=== PATIENT | male | born 1950 | race African-American/Black ===

== ENCOUNTER 2017-05-04 22:40 | Inpatient (IN) | payer MEDICARE, MEDICAID ==
[~2017-05-04] VITALS: Ht 175.3 cm; Wt 80.0 kg
[~2017-05-04 22:40] MED LIST: ASPI81TA30 PO; CARV3.1289 PO; CLOP75TA35 PO; FURO40TA4 PO; GLYB2.5T4 PO; HYDR-569 PO; LISI-604 PO; NIT5P TD; NITR0.4T48 SL; POTA10TA36 PO; SIMV20TA5 PO
[2017-05-04] MEDS ORDERED: normal saline 1000ML IV soln IVB ONE (22:50)
[2017-05-04 23:31] LABS: BASOPHILS % (AUTO) 0.4 % (0-1); EOSINOPHILS # (AUTO) 0.4 X10'3 (0-0.9); EOSINOPHILS % (AUTO) 3.8 % (0-6); HEMATOCRIT 25.2 % (42.0-52.0); LYMPHOCYTES # (AUTO) 0.7 X10'3 (1.1-4.8); MEAN CORPUSCULAR HEMOGLOBIN 25.6 PG (27.0-31.0); MEAN CORPUSCULAR HGB CONC 31.9 % (33.0-36.5); MEAN CORPUSCULAR VOLUME 80.2 FL (78-98); MEAN PLATELET VOLUME 10.3 FL (7.4-10.4); MONOCYTES # (AUTO) 0.9 X10'3 (0-0.9); MONOCYTES % (AUTO) 8.1 % (2-12); NEUTROPHILS # (AUTO) 9.3 X10'3 (1.8-7.7); NEUTROPHILS % (AUTO) 81.7 % (42-75); PLATELET COUNT 192 X10'3 (140-440); RED BLOOD COUNT 3.14 X10'6 (4.70-6.10); RED CELL DISTRIBUTION WIDTH 18.7 % (11.5-14.5); WHITE BLOOD COUNT 11.4 X10'3 (4.5-11.0)
[2017-05-04 23:34] LABS: INR 1.5 INR; PARTIAL THROMBOPLASTIN TIME 26 SECONDS (22-32)
[2017-05-04 23:39] LABS: ALANINE AMINOTRANSFERASE 43 U/L (12-78); ALBUMIN/GLOBULIN RATIO 0.3 (1.1-1.5); ALKALINE PHOSPHATASE 273 IU/L (46-116); ANION GAP 11 (8-16); ASPARTATE AMINO TRANSFERASE 43 U/L (10-37); BILIRUBIN,TOTAL 1.7 MG/DL (0.1-1.0); BLOOD UREA NITROGEN 105 MG/DL (7-18); BUN/CREATININE RATIO 18.9 (5.4-32.0); CALCIUM 8.8 MG/DL (8.5-10.1); CHLORIDE 103 MMOL/L (99-107); CREATININE 5.57 MG/DL (0.60-1.10); GLUCOSE 225 MG/DL (70-104); POTASSIUM 5.5 MMOL/L (3.5-5.1); SODIUM 137 MMOL/L (135-145); TOTAL CARBON DIOXIDE 23.1 MMOL/L (24-32); TOTAL PROTEIN 8.6 G/DL (6.4-8.2); eGFR 12 ML/MIN
[2017-05-04 23:47] LABS: MAGNESIUM 2.5 MG/DL (1.5-2.4); TROPONIN I < 0.04 NG/ML (0.0-0.05)
[2017-05-05] VITALS (7 sets, daily range): BP systolic 111–158; BP diastolic 41–51
[2017-05-05 00:06] LABS: CLARITY,URINE SLIGHTLY CLOUDY (Clear); COLOR,URINE YELLOW (Yellow); GLUCOSE, URINE NEGATIVE (Neg); KETONES,URINE NEGATIVE (Neg); LEUKOCYTE ESTERASE ,URINE SMALL (Neg); NITRITES, URINE NEGATIVE (Neg); OCCULT BLOOD,URINE LARGE (Neg); PH,URINE 5.5 (4.8-8.0); PROTEIN,URINE 100 mg/dl (Neg); UROBILINOGEN,URINE 0.2 E.U/dL (0.2-1.0)
[2017-05-05 00:08] LABS: UA COLLECTION TYPE FOLEY CATH
[2017-05-05 00:14] LABS: BACTERIA,URINE FEW /HPF (Neg); MUCUS STRANDS NONE SEEN /LPF (Neg); RBC,URINE 20-50 /HPF (0-2); SQUAMOUS EPITHELIAL CELL,UR NONE SEEN /LPF (FEW); WBC,URINE 20-30 /HPF (0-4)
[2017-05-05 00:15] LABS: YEAST MANY /HPF (NEGATIVE)
[2017-05-05] MEDS ORDERED: sodium polystyrene sulfonate 15gm/60ml oral suspension PO ONE (00:45)
[2017-05-05] MEDS ORDERED: cefepime 1GM/NS ADD-VANTAGE 100 ML IV ONE (01:00)
[2017-05-05] MEDS ORDERED: vancomycin/NS 1 GM ADD-VANTAGE 250 ML IV ONE (01:00)
[2017-05-05] MEDS ORDERED: azithromycin/NS 500mg/250ml 250 ML IV ONE (01:00)
[2017-05-05 01:40] LABS: ANISOCYTOSIS 2+; NUCLEATED RED BLOOD CELLS 1 /100WBC (0-0); PLATELET ESTIMATE NORMAL; TOTAL CELLS COUNTED 100
[2017-05-05 01:41] LABS: POLYCHROMASIA 1+
[2017-05-05 01:42] LABS: HYPOCHROMASIA 1+
[2017-05-05 01:43] LABS: TARGET CELLS FEW
[2017-05-05] MEDS ORDERED: ondansetron/PF 4mg/2ml inj IV PRN (02:55)
[2017-05-05] MEDS ORDERED: acetaminophen 325mg tablet PO PRN (02:55)
[2017-05-05] MEDS ORDERED: MESSAGE TO PHARMACY PO ONE (03:00)
[2017-05-05] MEDS ORDERED: dextrose 50%-water 50ml dispensing syringe IV PRN ×2 (03:00)
[2017-05-05] MEDS ORDERED: fluconazole-Diflucan 100MG/NS 50 ML IV ONE ×2 (03:00→04:04)
[2017-05-05] MEDS ORDERED: dextrose ORAL solution 15 GM/59 ML bottle PO PRN ×2 (03:00)
[2017-05-05] MEDS ORDERED: glucagon, human recombinant 1mg kit SUBCUT PRN (03:00)
[2017-05-05] MEDS: normal saline 1000ml 1,000 ML IV SCH ×2 (03:24→16:43)
[2017-05-05] MEDS ORDERED: ISOS30TA6 PO (03:50)
[2017-05-05] MEDS ORDERED: PREG50CA PO (03:50)
[2017-05-05] MEDS ORDERED: CEFE2FRO IV (03:50)
[2017-05-05] MEDS ORDERED: GUAI100L97 PO (03:50)
[2017-05-05] MEDS ORDERED: INSU100C10 SQ (03:50)
[2017-05-05] MEDS ORDERED: POLY17PO10 PO (03:50)
[2017-05-05] MEDS ORDERED: LEVO500T2 PO (03:50)
[2017-05-05] MEDS ORDERED: FLO0.4C PO (03:50)
[2017-05-05] MEDS ORDERED: DOCU-28 PO (03:50)
[2017-05-05] MEDS ORDERED: vancomycin/NS 1 GM ADD-VANTAGE 250 ML IV PRN (06:30)
[2017-05-05] MEDS ORDERED: fluconazole-Diflucan 200mg/NS 100 ML IV SCH (08:00)
[2017-05-05] MEDS ORDERED: [UNRECOGNIZED DRUG - OTHER] IV ONE (08:00)
[2017-05-05] MEDS: carVEDilol 3.125mg tablet PO SCH ×2 (08:00→20:00)
[2017-05-05] MEDS: meropenem inj 500 MG in normal saline 100ml IV soln 100 ML IV SCH ×2 (08:12→16:43)
[2017-05-05] MEDS: clopidogrel 75mg tablet PO SCH (08:18)
[2017-05-05] MEDS: aspirin 81mg tab.chew PO SCH (08:20)
[2017-05-05] MEDS: tamsulosin 0.4mg capsule PO SCH (08:20)
[2017-05-05] MEDS: isosorbide mononitrate 30mg tab.SR.24H PO SCH (08:20)
[2017-05-05] MEDS: insulin Lispro (HumaLOG) vial - multi-dose SQ SCH ×2 (08:27→13:51)
[2017-05-05] MEDS: DOBUTamine-DoBUTrex 500mg/D5W 250 ML IV SCH (10:55)
[2017-05-05 12:10] LABS: FERRITIN 425 NG/ML (26-388)
[2017-05-05 12:46] LABS: % IRON SATURATION 15 % (11-46); IRON 33 UG/DL (53-167); TOTAL IRON BINDING CAPACITY 220 UG/DL (259-388)
[2017-05-05] MEDS: Insulin Detemir pen SQ SCH (21:52)
[2017-05-06] VITALS (10 sets, daily range): BP systolic 134–157; BP diastolic 41–72
[2017-05-06] MEDS: meropenem inj 500 MG in normal saline 100ml IV soln 100 ML IV SCH ×2 (00:17→09:06)
[2017-05-06] MEDS: VANCOMYCIN LEVEL IV SCH (03:00)
[2017-05-06] MEDS: normal saline 1000ml 1,000 ML IV SCH ×2 (05:34→18:54)
[2017-05-06 06:09] LABS: BASOPHILS # (AUTO) 0.1 X10'3 (0-0.2); BASOPHILS % (AUTO) 0.8 % (0-1); EOSINOPHILS # (AUTO) 0.4 X10'3 (0-0.9); EOSINOPHILS % (AUTO) 2.9 % (0-6); HEMATOCRIT 23.1 % (42.0-52.0); HEMOGLOBIN 7.5 g/dl (14.0-17.9); LYMPHOCYTES % (AUTO) 7.5 % (21-51); MEAN CORPUSCULAR HEMOGLOBIN 26.1 PG (27.0-31.0); MEAN CORPUSCULAR HGB CONC 32.5 % (33.0-36.5); MEAN CORPUSCULAR VOLUME 80.2 FL (78-98); MEAN PLATELET VOLUME 9.8 FL (7.4-10.4); MONOCYTES % (AUTO) 7.7 % (2-12); NEUTROPHILS # (AUTO) 10.8 X10'3 (1.8-7.7); NEUTROPHILS % (AUTO) 81.1 % (42-75); PLATELET COUNT 224 X10'3 (140-440); RED BLOOD COUNT 2.88 X10'6 (4.70-6.10); RED CELL DISTRIBUTION WIDTH 18.3 % (11.5-14.5); WHITE BLOOD COUNT 13.3 X10'3 (4.5-11.0)
[2017-05-06 06:32] LABS: ALBUMIN 1.7 G/DL (3.4-5.0); ANION GAP 11 (8-16); BLOOD UREA NITROGEN 103 MG/DL (7-18); BUN/CREATININE RATIO 16.6 (5.4-32.0); CALCIUM 8.5 MG/DL (8.5-10.1); CHLORIDE 108 MMOL/L (99-107); CREATININE 6.21 MG/DL (0.60-1.10); GLUCOSE 111 MG/DL (70-104); MAGNESIUM 2.3 MG/DL (1.5-2.4); POTASSIUM 5.1 MMOL/L (3.5-5.1); SODIUM 141 MMOL/L (135-145); TOTAL CARBON DIOXIDE 22.1 MMOL/L (24-32); VANCOMYCIN,RANDOM 34.3 UG/ML; eGFR 11 ML/MIN
[2017-05-06] MEDS: clopidogrel 75mg tablet PO SCH (08:00)
[2017-05-06] MEDS: tamsulosin 0.4mg capsule PO SCH (08:00)
[2017-05-06] MEDS: isosorbide mononitrate 30mg tab.SR.24H PO SCH (08:55)
[2017-05-06] MEDS: carVEDilol 3.125mg tablet PO SCH ×2 (08:57→20:00)
[2017-05-06] MEDS: aspirin 81mg tab.chew PO SCH (08:57)
[2017-05-06] MEDS: DOBUTamine-DoBUTrex 500mg/D5W 250 ML IV SCH (09:05)
[2017-05-06 13:16] LABS: PHOSPHORUS 8.6 MG/DL (2.3-4.5)
[2017-05-06] MEDS ORDERED: meropenem inj 500 MG in normal saline 100ml IV soln 100 ML IV SCH (20:00)
[2017-05-06] MEDS: Insulin Detemir pen SQ SCH (21:00)
[2017-05-07 03:00] VITALS: BP 132/50
[2017-05-07] MEDS: VANCOMYCIN LEVEL IV SCH (03:00)
[2017-05-07 05:30] LABS: BASOPHILS # (AUTO) 0.2 X10'3 (0-0.2); BASOPHILS % (AUTO) 1.6 % (0-1); EOSINOPHILS # (AUTO) 0.3 X10'3 (0-0.9); EOSINOPHILS % (AUTO) 2.2 % (0-6); HEMOGLOBIN 7.3 g/dl (14.0-17.9); LYMPHOCYTES # (AUTO) 0.8 X10'3 (1.1-4.8); LYMPHOCYTES % (AUTO) 7.3 % (21-51); MEAN CORPUSCULAR HEMOGLOBIN 25.6 PG (27.0-31.0); MEAN CORPUSCULAR HGB CONC 31.8 % (33.0-36.5); MEAN CORPUSCULAR VOLUME 80.6 FL (78-98); MEAN PLATELET VOLUME 9.6 FL (7.4-10.4); MONOCYTES # (AUTO) 0.8 X10'3 (0-0.9); NEUTROPHILS # (AUTO) 9.5 X10'3 (1.8-7.7); NEUTROPHILS % (AUTO) 81.9 % (42-75); PLATELET COUNT 238 X10'3 (140-440); RED BLOOD COUNT 2.85 X10'6 (4.70-6.10); WHITE BLOOD COUNT 11.6 X10'3 (4.5-11.0)
[2017-05-07 06:00] LABS: ALBUMIN 1.6 G/DL (3.4-5.0); ANION GAP 10 (8-16); BLOOD UREA NITROGEN 108 MG/DL (7-18); BUN/CREATININE RATIO 15.4 (5.4-32.0); CALCIUM 8.3 MG/DL (8.5-10.1); CHLORIDE 110 MMOL/L (99-107); CREATININE 7.03 MG/DL (0.60-1.10); GLUCOSE 92 MG/DL (70-104); POTASSIUM 5.7 MMOL/L (3.5-5.1); SODIUM 141 MMOL/L (135-145); TOTAL CARBON DIOXIDE 21.4 MMOL/L (24-32); VANCOMYCIN,RANDOM 30.1 UG/ML; eGFR 10 ML/MIN
[2017-05-07 07:00] VITALS: BP 121/42
[2017-05-07] MEDS: tamsulosin 0.4mg capsule PO SCH (08:00)
[2017-05-07] MEDS: clopidogrel 75mg tablet PO SCH (08:00)
[2017-05-07] MEDS: aspirin 81mg tab.chew PO SCH (08:00)
[2017-05-07] MEDS: isosorbide mononitrate 30mg tab.SR.24H PO SCH (08:00)
[2017-05-07] MEDS: carVEDilol 3.125mg tablet PO SCH ×2 (08:00→20:00)
[2017-05-07 11:00] VITALS: BP 118/44
[2017-05-07] MEDS ORDERED: normal saline 1000ml 100 ML IV PRN (12:34)
[2017-05-07] MEDS ORDERED: normal saline 1000ml 250 ML IV PRN (12:34)
[2017-05-07] MEDS ORDERED: epoetin 20,000 units/ml inj IV ONE (12:35)
[2017-05-07] MEDS ORDERED: LIDOcaine 2% 5ml jelly MM ONE (12:50)
[2017-05-07 15:00] VITALS: BP 115/43
[2017-05-07 19:00] VITALS: BP 122/40
[2017-05-07] MEDS: Insulin Detemir pen SQ SCH (21:00)
[2017-05-07 23:00] VITALS: BP 122/45
[2017-05-08] VITALS (14 sets, daily range): BP systolic 119–155; BP diastolic 36–51
[2017-05-08] MEDS: VANCOMYCIN LEVEL IV SCH (03:00)
[2017-05-08 06:00] LABS: BASOPHILS # (AUTO) 0.1 X10'3 (0-0.2); BASOPHILS % (AUTO) 0.7 % (0-1); EOSINOPHILS # (AUTO) 0.2 X10'3 (0-0.9); EOSINOPHILS % (AUTO) 1.8 % (0-6); HEMATOCRIT 23.4 % (42.0-52.0); HEMOGLOBIN 7.5 g/dl (14.0-17.9); LYMPHOCYTES # (AUTO) 0.9 X10'3 (1.1-4.8); MEAN CORPUSCULAR HEMOGLOBIN 25.8 PG (27.0-31.0); MEAN CORPUSCULAR HGB CONC 31.9 % (33.0-36.5); MEAN CORPUSCULAR VOLUME 80.9 FL (78-98); MEAN PLATELET VOLUME 9.6 FL (7.4-10.4); MONOCYTES # (AUTO) 0.8 X10'3 (0-0.9); MONOCYTES % (AUTO) 7.5 % (2-12); PLATELET COUNT 256 X10'3 (140-440); RED CELL DISTRIBUTION WIDTH 19.5 % (11.5-14.5)
[2017-05-08 06:19] LABS: ALBUMIN 1.6 G/DL (3.4-5.0); ANION GAP 12 (8-16); BLOOD UREA NITROGEN 116 MG/DL (7-18); BUN/CREATININE RATIO 14.2 (5.4-32.0); CALCIUM 7.9 MG/DL (8.5-10.1); CHLORIDE 110 MMOL/L (99-107); CREATININE 8.16 MG/DL (0.60-1.10); GLUCOSE 78 MG/DL (70-104); SODIUM 141 MMOL/L (135-145); TOTAL CARBON DIOXIDE 19.3 MMOL/L (24-32); VANCOMYCIN,RANDOM 29.3 UG/ML; eGFR 8 ML/MIN
[2017-05-08 06:34] LABS: POTASSIUM 6.2 MMOL/L (3.5-5.1)
[2017-05-08] MEDS: carVEDilol 3.125mg tablet PO SCH ×2 (06:45→20:00)
[2017-05-08] MEDS: aspirin 81mg tab.chew PO SCH (06:45)
[2017-05-08] MEDS: LACTOBACILLUS RHAMNOSUS GG 15 billion unit sprinkle caps PO SCH (06:45)
[2017-05-08] MEDS: isosorbide mononitrate 30mg tab.SR.24H PO SCH (06:46)
[2017-05-08] MEDS: tamsulosin 0.4mg capsule PO SCH (06:46)
[2017-05-08] MEDS: clopidogrel 75mg tablet PO SCH (06:46)
[2017-05-08] MEDS ORDERED: sodium polystyrene sulfonate 15gm/60ml oral suspension PO ONE (07:50)
[2017-05-08] MEDS ORDERED: heparin 1,000 units/ml 10ml inj HE ONE ×2 (08:00)
[2017-05-08] MEDS: meropenem inj 500 MG in normal saline 100ml IV soln 100 ML IV SCH (08:41)
[2017-05-08] MEDS ORDERED: POTA10TA15 (11:28)
[2017-05-08] MEDS ORDERED: ATOR40TA72 (11:28)
[2017-05-08] MEDS ORDERED: FERR325T28 (11:28)
[2017-05-08] MEDS ORDERED: LIDOcaine 1%/PF (10mg/ml) 5ml vial SQ ONE ×2 (11:35→12:25)
[2017-05-08] MEDS ORDERED: heparin 1,000 units/ml 10ml inj ICATH ONE ×2 (11:35→12:25)
[2017-05-08] MEDS ORDERED: LIDOcaine 1%/PF (10mg/ml) 5ml vial ONE (11:36)
[2017-05-08] MEDS ORDERED: heparin 1,000unit/ml 10ml vial 10 ML ONE (11:38)
[2017-05-08] MEDS ORDERED: fentaNYL/PF 50MCG/1 ML 2ML syringe ONE (12:17)
[2017-05-08] MEDS ORDERED: midazolam 2 mg/2 ml injection ONE (12:17)
[2017-05-08] MEDS ORDERED: midazolam 2 mg/2 ml injection IV PRN (12:25)
[2017-05-08] MEDS ORDERED: fentaNYL/PF 50MCG/1 ML 2ML syringe IV PRN (12:25)
[2017-05-08] MEDS: Insulin Detemir pen SQ SCH (21:00)
[2017-05-09 03:00] VITALS: BP 126/33
[2017-05-09] MEDS: VANCOMYCIN LEVEL IV SCH (03:00)
[2017-05-09 05:25] LABS: BASOPHILS % (AUTO) 0.2 % (0-1); EOSINOPHILS # (AUTO) 0.1 X10'3 (0-0.9); HEMATOCRIT 23.1 % (42.0-52.0); HEMOGLOBIN 7.4 g/dl (14.0-17.9); LYMPHOCYTES # (AUTO) 0.9 X10'3 (1.1-4.8); LYMPHOCYTES % (AUTO) 6.7 % (21-51); MEAN CORPUSCULAR HEMOGLOBIN 25.8 PG (27.0-31.0); MEAN CORPUSCULAR HGB CONC 32.2 % (33.0-36.5); MEAN PLATELET VOLUME 8.6 FL (7.4-10.4); MONOCYTES # (AUTO) 0.6 X10'3 (0-0.9); NEUTROPHILS # (AUTO) 11.1 X10'3 (1.8-7.7); NEUTROPHILS % (AUTO) 87.1 % (42-75); PLATELET COUNT 261 X10'3 (140-440); RED BLOOD COUNT 2.89 X10'6 (4.70-6.10); WHITE BLOOD COUNT 12.8 X10'3 (4.5-11.0)
[2017-05-09 06:00] VITALS: BP 128/37
[2017-05-09 06:05] LABS: ALBUMIN 1.7 G/DL (3.4-5.0); ANION GAP 10 (8-16); BLOOD UREA NITROGEN 70 MG/DL (7-18); BUN/CREATININE RATIO 12.1 (5.4-32.0); CALCIUM 7.7 MG/DL (8.5-10.1); CHLORIDE 105 MMOL/L (99-107); GLUCOSE 83 MG/DL (70-104); POTASSIUM 4.8 MMOL/L (3.5-5.1); SODIUM 139 MMOL/L (135-145); TOTAL CARBON DIOXIDE 24.4 MMOL/L (24-32); VANCOMYCIN,RANDOM 22.6 UG/ML; eGFR 12 ML/MIN
[2017-05-09] MEDS ORDERED: heparin 1,000unit/ml 10ml vial 10 ML IV ONE (06:34)
[2017-05-09] MEDS ORDERED: epoetin 20,000 units/ml inj IV ONE (06:35)
[2017-05-09] MEDS ORDERED: sodium ferric gluc complex inj 25 MG in normal saline 50ml IV soln 48 ML IV ONE (06:35)
[2017-05-09] MEDS ORDERED: albumin (human) 25% 100ml IV 100 ML IV PRN (06:35)
[2017-05-09] MEDS ORDERED: heparin 1,000 units/ml 10ml inj IV ONE (06:35)
[2017-05-09] MEDS ORDERED: heparin 1,000 units/ml 10ml inj HE ONE ×2 (06:40)
[2017-05-09] MEDS: LACTOBACILLUS RHAMNOSUS GG 15 billion unit sprinkle caps PO SCH (07:30)
[2017-05-09] MEDS: aspirin 81mg tab.chew PO SCH (08:00)
[2017-05-09] MEDS: carVEDilol 3.125mg tablet PO SCH ×2 (08:00→20:00)
[2017-05-09] MEDS: clopidogrel 75mg tablet PO SCH (08:00)
[2017-05-09] MEDS: meropenem inj 500 MG in normal saline 100ml IV soln 100 ML IV SCH (08:23)
[2017-05-09 11:00] VITALS: BP 135/37
[2017-05-09] MEDS: sodium ferric gluc complex inj 125 MG in normal saline 100ml IV soln 100 ML IV SCH (13:01)
[2017-05-09 15:00] VITALS: BP 150/56
[2017-05-09 18:30] VITALS: BP 158/49
[2017-05-09 22:00] VITALS: BP 155/53
[2017-05-09] MEDS: Insulin Detemir pen SQ SCH (22:43)
[2017-05-10 02:00] VITALS: BP 169/50
[2017-05-10 05:26] LABS: BASOPHILS # (AUTO) 0.1 X10'3 (0-0.2); BASOPHILS % (AUTO) 0.5 % (0-1); EOSINOPHILS % (AUTO) 0 % (0-6); HEMATOCRIT 23.9 % (42.0-52.0); HEMOGLOBIN 7.6 g/dl (14.0-17.9); LYMPHOCYTES # (AUTO) 0.9 X10'3 (1.1-4.8); LYMPHOCYTES % (AUTO) 6.9 % (21-51); MEAN CORPUSCULAR HEMOGLOBIN 25.7 PG (27.0-31.0); MEAN CORPUSCULAR HGB CONC 31.8 % (33.0-36.5); MEAN CORPUSCULAR VOLUME 80.7 FL (78-98); MEAN PLATELET VOLUME 8.6 FL (7.4-10.4); MONOCYTES # (AUTO) 0.8 X10'3 (0-0.9); MONOCYTES % (AUTO) 6.2 % (2-12); NEUTROPHILS # (AUTO) 11.3 X10'3 (1.8-7.7); NEUTROPHILS % (AUTO) 86.4 % (42-75); PLATELET COUNT 274 X10'3 (140-440); RED BLOOD COUNT 2.96 X10'6 (4.70-6.10); RED CELL DISTRIBUTION WIDTH 19.5 % (11.5-14.5); WHITE BLOOD COUNT 13.1 X10'3 (4.5-11.0)
[2017-05-10 05:55] LABS: ALBUMIN 1.7 G/DL (3.4-5.0); ANION GAP 10 (8-16); BLOOD UREA NITROGEN 41 MG/DL (7-18); BUN/CREATININE RATIO 9.8 (5.4-32.0); CALCIUM 7.7 MG/DL (8.5-10.1); CHLORIDE 102 MMOL/L (99-107); GLUCOSE 83 MG/DL (70-104); POTASSIUM 3.9 MMOL/L (3.5-5.1); SODIUM 138 MMOL/L (135-145); TOTAL CARBON DIOXIDE 26.1 MMOL/L (24-32); VANCOMYCIN,RANDOM 19.4 UG/ML; eGFR 17 ML/MIN
[2017-05-10 06:00] VITALS: BP 149/50
[2017-05-10] MEDS: VANCOMYCIN LEVEL IV SCH (06:06)
[2017-05-10] MEDS ORDERED: heparin 1,000unit/ml 10ml vial 10 ML IV ONE (07:07)
[2017-05-10] MEDS ORDERED: albumin (human) 25% 100ml IV 100 ML IV PRN (07:10)
[2017-05-10] MEDS ORDERED: heparin 1,000 units/ml 10ml inj IV ONE (07:10)
[2017-05-10] MEDS ORDERED: epoetin 20,000 units/ml inj IV ONE (07:10)
[2017-05-10] MEDS ORDERED: heparin 1,000 units/ml 10ml inj HE ONE ×2 (07:15)
[2017-05-10] MEDS: LACTOBACILLUS RHAMNOSUS GG 15 billion unit sprinkle caps PO SCH (07:30)
[2017-05-10] MEDS: carVEDilol 3.125mg tablet PO SCH ×2 (08:00→20:00)
[2017-05-10] MEDS: clopidogrel 75mg tablet PO SCH (08:00)
[2017-05-10] MEDS: aspirin 81mg tab.chew PO SCH (08:00)
[2017-05-10] MEDS: meropenem inj 500 MG in normal saline 100ml IV soln 100 ML IV SCH (08:15)
[2017-05-10 08:41] LABS: ANISOCYTOSIS 2+; HYPOCHROMASIA 2+; LARGE PLATELETS FEW; PLATELET ESTIMATE NORMAL; POIKILOCYTOSIS 1+; POLYCHROMASIA 1+
[2017-05-10] MEDS: cefTRIAXone 1g/NS 100ml IVPB 100 ML IV SCH (10:26)
[2017-05-10 11:00] VITALS: BP 151/50
[2017-05-10 11:22] LABS: OCCULT BLOOD STOOL NEGATIVE (Neg)
[2017-05-10] MEDS: sodium ferric gluc complex inj 125 MG in normal saline 100ml IV soln 100 ML IV SCH (11:33)
[2017-05-10] MEDS: levetiracetam inj 500 MG in normal saline 100ml IV soln 95 ML IV SCH ×2 (13:20→21:19)
[2017-05-10 15:00] VITALS: BP 146/60
[2017-05-10 18:00] VITALS: BP 142/54
[2017-05-10] MEDS: Insulin Detemir pen SQ SCH (21:00)
[2017-05-10 22:00] VITALS: BP 151/53
[2017-05-11 02:00] VITALS: BP 153/48
[2017-05-11 06:00] VITALS: BP 152/44
[2017-05-11] MEDS: cefTRIAXone 1g/NS 100ml IVPB 100 ML IV SCH (08:37)
[2017-05-11] MEDS: levetiracetam inj 500 MG in normal saline 100ml IV soln 95 ML IV SCH (08:37)
[2017-05-11] MEDS: sodium ferric gluc complex inj 125 MG in normal saline 100ml IV soln 100 ML IV SCH (08:38)
[2017-05-11 08:41] LABS: BASOPHILS % (AUTO) 0.3 % (0-1); EOSINOPHILS # (AUTO) 0.2 X10'3 (0-0.9); EOSINOPHILS % (AUTO) 1.7 % (0-6); HEMATOCRIT 24.2 % (42.0-52.0); HEMOGLOBIN 8.4 g/dl (14.0-17.9); LYMPHOCYTES # (AUTO) 0.9 X10'3 (1.1-4.8); MEAN CORPUSCULAR HEMOGLOBIN 27.3 PG (27.0-31.0); MEAN CORPUSCULAR HGB CONC 34.5 % (33.0-36.5); MEAN CORPUSCULAR VOLUME 79.2 FL (78-98); MEAN PLATELET VOLUME 8.1 FL (7.4-10.4); MONOCYTES # (AUTO) 0.9 X10'3 (0-0.9); MONOCYTES % (AUTO) 7.5 % (2-12); NEUTROPHILS # (AUTO) 10.5 X10'3 (1.8-7.7); NEUTROPHILS % (AUTO) 83.5 % (42-75); PLATELET COUNT 315 X10'3 (140-440); RED BLOOD COUNT 3.06 X10'6 (4.70-6.10); RED CELL DISTRIBUTION WIDTH 19.2 % (11.5-14.5); WHITE BLOOD COUNT 12.5 X10'3 (4.5-11.0)
[2017-05-11] MEDS: carVEDilol 3.125mg tablet PO SCH ×2 (08:51→20:00)
[2017-05-11] MEDS: clopidogrel 75mg tablet PO SCH (08:51)
[2017-05-11] MEDS: LACTOBACILLUS RHAMNOSUS GG 15 billion unit sprinkle caps PO SCH (08:51)
[2017-05-11] MEDS: aspirin 81mg tab.chew PO SCH (08:51)
[2017-05-11 08:54] LABS: ALBUMIN 1.8 G/DL (3.4-5.0); ANION GAP 9 (8-16); BLOOD UREA NITROGEN 24 MG/DL (7-18); BUN/CREATININE RATIO 7.3 (5.4-32.0); CALCIUM 8.1 MG/DL (8.5-10.1); CHLORIDE 102 MMOL/L (99-107); GLUCOSE 80 MG/DL (70-104); POTASSIUM 3.9 MMOL/L (3.5-5.1); SODIUM 139 MMOL/L (135-145); TOTAL CARBON DIOXIDE 28.5 MMOL/L (24-32); eGFR 23 ML/MIN
[2017-05-11 09:13] LABS: NUCLEATED RED BLOOD CELLS 1 /100WBC (0-0); TOTAL CELLS COUNTED 100
[2017-05-11 09:14] LABS: ANISOCYTOSIS 2+; HYPOCHROMASIA 1+; LARGE PLATELETS FEW; PLATELET ESTIMATE NORMAL; POLYCHROMASIA 1+; ROULEAUX 1+; TARGET CELLS 1+; TOXIC GRANULATION 1+
[2017-05-11 11:00] VITALS: BP 153/50
[2017-05-11 13:28] LABS: HBSAG SCREEN Negative (Negative)
[2017-05-11 15:00] VITALS: BP 146/76
[2017-05-11 19:00] VITALS: BP 147/52
[2017-05-11] MEDS: Insulin Detemir pen SQ SCH (21:00)
[2017-05-11 23:00] VITALS: BP 151/70
[2017-05-12 03:00] VITALS: BP 167/58
[2017-05-12 06:00] VITALS: BP 112/61
[2017-05-12] MEDS: aspirin 81mg tab.chew PO SCH ×2 (07:32→07:43)
[2017-05-12] MEDS: clopidogrel 75mg tablet PO SCH ×2 (07:32→07:44)
[2017-05-12] MEDS: cefTRIAXone 1g/NS 100ml IVPB 100 ML IV SCH (07:32)
[2017-05-12] MEDS: carVEDilol 3.125mg tablet PO SCH ×3 (07:33→19:44)
[2017-05-12] MEDS: isosorbide mononitrate 30mg tab.SR.24H PO SCH (08:00)
[2017-05-12] MEDS: sodium ferric gluc complex inj 125 MG in normal saline 100ml IV soln 100 ML IV SCH (08:35)
[2017-05-12 08:37] LABS: BASOPHILS # (AUTO) 0.1 X10'3 (0-0.2); BASOPHILS % (AUTO) 0.7 % (0-1); EOSINOPHILS # (AUTO) 0.2 X10'3 (0-0.9); EOSINOPHILS % (AUTO) 1.4 % (0-6); HEMATOCRIT 24.7 % (42.0-52.0); HEMOGLOBIN 7.9 g/dl (14.0-17.9); LYMPHOCYTES # (AUTO) 1.1 X10'3 (1.1-4.8); LYMPHOCYTES % (AUTO) 9.4 % (21-51); MEAN CORPUSCULAR HGB CONC 32.1 % (33.0-36.5); MEAN CORPUSCULAR VOLUME 81.1 FL (78-98); MONOCYTES # (AUTO) 0.9 X10'3 (0-0.9); MONOCYTES % (AUTO) 7.3 % (2-12); NEUTROPHILS # (AUTO) 9.5 X10'3 (1.8-7.7); NEUTROPHILS % (AUTO) 81.2 % (42-75); PLATELET COUNT 317 X10'3 (140-440); RED BLOOD COUNT 3.05 X10'6 (4.70-6.10); RED CELL DISTRIBUTION WIDTH 19.9 % (11.5-14.5); WHITE BLOOD COUNT 11.7 X10'3 (4.5-11.0)
[2017-05-12 08:47] LABS: ALBUMIN 1.9 G/DL (3.4-5.0); ANION GAP 9 (8-16); BLOOD UREA NITROGEN 33 MG/DL (7-18); BUN/CREATININE RATIO 6.9 (5.4-32.0); CALCIUM 8.4 MG/DL (8.5-10.1); CHLORIDE 103 MMOL/L (99-107); GLUCOSE 108 MG/DL (70-104); POTASSIUM 3.7 MMOL/L (3.5-5.1); SODIUM 140 MMOL/L (135-145); TOTAL CARBON DIOXIDE 27.9 MMOL/L (24-32); eGFR 15 ML/MIN
[2017-05-12] MEDS ORDERED: heparin 1,000unit/ml 10ml vial 10 ML IV ONE (10:44)
[2017-05-12] MEDS ORDERED: heparin 1,000 units/ml 10ml inj IV ONE (10:45)
[2017-05-12] MEDS ORDERED: albumin (human) 25% 100ml IV 100 ML IV PRN (10:45)
[2017-05-12] MEDS ORDERED: epoetin 20,000 units/ml inj IV ONE (10:45)
[2017-05-12] MEDS ORDERED: heparin 1,000 units/ml 10ml inj HE ONE ×2 (10:50→17:15)
[2017-05-12 11:00] VITALS: BP 151/58
[2017-05-12 15:00] VITALS: BP 146/89
[2017-05-12 18:00] VITALS: BP 151/66
[2017-05-12] MEDS: Insulin Detemir pen SQ SCH (21:00)
[2017-05-12 22:00] VITALS: BP 156/70
[2017-05-13 02:00] VITALS: BP 155/60
[2017-05-13 06:00] VITALS: BP 156/70
[2017-05-13] MEDS ORDERED: sincalide inj 1.6 MCG in normal saline 50ml IV soln 50 ML IV ONE ×2 (09:30→13:45)
[2017-05-13] MEDS: isosorbide mononitrate 30mg tab.SR.24H PO SCH (09:37)
[2017-05-13] MEDS: clopidogrel 75mg tablet PO SCH (09:37)
[2017-05-13] MEDS: cefTRIAXone 1g/NS 100ml IVPB 100 ML IV SCH (09:37)
[2017-05-13] MEDS: aspirin 81mg tab.chew PO SCH (09:38)
[2017-05-13] MEDS: carVEDilol 3.125mg tablet PO SCH ×2 (09:38→20:37)
[2017-05-13 11:00] VITALS: BP 143/60
[2017-05-13 11:00] LABS: BASOPHILS # (AUTO) 0.2 X10'3 (0-0.2); BASOPHILS % (AUTO) 1.5 % (0-1); EOSINOPHILS # (AUTO) 0.3 X10'3 (0-0.9); EOSINOPHILS % (AUTO) 2.1 % (0-6); HEMATOCRIT 24.6 % (42.0-52.0); HEMOGLOBIN 7.8 g/dl (14.0-17.9); LYMPHOCYTES # (AUTO) 1.3 X10'3 (1.1-4.8); LYMPHOCYTES % (AUTO) 10.4 % (21-51); MEAN CORPUSCULAR HGB CONC 31.7 % (33.0-36.5); MEAN CORPUSCULAR VOLUME 82.2 FL (78-98); MONOCYTES # (AUTO) 0.8 X10'3 (0-0.9); MONOCYTES % (AUTO) 6.7 % (2-12); NEUTROPHILS # (AUTO) 9.9 X10'3 (1.8-7.7); NEUTROPHILS % (AUTO) 79.3 % (42-75); PLATELET COUNT 310 X10'3 (140-440); RED BLOOD COUNT 2.99 X10'6 (4.70-6.10); RED CELL DISTRIBUTION WIDTH 20.2 % (11.5-14.5); WHITE BLOOD COUNT 12.4 X10'3 (4.5-11.0)
[2017-05-13 11:13] LABS: ALANINE AMINOTRANSFERASE 23 U/L (12-78); ALBUMIN 1.8 G/DL (3.4-5.0); ALBUMIN/GLOBULIN RATIO 0.3 (1.1-1.5); ALKALINE PHOSPHATASE 135 IU/L (46-116); ANION GAP 6 (8-16); ASPARTATE AMINO TRANSFERASE 27 U/L (10-37); BILIRUBIN,TOTAL 0.8 MG/DL (0.1-1.0); BLOOD UREA NITROGEN 21 MG/DL (7-18); BUN/CREATININE RATIO 5.8 (5.4-32.0); CALCIUM 7.9 MG/DL (8.5-10.1); CHLORIDE 102 MMOL/L (99-107); GLUCOSE 148 MG/DL (70-104); NUCLEATED RED BLOOD CELLS 3 /100WBC (0-0); POTASSIUM 3.6 MMOL/L (3.5-5.1); SODIUM 137 MMOL/L (135-145); TOTAL CARBON DIOXIDE 28.8 MMOL/L (24-32); TOTAL CELLS COUNTED 100; TOTAL PROTEIN 7.8 G/DL (6.4-8.2); eGFR 21 ML/MIN
[2017-05-13 11:14] LABS: ANISOCYTOSIS 2+; HYPOCHROMASIA 1+; MICROCYTOSIS 1+; PLATELET ESTIMATE NORMAL; POLYCHROMASIA 1+; TARGET CELLS 1+
[2017-05-13 15:00] VITALS: BP 143/59
[2017-05-13] MEDS: sodium ferric gluc complex inj 125 MG in normal saline 100ml IV soln 100 ML IV SCH (15:56)
[2017-05-13 19:00] VITALS: BP 140/56
[2017-05-13] MEDS: Insulin Detemir pen SQ SCH (20:37)
[2017-05-13] MEDS: heparin, porcine 5000 units/ml vial SQ SCH (20:37)
[2017-05-13 22:00] VITALS: BP 132/61
[2017-05-14 02:00] VITALS: BP 131/61
[2017-05-14 05:30] VITALS: BP 142/61
[2017-05-14 05:31] LABS: BASOPHILS % (AUTO) 0.2 % (0-1); EOSINOPHILS # (AUTO) 0.4 X10'3 (0-0.9); EOSINOPHILS % (AUTO) 3.1 % (0-6); HEMATOCRIT 25.5 % (42.0-52.0); HEMOGLOBIN 8.1 g/dl (14.0-17.9); LYMPHOCYTES # (AUTO) 1.5 X10'3 (1.1-4.8); LYMPHOCYTES % (AUTO) 12.5 % (21-51); MEAN CORPUSCULAR HEMOGLOBIN 26.4 PG (27.0-31.0); MEAN CORPUSCULAR HGB CONC 31.9 % (33.0-36.5); MEAN CORPUSCULAR VOLUME 82.6 FL (78-98); MEAN PLATELET VOLUME 8.2 FL (7.4-10.4); MONOCYTES # (AUTO) 0.9 X10'3 (0-0.9); MONOCYTES % (AUTO) 7.7 % (2-12); NEUTROPHILS # (AUTO) 9.3 X10'3 (1.8-7.7); NEUTROPHILS % (AUTO) 76.5 % (42-75); PLATELET COUNT 305 X10'3 (140-440); RED BLOOD COUNT 3.09 X10'6 (4.70-6.10); RED CELL DISTRIBUTION WIDTH 21.3 % (11.5-14.5); WHITE BLOOD COUNT 12.1 X10'3 (4.5-11.0)
[2017-05-14 05:53] LABS: ALBUMIN 1.9 G/DL (3.4-5.0); ANION GAP 8 (8-16); BLOOD UREA NITROGEN 29 MG/DL (7-18); BUN/CREATININE RATIO 6.3 (5.4-32.0); CALCIUM 8.5 MG/DL (8.5-10.1); CHLORIDE 102 MMOL/L (99-107); GLUCOSE 121 MG/DL (70-104); POTASSIUM 4.2 MMOL/L (3.5-5.1); SODIUM 138 MMOL/L (135-145); TOTAL CARBON DIOXIDE 27.8 MMOL/L (24-32); eGFR 15 ML/MIN
[2017-05-14 06:22] LABS: ANISOCYTOSIS 3+; MICROCYTOSIS 1+; PLATELET ESTIMATE NORMAL; POLYCHROMASIA 1+; TOTAL CELLS COUNTED 100
[2017-05-14 06:23] LABS: TARGET CELLS 1+
[2017-05-14] MEDS: clopidogrel 75mg tablet PO SCH (08:21)
[2017-05-14] MEDS: cefTRIAXone 1g/NS 100ml IVPB 100 ML IV SCH (08:21)
[2017-05-14] MEDS: carVEDilol 3.125mg tablet PO SCH ×2 (08:21→19:53)
[2017-05-14] MEDS: aspirin 81mg tab.chew PO SCH (08:21)
[2017-05-14] MEDS: isosorbide mononitrate 30mg tab.SR.24H PO SCH (08:21)
[2017-05-14] MEDS: heparin, porcine 5000 units/ml vial SQ SCH ×2 (08:22→19:55)
[2017-05-14] MEDS: sodium ferric gluc complex inj 125 MG in normal saline 100ml IV soln 100 ML IV SCH (09:21)
[2017-05-14 11:00] VITALS: BP 116/48
[2017-05-14 15:00] VITALS: BP 139/57
[2017-05-14 15:11] LABS: CLARITY,URINE TURBID (Clear); COLOR,URINE YELLOW (Yellow); GLUCOSE, URINE NEGATIVE (Neg); KETONES,URINE TRACE mg/dl (Neg); LEUKOCYTE ESTERASE ,URINE MODERATE (Neg); NITRITES, URINE POSITIVE (Neg); OCCULT BLOOD,URINE LARGE (Neg); PROTEIN,URINE >=300 mg/dl (Neg)
[2017-05-14 15:27] LABS: UA COLLECTION TYPE FOLEY CATH
[2017-05-14 15:45] LABS: BACTERIA,URINE FEW /HPF (Neg); RBC,URINE 50-100 /HPF (0-2); WBC,URINE TNTC /HPF (0-4)
[2017-05-14 15:46] LABS: SQUAMOUS EPITHELIAL CELL,UR NONE SEEN /LPF (FEW)
[2017-05-14 15:47] LABS: YEAST MANY /HPF (NEGATIVE)
[2017-05-14] MEDS ORDERED: fluconazole 100mg tablet PO SCH (18:35)
[2017-05-14 19:00] VITALS: BP 156/60
[2017-05-14] MEDS: Insulin Detemir pen SQ SCH (21:00)
[2017-05-14 22:00] VITALS: BP 147/65
[2017-05-15 02:30] VITALS: BP 130/61
[2017-05-15 06:22] LABS: BASOPHILS % (AUTO) 0 % (0-1); EOSINOPHILS # (AUTO) 0.4 X10'3 (0-0.9); EOSINOPHILS % (AUTO) 4.1 % (0-6); HEMOGLOBIN 7.8 g/dl (14.0-17.9); LYMPHOCYTES % (AUTO) 10.4 % (21-51); MEAN CORPUSCULAR HEMOGLOBIN 26.1 PG (27.0-31.0); MEAN CORPUSCULAR HGB CONC 31.4 % (33.0-36.5); MEAN CORPUSCULAR VOLUME 83.2 FL (78-98); MEAN PLATELET VOLUME 8.5 FL (7.4-10.4); MONOCYTES # (AUTO) 0.9 X10'3 (0-0.9); MONOCYTES % (AUTO) 9.5 % (2-12); NEUTROPHILS # (AUTO) 7.6 X10'3 (1.8-7.7); PLATELET COUNT 287 X10'3 (140-440); RED CELL DISTRIBUTION WIDTH 22.5 % (11.5-14.5)
[2017-05-15 06:39] LABS: ALBUMIN 1.9 G/DL (3.4-5.0); ANION GAP 10 (8-16); BLOOD UREA NITROGEN 41 MG/DL (7-18); BUN/CREATININE RATIO 6.9 (5.4-32.0); CALCIUM 8.3 MG/DL (8.5-10.1); CHLORIDE 101 MMOL/L (99-107); GLUCOSE 121 MG/DL (70-104); POTASSIUM 4.3 MMOL/L (3.5-5.1); SODIUM 138 MMOL/L (135-145); TOTAL CARBON DIOXIDE 27.2 MMOL/L (24-32); eGFR 12 ML/MIN
[2017-05-15 06:55] VITALS: BP 130/61
[2017-05-15 07:11] LABS: PLATELET ESTIMATE NORMAL
[2017-05-15 07:12] LABS: ANISOCYTOSIS 3+; POLYCHROMASIA 1+; TARGET CELLS 1+
[2017-05-15] MEDS: heparin, porcine 5000 units/ml vial SQ SCH (07:58)
[2017-05-15] MEDS: clopidogrel 75mg tablet PO SCH (07:58)
[2017-05-15] MEDS: aspirin 81mg tab.chew PO SCH (07:59)
[2017-05-15] MEDS: cefTRIAXone 1g/NS 100ml IVPB 100 ML IV SCH (08:00)
[2017-05-15] MEDS ORDERED: heparin 1,000 units/ml 10ml inj HE ONE ×2 (08:00)
[2017-05-15] MEDS ORDERED: heparin 1,000unit/ml 10ml vial 10 ML IV ONE (08:00)
[2017-05-15] MEDS: isosorbide mononitrate 30mg tab.SR.24H PO SCH (08:00)
[2017-05-15] MEDS: carVEDilol 3.125mg tablet PO SCH (08:00)
[2017-05-15] MEDS ORDERED: epoetin 20,000 units/ml inj IV ONE (08:00)
[2017-05-15] MEDS ORDERED: heparin 1,000 units/ml 10ml inj IV ONE (08:00)
[2017-05-15] MEDS: sodium ferric gluc complex inj 125 MG in normal saline 100ml IV soln 100 ML IV SCH (08:06)
[2017-05-15 11:00] VITALS: BP 128/57
[2017-05-15 15:00] VITALS: BP 120/69
[2017-05-15 19:17] VITALS: BP 145/55
== END 2017-05-15 19:40 | DRG 871 ==
LOC: ER 22:41 → ED HOLD 05-05 02:54 → PCU 3S 05-05 07:51
PROVIDERS: ADMIT Internal Medicine; ATTEND Internal Medicine
PROC: B543ZZA Ultrasonography of Right Jugular Veins, Guidance (ICD-10-PCS; 2017-05-08)
PROC: 0JH63XZ Insertion of Tunneled Vascular Access Device into Chest Subcutaneous Tissue and Fascia, Percutaneous Approach (ICD-10-PCS; 2017-05-08)
PROC: 02HV33Z Insertion of Infusion Device into Superior Vena Cava, Percutaneous Approach (ICD-10-PCS; 2017-05-08)
PROC: B518ZZA Fluoroscopy of Superior Vena Cava, Guidance (ICD-10-PCS; 2017-05-08)
PROC: 5A1D70Z Performance of Urinary Filtration, Intermittent, Less than 6 Hours Per Day (ICD-10-PCS; principal; 2017-05-09)
PROC: 5A1D70Z Performance of Urinary Filtration, Intermittent, Less than 6 Hours Per Day (ICD-10-PCS; 2017-05-10)
PROC: 5A1D70Z Performance of Urinary Filtration, Intermittent, Less than 6 Hours Per Day (ICD-10-PCS; 2017-05-12)
PROC: 5A1D70Z Performance of Urinary Filtration, Intermittent, Less than 6 Hours Per Day (ICD-10-PCS; 2017-05-15)
DX: A41.9 Sepsis, unspecified organism (principal); J18.9 Pneumonia, unspecified organism; E43 Unspecified severe protein-calorie malnutrition; N17.9 Acute kidney failure, unspecified; I50.23 Acute on chronic systolic (congestive) heart failure; G93.41 Metabolic encephalopathy; R18.8 Other ascites; E11.22 Type 2 diabetes mellitus with diabetic chronic kidney disease; I13.0 Hypertensive heart and chronic kidney disease with heart failure and stage 1 through stage 4 chronic kidney disease, or unspecified chronic kidney disease; N18.4 Chronic kidney disease, stage 4 (severe); B37.49 Other urogenital candidiasis; E87.5 Hyperkalemia; E11.51 Type 2 diabetes mellitus with diabetic peripheral angiopathy without gangrene; D63.8 Anemia in other chronic diseases classified elsewhere; E78.00 Pure hypercholesterolemia, unspecified; E78.5 Hyperlipidemia, unspecified; K74.60 Unspecified cirrhosis of liver; K80.20 Calculus of gallbladder without cholecystitis without obstruction; N50.89 Other specified disorders of the male genital organs; R62.7 Adult failure to thrive; Z66 Do not resuscitate; Z51.5 Encounter for palliative care; Z95.5 Presence of coronary angioplasty implant and graft; Z99.2 Dependence on renal dialysis; Z79.82 Long term (current) use of aspirin; Z79.899 Other long term (current) drug therapy; Z79.02 Long term (current) use of antithrombotics/antiplatelets; Z68.26 Body mass index [BMI] 26.0-26.9, adult
CPT/HCPCS: 36415; 36558; 70450; 70551; 71045; 71250; 74176; 76937; 77001; 78227; 80048; 80053; 80202; 81001; 81003; 82140; 82272; 82728; 82948; 83540; 83550; 83605; 83735; 83880; 84100; 84132; 84145; 84439; 84443; 84484; 85025; 85610; 85730; 86803; 86885; 86900; 86901; 87040; 87070; 87088; 87340; 87502; 87503; 92616; 93005; 93975; 95816; 96361; 96365; 96368; 97161; 97530; 99285; A4620; A6212; A6213; A6219; A6251; A6255; A6266; A6446; A6449; A9537; C1750; C1894; G0257; J0456; J0692; J0696; J0885; J1250; J1450; J1644; J1953; J2001; J2150; J2185; J2250; J2805; J2916; J3010; J3370; J7030

== ENCOUNTER 2017-05-25 10:45 | Inpatient (IN) | payer MEDICARE, MEDICAID ==
[~2017-05-25] VITALS: Ht 175.3 cm; Wt 73.6 kg
[~2017-05-25 10:45] MED LIST changes: +ATOR40TA72; +CEFE2FRO IV; +DOCU-28 PO; +FERR325T28; +FLO0.4C PO; -GLYB2.5T4 PO; +GUAI100L97 PO; -HYDR-569 PO; +INSU100C10 SQ; +ISOS30TA6 PO; +LEVO500T2 PO; -LISI-604 PO; -NIT5P TD; +POLY17PO10 PO; +POTA10TA15; -POTA10TA36 PO; +PREG50CA PO; -SIMV20TA5 PO
[2017-05-25 12:58] LABS: BASOPHILS % (AUTO) 0.6 % (0-1); EOSINOPHILS # (AUTO) 0.2 X10'3 (0-0.9); EOSINOPHILS % (AUTO) 3.1 % (0-6); HEMOGLOBIN 8.4 g/dl (14.0-17.9); LYMPHOCYTES # (AUTO) 0.9 X10'3 (1.1-4.8); LYMPHOCYTES % (AUTO) 13.9 % (21-51); MEAN CORPUSCULAR HEMOGLOBIN 26.3 PG (27.0-31.0); MEAN CORPUSCULAR HGB CONC 32.3 % (33.0-36.5); MEAN CORPUSCULAR VOLUME 81.6 FL (78-98); MEAN PLATELET VOLUME 8.1 FL (7.4-10.4); MONOCYTES # (AUTO) 0.7 X10'3 (0-0.9); MONOCYTES % (AUTO) 10.5 % (2-12); NEUTROPHILS # (AUTO) 4.6 X10'3 (1.8-7.7); NEUTROPHILS % (AUTO) 71.9 % (42-75); PLATELET COUNT 230 X10'3 (140-440); RED BLOOD COUNT 3.19 X10'6 (4.70-6.10); RED CELL DISTRIBUTION WIDTH 19.9 % (11.5-14.5); WHITE BLOOD COUNT 6.4 X10'3 (4.5-11.0)
[2017-05-25 13:12] LABS: ALBUMIN 2.1 G/DL (3.4-5.0); ANION GAP 8 (8-16); BLOOD UREA NITROGEN 48 MG/DL (7-18); BUN/CREATININE RATIO 11.4 (5.4-32.0); CALCIUM 9.1 MG/DL (8.5-10.1); CHLORIDE 96 MMOL/L (99-107); GLUCOSE 190 MG/DL (70-104); POTASSIUM 3.8 MMOL/L (3.5-5.1); SODIUM 136 MMOL/L (135-145); TOTAL CARBON DIOXIDE 31.8 MMOL/L (24-32); eGFR 17 ML/MIN
[2017-05-25 13:25] LABS: ANISOCYTOSIS 2+; HYPOCHROMASIA 1+; MICROCYTOSIS 1+; PLATELET ESTIMATE NORMAL
[2017-05-25 13:26] LABS: POIKILOCYTOSIS FEW; POLYCHROMASIA FEW; TARGET CELLS 1+
[2017-05-25 13:38] LABS: ALANINE AMINOTRANSFERASE 20 U/L (12-78); ALBUMIN/GLOBULIN RATIO 0.3 (1.1-1.5); ALKALINE PHOSPHATASE 228 IU/L (46-116); ASPARTATE AMINO TRANSFERASE 26 U/L (10-37); BILIRUBIN,TOTAL 0.9 MG/DL (0.1-1.0); TOTAL PROTEIN 8.9 G/DL (6.4-8.2)
[2017-05-25 14:40] VITALS: BP 148/77
[2017-05-25] MEDS ORDERED: morphine 4 MG/ML inj SYRINge IV ONE (14:40)
[2017-05-25] MEDS ORDERED: morphine 5 MG/ML injection IV ONE (14:50)
[2017-05-25] MEDS ORDERED: magnesium 4gm in 100ml NS 100 ML IV PRN (15:00)
[2017-05-25] MEDS ORDERED: mag hydrox/Alum hydrox/simeth 30ml oral suspension PO PRN (15:00)
[2017-05-25] MEDS ORDERED: ondansetron/PF 4mg/2ml inj IV PRN (15:00)
[2017-05-25] MEDS ORDERED: magnesium Cl slow-release 64mg tablet PO PRN (15:00)
[2017-05-25] MEDS ORDERED: potassium Cl 20 mEq SR tablet PO PRN ×2 (15:00)
[2017-05-25] MEDS ORDERED: morphine 2 MG/ML inj. syringe IV PRN (15:00)
[2017-05-25] MEDS ORDERED: magnesium 2GM in 50ml NS 50 ML IV PRN (15:00)
[2017-05-25] MEDS ORDERED: potassium Cl 40MEQ/NS 500ml 500 ML IV PRN ×2 (15:00)
[2017-05-25] MEDS ORDERED: morphine 5 MG/ML injection IV PRN (15:02)
[2017-05-25] MEDS: normal saline 1000ml 1,000 ML IV SCH (15:18)
[2017-05-25 18:00] VITALS: BP_SYST 147; BP_SYST 148; BP_DIAS 67; BP_DIAS 70
[2017-05-25] MEDS ORDERED: non-formulary drug (Pregabalin (Lyrica) 1 CAP) PO SCH (20:00)
[2017-05-25] MEDS: docusate sod 100mg capsule PO SCH (20:00)
[2017-05-25] MEDS: pregabalin 25mg capsule PO SCH (21:47)
[2017-05-25] MEDS: carvedilol 6.25mg tablet PO SCH (21:47)
[2017-05-26] VITALS: BP 147/70
[2017-05-26] MEDS: normal saline 1000ml 1,000 ML IV SCH ×3 (03:41→17:45)
[2017-05-26 06:36] LABS: BASOPHILS % (AUTO) 0.1 % (0-1); EOSINOPHILS # (AUTO) 0.1 X10'3 (0-0.9); EOSINOPHILS % (AUTO) 2.3 % (0-6); HEMATOCRIT 25.6 % (42.0-52.0); HEMOGLOBIN 8.3 g/dl (14.0-17.9); LYMPHOCYTES # (AUTO) 1.2 X10'3 (1.1-4.8); LYMPHOCYTES % (AUTO) 18.9 % (21-51); MEAN CORPUSCULAR HEMOGLOBIN 26.4 PG (27.0-31.0); MEAN CORPUSCULAR HGB CONC 32.4 % (33.0-36.5); MEAN CORPUSCULAR VOLUME 81.7 FL (78-98); MEAN PLATELET VOLUME 8.1 FL (7.4-10.4); MONOCYTES # (AUTO) 0.8 X10'3 (0-0.9); MONOCYTES % (AUTO) 13.2 % (2-12); NEUTROPHILS % (AUTO) 65.5 % (42-75); PLATELET COUNT 219 X10'3 (140-440); RED BLOOD COUNT 3.14 X10'6 (4.70-6.10); RED CELL DISTRIBUTION WIDTH 20.5 % (11.5-14.5); WHITE BLOOD COUNT 6.2 X10'3 (4.5-11.0)
[2017-05-26 07:00] VITALS: BP 136/61
[2017-05-26 07:07] LABS: ANION GAP 9 (8-16); BLOOD UREA NITROGEN 56 MG/DL (7-18); BUN/CREATININE RATIO 11.2 (5.4-32.0); CALCIUM 9.2 MG/DL (8.5-10.1); CHLORIDE 99 MMOL/L (99-107); GLUCOSE 133 MG/DL (70-104); POTASSIUM 4.2 MMOL/L (3.5-5.1); SODIUM 138 MMOL/L (135-145); TOTAL CARBON DIOXIDE 30.2 MMOL/L (24-32); eGFR 14 ML/MIN
[2017-05-26] MEDS: K and/or MAG REPLACEMENT MC SCH (07:48)
[2017-05-26] MEDS: isosorbide mononitrate 30mg tab.SR.24H PO SCH (07:54)
[2017-05-26] MEDS: clopidogrel 75mg tablet PO SCH (07:54)
[2017-05-26] MEDS: aspirin 81mg tab.chew PO SCH (07:54)
[2017-05-26] MEDS: carvedilol 6.25mg tablet PO SCH ×2 (07:54→20:42)
[2017-05-26] MEDS: tamsulosin 0.4mg capsule PO SCH (07:55)
[2017-05-26] MEDS: docusate sod 100mg capsule PO SCH ×2 (07:55→20:00)
[2017-05-26] MEDS: ferrous sulfate 325mg tablet PO SCH (07:55)
[2017-05-26] MEDS: atorvastatin 10mg tablet PO SCH (07:55)
[2017-05-26] MEDS: pregabalin 25mg capsule PO SCH ×2 (07:55→20:42)
[2017-05-26] MEDS ORDERED: ASPIRIN PO SCH (08:00)
[2017-05-26] MEDS ORDERED: enoxaparin 40mg/0.4ml syringe SUBCUT SCH (08:00)
[2017-05-26 11:00] VITALS: BP 138/61
[2017-05-26] MEDS ORDERED: vancomycin/NS 1 GM ADD-VANTAGE 250 ML X 1 DOSE IV ONE ×2 (14:05→18:00)
[2017-05-26] MEDS ORDERED: normal saline 1000ml 250 ML IV PRN (14:07)
[2017-05-26] MEDS ORDERED: heparin 1,000unit/ml 10ml vial 10 ML IV ONE (14:07)
[2017-05-26] MEDS ORDERED: albumin (human) 25% 100ml IV 100 ML IV PRN (14:10)
[2017-05-26] MEDS ORDERED: epoetin 20,000 units/ml inj IV ONE (14:10)
[2017-05-26] MEDS ORDERED: heparin 1,000 units/ml 10ml inj HE ONE ×2 (14:15)
[2017-05-26] MEDS ORDERED: vancomycin/NS 1 GM ADD-VANTAGE 250 ML IV PRN (14:30)
[2017-05-26] MEDS: cefepime 1GM/100ML NS ADD-VANTAGE BAG IV SCH ×2 (14:40→20:42)
[2017-05-26 18:00] VITALS: BP 158/75
[2017-05-26] MEDS: HYDROcodone/acetaminophen 5mg/325mg tablet PO PRN (20:41)
[2017-05-27] VITALS: BP 140/66
[2017-05-27] MEDS: HYDROcodone/acetaminophen 5mg/325mg tablet PO PRN ×2 (02:06→20:36)
[2017-05-27] MEDS: VANCOMYCIN LEVEL IV SCH (03:00)
[2017-05-27 05:34] LABS: BASOPHILS % (AUTO) 0.2 % (0-1); EOSINOPHILS # (AUTO) 0.1 X10'3 (0-0.9); EOSINOPHILS % (AUTO) 1.5 % (0-6); HEMATOCRIT 26.2 % (42.0-52.0); HEMOGLOBIN 8.4 g/dl (14.0-17.9); LYMPHOCYTES # (AUTO) 1.1 X10'3 (1.1-4.8); LYMPHOCYTES % (AUTO) 18.7 % (21-51); MEAN CORPUSCULAR HEMOGLOBIN 26.5 PG (27.0-31.0); MEAN CORPUSCULAR VOLUME 82.7 FL (78-98); MEAN PLATELET VOLUME 8.3 FL (7.4-10.4); MONOCYTES # (AUTO) 0.7 X10'3 (0-0.9); MONOCYTES % (AUTO) 11.7 % (2-12); NEUTROPHILS # (AUTO) 4.1 X10'3 (1.8-7.7); NEUTROPHILS % (AUTO) 67.9 % (42-75); PLATELET COUNT 209 X10'3 (140-440); RED BLOOD COUNT 3.17 X10'6 (4.70-6.10); RED CELL DISTRIBUTION WIDTH 20.3 % (11.5-14.5)
[2017-05-27 06:19] LABS: ALBUMIN 1.9 G/DL (3.4-5.0); ANION GAP 8 (8-16); BLOOD UREA NITROGEN 31 MG/DL (7-18); BUN/CREATININE RATIO 8.9 (5.4-32.0); CALCIUM 8.3 MG/DL (8.5-10.1); CHLORIDE 101 MMOL/L (99-107); GLUCOSE 157 MG/DL (70-104); MAGNESIUM 1.7 MG/DL (1.5-2.4); POTASSIUM 4.1 MMOL/L (3.5-5.1); SODIUM 137 MMOL/L (135-145); TOTAL CARBON DIOXIDE 28.2 MMOL/L (24-32); VANCOMYCIN,RANDOM 15.1 UG/ML; eGFR 21 ML/MIN
[2017-05-27 07:11] VITALS: BP 136/69
[2017-05-27] MEDS: ferrous sulfate 325mg tablet PO SCH (07:47)
[2017-05-27] MEDS: tamsulosin 0.4mg capsule PO SCH (07:47)
[2017-05-27] MEDS: clopidogrel 75mg tablet PO SCH (07:48)
[2017-05-27] MEDS: atorvastatin 10mg tablet PO SCH (07:48)
[2017-05-27] MEDS: pregabalin 25mg capsule PO SCH ×2 (07:48→20:22)
[2017-05-27] MEDS: enoxaparin 30mg/0.3ml syringe SUBCUT SCH (07:49)
[2017-05-27] MEDS: aspirin 81mg tab.chew PO SCH (07:49)
[2017-05-27] MEDS: docusate sod 100mg capsule PO SCH ×2 (07:58→20:00)
[2017-05-27] MEDS: isosorbide mononitrate 30mg tab.SR.24H PO SCH (08:00)
[2017-05-27] MEDS: K and/or MAG REPLACEMENT MC SCH (08:00)
[2017-05-27] MEDS: carvedilol 6.25mg tablet PO SCH ×2 (08:00→20:21)
[2017-05-27] MEDS: normal saline 1000ml 1,000 ML IV SCH (08:01)
[2017-05-27] MEDS: cefepime 1GM/100ML NS ADD-VANTAGE BAG IV SCH (08:03)
[2017-05-27 12:16] VITALS: BP 140/65
[2017-05-27] MEDS: lactobacillus rhamnosus 10,000 MMU CELLS/CAPSULE PO SCH (17:06)
[2017-05-27 19:30] VITALS: BP 158/62
[2017-05-27] MEDS: CEFEPIME 1 GM in NORMAL SALINE 100ml IV.SOLN IV SCH (20:21)
[2017-05-28] VITALS: BP 138/73
[2017-05-28] MEDS: normal saline 1000ml 1,000 ML IV SCH (02:19)
[2017-05-28] MEDS: HYDROcodone/acetaminophen 5mg/325mg tablet PO PRN ×3 (02:20→20:13)
[2017-05-28] MEDS: VANCOMYCIN LEVEL IV SCH (03:00)
[2017-05-28 06:03] LABS: BASOPHILS % (AUTO) 0 % (0-1); EOSINOPHILS # (AUTO) 0.2 X10'3 (0-0.9); EOSINOPHILS % (AUTO) 3.5 % (0-6); HEMOGLOBIN 8.7 g/dl (14.0-17.9); LYMPHOCYTES # (AUTO) 0.9 X10'3 (1.1-4.8); LYMPHOCYTES % (AUTO) 12.9 % (21-51); MEAN CORPUSCULAR HEMOGLOBIN 26.6 PG (27.0-31.0); MEAN CORPUSCULAR HGB CONC 32.2 % (33.0-36.5); MEAN CORPUSCULAR VOLUME 82.8 FL (78-98); MEAN PLATELET VOLUME 8.3 FL (7.4-10.4); MONOCYTES # (AUTO) 0.7 X10'3 (0-0.9); MONOCYTES % (AUTO) 10.5 % (2-12); NEUTROPHILS # (AUTO) 5.2 X10'3 (1.8-7.7); NEUTROPHILS % (AUTO) 73.1 % (42-75); PLATELET COUNT 240 X10'3 (140-440); RED BLOOD COUNT 3.25 X10'6 (4.70-6.10); RED CELL DISTRIBUTION WIDTH 21.4 % (11.5-14.5); WHITE BLOOD COUNT 7.1 X10'3 (4.5-11.0)
[2017-05-28 06:35] LABS: ANION GAP 9 (8-16); BLOOD UREA NITROGEN 41 MG/DL (7-18); BUN/CREATININE RATIO 9.5 (5.4-32.0); CALCIUM 8.6 MG/DL (8.5-10.1); CHLORIDE 102 MMOL/L (99-107); GLUCOSE 149 MG/DL (70-104); MAGNESIUM 1.9 MG/DL (1.5-2.4); POTASSIUM 4.4 MMOL/L (3.5-5.1); SODIUM 137 MMOL/L (135-145); TOTAL CARBON DIOXIDE 26.1 MMOL/L (24-32); VANCOMYCIN,RANDOM 12.8 UG/ML; eGFR 17 ML/MIN
[2017-05-28 07:05] VITALS: BP 138/72
[2017-05-28] MEDS: K and/or MAG REPLACEMENT MC SCH (08:00)
[2017-05-28] MEDS: carvedilol 6.25mg tablet PO SCH ×2 (08:00→19:56)
[2017-05-28] MEDS: aspirin 81mg tab.chew PO SCH (08:19)
[2017-05-28] MEDS: clopidogrel 75mg tablet PO SCH (08:19)
[2017-05-28] MEDS: tamsulosin 0.4mg capsule PO SCH (08:19)
[2017-05-28] MEDS: atorvastatin 10mg tablet PO SCH (08:19)
[2017-05-28] MEDS: docusate sod 100mg capsule PO SCH ×2 (08:19→19:55)
[2017-05-28] MEDS: CEFEPIME 1 GM in NORMAL SALINE 100ml IV.SOLN IV SCH (08:19)
[2017-05-28] MEDS: lactobacillus rhamnosus 10,000 MMU CELLS/CAPSULE PO SCH ×2 (08:19→17:30)
[2017-05-28] MEDS: isosorbide mononitrate 30mg tab.SR.24H PO SCH (08:20)
[2017-05-28] MEDS: pregabalin 25mg capsule PO SCH ×2 (08:20→19:55)
[2017-05-28] MEDS: enoxaparin 30mg/0.3ml syringe SUBCUT SCH (08:20)
[2017-05-28] MEDS: ferrous sulfate 325mg tablet PO SCH (08:20)
[2017-05-28] MEDS ORDERED: vancomycin/NS 1 GM ADD-VANTAGE 250 ML IV ONE (08:25)
[2017-05-28 10:50] VITALS: BP 131/61
[2017-05-28 20:00] VITALS: BP 142/72
[2017-05-29] VITALS (27 sets, daily range): BP systolic 112–147; BP diastolic 27–100
[2017-05-29] MEDS: VANCOMYCIN LEVEL IV SCH (02:05)
[2017-05-29 05:32] LABS: INR 1.4 INR; PARTIAL THROMBOPLASTIN TIME 28 SECONDS (22-32); PROTHROMBIN TIME 14.7 SECONDS (9.0-12.0)
[2017-05-29 05:33] LABS: BASOPHILS % (AUTO) 0.1 % (0-1); EOSINOPHILS # (AUTO) 0.3 X10'3 (0-0.9); EOSINOPHILS % (AUTO) 4.3 % (0-6); HEMATOCRIT 25.9 % (42.0-52.0); HEMOGLOBIN 8.4 g/dl (14.0-17.9); LYMPHOCYTES # (AUTO) 0.9 X10'3 (1.1-4.8); LYMPHOCYTES % (AUTO) 13.2 % (21-51); MEAN CORPUSCULAR HEMOGLOBIN 26.9 PG (27.0-31.0); MEAN CORPUSCULAR HGB CONC 32.7 % (33.0-36.5); MEAN CORPUSCULAR VOLUME 82.4 FL (78-98); MEAN PLATELET VOLUME 8.4 FL (7.4-10.4); MONOCYTES # (AUTO) 0.6 X10'3 (0-0.9); MONOCYTES % (AUTO) 8.8 % (2-12); NEUTROPHILS # (AUTO) 5.3 X10'3 (1.8-7.7); NEUTROPHILS % (AUTO) 73.6 % (42-75); PLATELET COUNT 237 X10'3 (140-440); RED BLOOD COUNT 3.14 X10'6 (4.70-6.10); RED CELL DISTRIBUTION WIDTH 21.3 % (11.5-14.5); WHITE BLOOD COUNT 7.1 X10'3 (4.5-11.0)
[2017-05-29 06:05] LABS: ANION GAP 8 (8-16); BLOOD UREA NITROGEN 47 MG/DL (7-18); BUN/CREATININE RATIO 9.4 (5.4-32.0); CALCIUM 8.7 MG/DL (8.5-10.1); CHLORIDE 103 MMOL/L (99-107); GLUCOSE 119 MG/DL (70-104); MAGNESIUM 1.9 MG/DL (1.5-2.4); SODIUM 136 MMOL/L (135-145); TOTAL CARBON DIOXIDE 24.7 MMOL/L (24-32); VANCOMYCIN,RANDOM 23.4 UG/ML; eGFR 14 ML/MIN
[2017-05-29] MEDS: K and/or MAG REPLACEMENT MC SCH (06:57)
[2017-05-29] MEDS: ferrous sulfate 325mg tablet PO SCH (07:54)
[2017-05-29] MEDS: isosorbide mononitrate 30mg tab.SR.24H PO SCH (07:54)
[2017-05-29] MEDS: docusate sod 100mg capsule PO SCH ×2 (07:54→19:27)
[2017-05-29] MEDS: atorvastatin 10mg tablet PO SCH (07:54)
[2017-05-29] MEDS: lactobacillus rhamnosus 10,000 MMU CELLS/CAPSULE PO SCH ×2 (07:54→17:29)
[2017-05-29] MEDS: pregabalin 25mg capsule PO SCH ×2 (07:54→19:27)
[2017-05-29] MEDS: tamsulosin 0.4mg capsule PO SCH (07:57)
[2017-05-29] MEDS: nicotine 7mg patch - 24hr TD SCH (08:00)
[2017-05-29] MEDS: carvedilol 6.25mg tablet PO SCH ×2 (08:00→19:27)
[2017-05-29] MEDS: clopidogrel 75mg tablet PO SCH (08:00)
[2017-05-29] MEDS ORDERED: epoetin 20,000 units/ml inj IV ONE (08:00)
[2017-05-29] MEDS ORDERED: heparin 1,000unit/ml 10ml vial 10 ML IV ONE (08:00)
[2017-05-29] MEDS ORDERED: normal saline 1000ml 250 ML IV PRN (08:00)
[2017-05-29] MEDS ORDERED: heparin 1,000 units/ml 10ml inj HE ONE ×2 (08:00)
[2017-05-29] MEDS: aspirin 81mg tab.chew PO SCH (08:30)
[2017-05-29] MEDS: cefepime 1GM/100ML NS ADD-VANTAGE BAG IV SCH (11:55)
[2017-05-29] MEDS ORDERED: fentaNYL/PF 50MCG/1 ML 2ML syringe ONE ×2 (13:39→14:14)
[2017-05-29] MEDS ORDERED: sevoflurane 250ml liquid IH ONE (13:51)
[2017-05-29] MEDS ORDERED: midazolam 2 mg/2 ml injection ONE (13:54)
[2017-05-29] MEDS ORDERED: LIDOcaine 2% (20mg/ml) 5ml vial ONE (14:21)
[2017-05-29] MEDS ORDERED: propofol inj 20 ML IV ONE (14:21)
[2017-05-29] MEDS ORDERED: rocuronium 10mg/ml inj IV ONE (14:21)
[2017-05-29] MEDS ORDERED: neostigmine methylsulfate 1 MG/ML 10ml vial ONE (14:21)
[2017-05-29] MEDS ORDERED: ondansetron/PF 4mg/2ml inj ONE (14:21)
[2017-05-29] MEDS ORDERED: glycopyrrolate 0.2mg/ml inj ONE (14:21)
[2017-05-29] MEDS: morphine 2 MG/ML inj. syringe IV ONE ×2 (15:05→15:09)
[2017-05-29] MEDS ORDERED: normal saline 1000ml 1,000 ML IV ONE (15:10)
[2017-05-29] MEDS ORDERED: ondansetron/PF 4mg/2ml inj IV PRN (15:10)
[2017-05-29] MEDS: morphine 2 MG/ML inj. syringe IV PRN ×3 (15:25→17:24)
[2017-05-30] VITALS: BP 130/58
[2017-05-30] MEDS: morphine 2 MG/ML inj. syringe IV PRN ×3 (00:04→13:16)
[2017-05-30] MEDS: VANCOMYCIN LEVEL IV SCH (01:42)
[2017-05-30 04:00] VITALS: BP 130/70
[2017-05-30 05:20] LABS: BASOPHILS % (AUTO) 0.4 % (0-1); EOSINOPHILS # (AUTO) 0.3 X10'3 (0-0.9); EOSINOPHILS % (AUTO) 3.1 % (0-6); HEMATOCRIT 24.7 % (42.0-52.0); HEMOGLOBIN 8.2 g/dl (14.0-17.9); LYMPHOCYTES # (AUTO) 1.2 X10'3 (1.1-4.8); LYMPHOCYTES % (AUTO) 13.9 % (21-51); MEAN CORPUSCULAR HEMOGLOBIN 27.1 PG (27.0-31.0); MEAN CORPUSCULAR HGB CONC 33.1 % (33.0-36.5); MEAN CORPUSCULAR VOLUME 82.1 FL (78-98); MEAN PLATELET VOLUME 8.3 FL (7.4-10.4); MONOCYTES # (AUTO) 0.7 X10'3 (0-0.9); MONOCYTES % (AUTO) 7.9 % (2-12); NEUTROPHILS # (AUTO) 6.4 X10'3 (1.8-7.7); NEUTROPHILS % (AUTO) 74.7 % (42-75); PLATELET COUNT 250 X10'3 (140-440); RED BLOOD COUNT 3.01 X10'6 (4.70-6.10); RED CELL DISTRIBUTION WIDTH 21.7 % (11.5-14.5); WHITE BLOOD COUNT 8.5 X10'3 (4.5-11.0)
[2017-05-30 05:54] LABS: ANION GAP 8 (8-16); BLOOD UREA NITROGEN 28 MG/DL (7-18); BUN/CREATININE RATIO 7.6 (5.4-32.0); CALCIUM 8.5 MG/DL (8.5-10.1); CHLORIDE 102 MMOL/L (99-107); GLUCOSE 124 MG/DL (70-104); MAGNESIUM 1.8 MG/DL (1.5-2.4); POTASSIUM 4.8 MMOL/L (3.5-5.1); SODIUM 138 MMOL/L (135-145); TOTAL CARBON DIOXIDE 28.1 MMOL/L (24-32); VANCOMYCIN,RANDOM 18.5 UG/ML; eGFR 20 ML/MIN
[2017-05-30] MEDS: K and/or MAG REPLACEMENT MC SCH (06:48)
[2017-05-30 08:12] VITALS: BP 116/66
[2017-05-30] MEDS: cefepime 1GM/100ML NS ADD-VANTAGE BAG IV SCH (08:43)
[2017-05-30] MEDS: isosorbide mononitrate 30mg tab.SR.24H PO SCH (08:48)
[2017-05-30] MEDS: atorvastatin 10mg tablet PO SCH (08:48)
[2017-05-30] MEDS: carvedilol 6.25mg tablet PO SCH ×2 (08:48→21:24)
[2017-05-30] MEDS: pregabalin 25mg capsule PO SCH ×2 (08:48→21:23)
[2017-05-30] MEDS: docusate sod 100mg capsule PO SCH ×2 (08:48→21:23)
[2017-05-30] MEDS: tamsulosin 0.4mg capsule PO SCH (08:48)
[2017-05-30] MEDS: ferrous sulfate 325mg tablet PO SCH (08:48)
[2017-05-30] MEDS: aspirin 81mg tab.chew PO SCH (08:48)
[2017-05-30] MEDS: clopidogrel 75mg tablet PO SCH (08:48)
[2017-05-30] MEDS: enoxaparin 30mg/0.3ml syringe SUBCUT SCH (08:49)
[2017-05-30] MEDS: lactobacillus rhamnosus 10,000 MMU CELLS/CAPSULE PO SCH ×2 (08:52→17:24)
[2017-05-30] MEDS: nicotine 7mg patch - 24hr TD SCH (08:52)
[2017-05-30] MEDS ORDERED: magnesium hydroxide 30ml (MOM) UD suspension PO ONE (10:00)
[2017-05-30] MEDS ORDERED: morphine 2 MG/ML inj. syringe IV ONE (15:40)
[2017-05-30] MEDS: heparin, porcine 5000 units/ml vial SQ SCH (20:00)
[2017-05-30 20:08] VITALS: BP 122/66
[2017-05-30 20:09] VITALS: BP 128/50
[2017-05-30] MEDS: sennosides/docusate sodium tablet PO SCH (21:23)
[2017-05-31] VITALS: BP 137/63
[2017-05-31] MEDS: VANCOMYCIN LEVEL IV SCH (00:40)
[2017-05-31] MEDS: morphine 2 MG/ML inj. syringe IV PRN ×2 (01:06→08:40)
[2017-05-31 05:53] LABS: MAGNESIUM 1.9 MG/DL (1.5-2.4); VANCOMYCIN,RANDOM 16.8 UG/ML
[2017-05-31 07:00] VITALS: BP_SYST 108; BP_SYST 117; BP_DIAS 54; BP_DIAS 64
[2017-05-31] MEDS: heparin, porcine 5000 units/ml vial SQ SCH ×2 (08:00→21:02)
[2017-05-31] MEDS: K and/or MAG REPLACEMENT MC SCH (08:00)
[2017-05-31] MEDS: cefepime 1GM/100ML NS ADD-VANTAGE BAG IV SCH (08:33)
[2017-05-31] MEDS: aspirin 81mg tab.chew PO SCH (08:34)
[2017-05-31] MEDS: lactobacillus rhamnosus 10,000 MMU CELLS/CAPSULE PO SCH ×2 (08:34→17:30)
[2017-05-31] MEDS: isosorbide mononitrate 30mg tab.SR.24H PO SCH (08:34)
[2017-05-31] MEDS: nicotine 7mg patch - 24hr TD SCH (08:34)
[2017-05-31] MEDS: enoxaparin 30mg/0.3ml syringe SUBCUT SCH (08:34)
[2017-05-31] MEDS: tamsulosin 0.4mg capsule PO SCH (08:34)
[2017-05-31] MEDS: ferrous sulfate 325mg tablet PO SCH (08:34)
[2017-05-31] MEDS: docusate sod 100mg capsule PO SCH ×2 (08:35→21:16)
[2017-05-31] MEDS: atorvastatin 10mg tablet PO SCH (08:35)
[2017-05-31] MEDS: carvedilol 6.25mg tablet PO SCH ×2 (08:35→21:02)
[2017-05-31] MEDS: pregabalin 25mg capsule PO SCH ×2 (08:39→21:00)
[2017-05-31] MEDS: clopidogrel 75mg tablet PO SCH (08:39)
[2017-05-31] MEDS ORDERED: heparin 1,000unit/ml 10ml vial 10 ML IV ONE (09:14)
[2017-05-31] MEDS ORDERED: normal saline 1000ml 250 ML IV PRN (09:14)
[2017-05-31] MEDS ORDERED: heparin 1,000 units/ml 10ml inj HE ONE ×2 (09:20)
[2017-05-31 10:12] LABS: HEMATOCRIT 24.5 % (42.0-52.0); MEAN CORPUSCULAR HEMOGLOBIN 26.9 PG (27.0-31.0); MEAN CORPUSCULAR HGB CONC 32.7 % (33.0-36.5); MEAN CORPUSCULAR VOLUME 82.4 FL (78-98); MEAN PLATELET VOLUME 8.2 FL (7.4-10.4); PLATELET COUNT 245 X10'3 (140-440); RED BLOOD COUNT 2.98 X10'6 (4.70-6.10); RED CELL DISTRIBUTION WIDTH 21.8 % (11.5-14.5); WHITE BLOOD COUNT 9.4 X10'3 (4.5-11.0)
[2017-05-31] MEDS ORDERED: epoetin 20,000 units/ml inj IV ONE (10:45)
[2017-05-31 11:00] VITALS: BP 117/64
[2017-05-31 18:00] VITALS: BP 123/60
[2017-05-31] MEDS: sennosides/docusate sodium tablet PO SCH (21:01)
[2017-05-31] MEDS: HYDROcodone/acetaminophen 5mg/325mg tablet PO PRN (21:01)
[2017-06-01] VITALS: BP 132/58
[2017-06-01] MEDS: VANCOMYCIN LEVEL IV SCH (03:00)
[2017-06-01] MEDS: HYDROcodone/acetaminophen 5mg/325mg tablet PO PRN ×2 (03:06→14:17)
[2017-06-01 06:32] LABS: MAGNESIUM 1.8 MG/DL (1.5-2.4); VANCOMYCIN,RANDOM 12.3 UG/ML
[2017-06-01 07:20] VITALS: BP 116/56
[2017-06-01] MEDS: K and/or MAG REPLACEMENT MC SCH (08:00)
[2017-06-01] MEDS ORDERED: vancomycin/NS 1 GM ADD-VANTAGE 250 ML IV ONE (09:00)
[2017-06-01] MEDS: docusate sod 100mg capsule PO SCH ×2 (10:44→20:00)
[2017-06-01] MEDS: pregabalin 25mg capsule PO SCH ×2 (10:45→20:00)
[2017-06-01] MEDS: clopidogrel 75mg tablet PO SCH (10:45)
[2017-06-01] MEDS: isosorbide mononitrate 30mg tab.SR.24H PO SCH (10:45)
[2017-06-01] MEDS: aspirin 81mg tab.chew PO SCH (10:45)
[2017-06-01] MEDS: tamsulosin 0.4mg capsule PO SCH (10:46)
[2017-06-01] MEDS: carvedilol 6.25mg tablet PO SCH ×2 (10:46→20:00)
[2017-06-01] MEDS: ferrous sulfate 325mg tablet PO SCH (10:46)
[2017-06-01] MEDS: nicotine 7mg patch - 24hr TD SCH (10:48)
[2017-06-01] MEDS: heparin, porcine 5000 units/ml vial SQ SCH ×2 (10:49→20:00)
[2017-06-01] MEDS: cefepime 1GM/100ML NS ADD-VANTAGE BAG IV SCH (10:50)
[2017-06-01] MEDS: atorvastatin 10mg tablet PO SCH (10:51)
[2017-06-01] MEDS: lactobacillus rhamnosus 10,000 MMU CELLS/CAPSULE PO SCH ×2 (10:52→17:44)
[2017-06-01 11:00] VITALS: BP 116/50
[2017-06-01] MEDS ORDERED: morphine 5 MG/ML injection IV PRN (14:52)
[2017-06-01 20:00] VITALS: BP 122/48
[2017-06-01] MEDS: sennosides/docusate sodium tablet PO SCH (20:57)
[2017-06-01 23:40] VITALS: BP 123/46
[2017-06-02] MEDS: VANCOMYCIN LEVEL IV SCH (03:00)
[2017-06-02 03:54] LABS: VANCOMYCIN,RANDOM 22.3 UG/ML
[2017-06-02 06:00] VITALS: BP 127/47
[2017-06-02 07:32] LABS: ALBUMIN 1.9 G/DL (3.4-5.0); ANION GAP 9 (8-16); BLOOD UREA NITROGEN 34 MG/DL (7-18); BUN/CREATININE RATIO 6.8 (5.4-32.0); CALCIUM 8.6 MG/DL (8.5-10.1); CHLORIDE 99 MMOL/L (99-107); CREATININE 4.98 MG/DL (0.60-1.10); GLUCOSE 104 MG/DL (70-104); SODIUM 136 MMOL/L (135-145); TOTAL CARBON DIOXIDE 27.8 MMOL/L (24-32); eGFR 14 ML/MIN
[2017-06-02] MEDS ORDERED: heparin 1,000 units/ml 10ml inj HE ONE ×2 (08:00)
[2017-06-02] MEDS ORDERED: heparin 1,000unit/ml 10ml vial 10 ML IV ONE (08:00)
[2017-06-02] MEDS ORDERED: normal saline 1000ml 250 ML IV PRN (08:00)
[2017-06-02] MEDS: K and/or MAG REPLACEMENT MC SCH (08:00)
[2017-06-02] MEDS ORDERED: epoetin 20,000 units/ml inj IV ONE (08:00)
[2017-06-02] MEDS: ferrous sulfate 325mg tablet PO SCH (09:04)
[2017-06-02] MEDS: isosorbide mononitrate 30mg tab.SR.24H PO SCH (09:04)
[2017-06-02] MEDS: clopidogrel 75mg tablet PO SCH (09:04)
[2017-06-02] MEDS: heparin, porcine 5000 units/ml vial SQ SCH ×2 (09:04→19:06)
[2017-06-02] MEDS: aspirin 81mg tab.chew PO SCH (09:05)
[2017-06-02] MEDS: tamsulosin 0.4mg capsule PO SCH (09:05)
[2017-06-02] MEDS: carvedilol 6.25mg tablet PO SCH ×2 (09:05→19:07)
[2017-06-02] MEDS: atorvastatin 10mg tablet PO SCH (09:05)
[2017-06-02] MEDS: docusate sod 100mg capsule PO SCH ×2 (09:05→19:05)
[2017-06-02] MEDS: pregabalin 25mg capsule PO SCH ×2 (09:05→19:05)
[2017-06-02] MEDS: cefepime 1GM/100ML NS ADD-VANTAGE BAG IV SCH (09:06)
[2017-06-02] MEDS: nicotine 7mg patch - 24hr TD SCH (09:08)
[2017-06-02] MEDS: lactobacillus rhamnosus 10,000 MMU CELLS/CAPSULE PO SCH ×2 (09:12→16:16)
[2017-06-02] MEDS: HYDROcodone/acetaminophen 5mg/325mg tablet PO PRN ×2 (09:13→16:16)
[2017-06-02 10:46] LABS: BASOPHILS % (AUTO) 0.3 % (0-1); EOSINOPHILS # (AUTO) 0.4 X10'3 (0-0.9); EOSINOPHILS % (AUTO) 4.3 % (0-6); HEMATOCRIT 24.9 % (42.0-52.0); HEMOGLOBIN 8.1 g/dl (14.0-17.9); LYMPHOCYTES # (AUTO) 1.2 X10'3 (1.1-4.8); LYMPHOCYTES % (AUTO) 13.5 % (21-51); MEAN CORPUSCULAR HEMOGLOBIN 26.9 PG (27.0-31.0); MEAN CORPUSCULAR HGB CONC 32.5 % (33.0-36.5); MEAN CORPUSCULAR VOLUME 82.8 FL (78-98); MEAN PLATELET VOLUME 8.4 FL (7.4-10.4); MONOCYTES # (AUTO) 0.7 X10'3 (0-0.9); MONOCYTES % (AUTO) 7.4 % (2-12); NEUTROPHILS # (AUTO) 6.6 X10'3 (1.8-7.7); NEUTROPHILS % (AUTO) 74.5 % (42-75); PLATELET COUNT 285 X10'3 (140-440); RED BLOOD COUNT 3.01 X10'6 (4.70-6.10); WHITE BLOOD COUNT 8.9 X10'3 (4.5-11.0)
[2017-06-02 11:28] VITALS: BP 130/70
[2017-06-02 20:00] VITALS: BP 153/54
[2017-06-02] MEDS: sennosides/docusate sodium tablet PO SCH (21:00)
[2017-06-03] VITALS: BP 144/50
[2017-06-03] MEDS: VANCOMYCIN LEVEL IV SCH (03:00)
[2017-06-03 03:38] LABS: ALANINE AMINOTRANSFERASE 24 U/L (12-78); ALBUMIN 1.9 G/DL (3.4-5.0); ALBUMIN/GLOBULIN RATIO 0.3 (1.1-1.5); ALKALINE PHOSPHATASE 184 IU/L (46-116); ANION GAP 7 (8-16); ASPARTATE AMINO TRANSFERASE 43 U/L (10-37); BILIRUBIN,TOTAL 0.7 MG/DL (0.1-1.0); BLOOD UREA NITROGEN 19 MG/DL (7-18); BUN/CREATININE RATIO 5.6 (5.4-32.0); CALCIUM 8.3 MG/DL (8.5-10.1); CHLORIDE 100 MMOL/L (99-107); GLUCOSE 112 MG/DL (70-104); POTASSIUM 4.4 MMOL/L (3.5-5.1); SODIUM 136 MMOL/L (135-145); TOTAL CARBON DIOXIDE 28.7 MMOL/L (24-32); TOTAL PROTEIN 8.1 G/DL (6.4-8.2); VANCOMYCIN,RANDOM 16.2 UG/ML; eGFR 22 ML/MIN
[2017-06-03 05:26] LABS: BASOPHILS % (AUTO) 0.1 % (0-1); EOSINOPHILS # (AUTO) 0.4 X10'3 (0-0.9); EOSINOPHILS % (AUTO) 4.2 % (0-6); HEMATOCRIT 26.7 % (42.0-52.0); HEMOGLOBIN 8.8 g/dl (14.0-17.9); LYMPHOCYTES # (AUTO) 1.1 X10'3 (1.1-4.8); LYMPHOCYTES % (AUTO) 11.6 % (21-51); MEAN CORPUSCULAR HEMOGLOBIN 26.9 PG (27.0-31.0); MEAN CORPUSCULAR VOLUME 81.6 FL (78-98); MEAN PLATELET VOLUME 8.4 FL (7.4-10.4); MONOCYTES # (AUTO) 0.8 X10'3 (0-0.9); MONOCYTES % (AUTO) 8.1 % (2-12); NEUTROPHILS # (AUTO) 7.2 X10'3 (1.8-7.7); PLATELET COUNT 300 X10'3 (140-440); RED BLOOD COUNT 3.27 X10'6 (4.70-6.10); RED CELL DISTRIBUTION WIDTH 22.1 % (11.5-14.5); WHITE BLOOD COUNT 9.5 X10'3 (4.5-11.0)
[2017-06-03] MEDS: K and/or MAG REPLACEMENT MC SCH (08:00)
[2017-06-03 08:03] VITALS: BP 164/64
[2017-06-03] MEDS: cefepime 1GM/100ML NS ADD-VANTAGE BAG IV SCH (09:25)
[2017-06-03] MEDS: lactobacillus rhamnosus 10,000 MMU CELLS/CAPSULE PO SCH ×2 (09:26→16:43)
[2017-06-03] MEDS: nicotine 7mg patch - 24hr TD SCH (09:26)
[2017-06-03] MEDS: heparin, porcine 5000 units/ml vial SQ SCH ×2 (09:26→21:04)
[2017-06-03] MEDS: docusate sod 100mg capsule PO SCH ×2 (09:26→21:03)
[2017-06-03] MEDS: aspirin 81mg tab.chew PO SCH (09:26)
[2017-06-03] MEDS: pregabalin 25mg capsule PO SCH ×2 (09:27→21:03)
[2017-06-03] MEDS: tamsulosin 0.4mg capsule PO SCH (09:27)
[2017-06-03] MEDS: carvedilol 6.25mg tablet PO SCH ×2 (09:27→20:00)
[2017-06-03] MEDS: atorvastatin 10mg tablet PO SCH (09:27)
[2017-06-03] MEDS: HYDROcodone/acetaminophen 5mg/325mg tablet PO PRN ×3 (09:27→21:07)
[2017-06-03] MEDS: isosorbide mononitrate 30mg tab.SR.24H PO SCH (09:27)
[2017-06-03] MEDS: clopidogrel 75mg tablet PO SCH (09:27)
[2017-06-03] MEDS: ferrous sulfate 325mg tablet PO SCH (09:27)
[2017-06-03 11:36] VITALS: BP 143/56
[2017-06-03] MEDS: NUT.TX.GLUC.INTOLER,LAC-FR,REG (BOOST GLUCOSE CONTROL) 237 ML PO SCH ×2 (13:00→18:00)
[2017-06-03 19:00] VITALS: BP 156/53
[2017-06-03] MEDS: sennosides/docusate sodium tablet PO SCH (21:03)
[2017-06-04] VITALS: BP 152/68
[2017-06-04] MEDS: VANCOMYCIN LEVEL IV SCH (03:00)
[2017-06-04 05:12] LABS: BASOPHILS % (AUTO) 0.6 % (0-1); EOSINOPHILS # (AUTO) 0.4 X10'3 (0-0.9); EOSINOPHILS % (AUTO) 4.1 % (0-6); HEMATOCRIT 26.4 % (42.0-52.0); HEMOGLOBIN 8.5 g/dl (14.0-17.9); LYMPHOCYTES # (AUTO) 1.1 X10'3 (1.1-4.8); LYMPHOCYTES % (AUTO) 12.8 % (21-51); MEAN CORPUSCULAR HEMOGLOBIN 26.8 PG (27.0-31.0); MEAN CORPUSCULAR HGB CONC 32.3 % (33.0-36.5); MEAN CORPUSCULAR VOLUME 82.7 FL (78-98); MEAN PLATELET VOLUME 8.2 FL (7.4-10.4); MONOCYTES # (AUTO) 0.7 X10'3 (0-0.9); MONOCYTES % (AUTO) 8.3 % (2-12); NEUTROPHILS # (AUTO) 6.4 X10'3 (1.8-7.7); NEUTROPHILS % (AUTO) 74.2 % (42-75); PLATELET COUNT 301 X10'3 (140-440); RED BLOOD COUNT 3.19 X10'6 (4.70-6.10); RED CELL DISTRIBUTION WIDTH 21.4 % (11.5-14.5); WHITE BLOOD COUNT 8.7 X10'3 (4.5-11.0)
[2017-06-04 05:34] LABS: ALANINE AMINOTRANSFERASE 17 U/L (12-78); ALBUMIN 1.8 G/DL (3.4-5.0); ALBUMIN/GLOBULIN RATIO 0.3 (1.1-1.5); ALKALINE PHOSPHATASE 155 IU/L (46-116); ANION GAP 10 (8-16); ASPARTATE AMINO TRANSFERASE 35 U/L (10-37); BILIRUBIN,TOTAL 0.7 MG/DL (0.1-1.0); BLOOD UREA NITROGEN 30 MG/DL (7-18); BUN/CREATININE RATIO 6.4 (5.4-32.0); CALCIUM 8.6 MG/DL (8.5-10.1); CHLORIDE 99 MMOL/L (99-107); GLUCOSE 126 MG/DL (70-104); POTASSIUM 4.2 MMOL/L (3.5-5.1); SODIUM 137 MMOL/L (135-145); TOTAL CARBON DIOXIDE 27.7 MMOL/L (24-32); TOTAL PROTEIN 7.8 G/DL (6.4-8.2); VANCOMYCIN,RANDOM 15.1 UG/ML; eGFR 15 ML/MIN
[2017-06-04 07:29] VITALS: BP 110/47
[2017-06-04] MEDS: K and/or MAG REPLACEMENT MC SCH (08:00)
[2017-06-04] MEDS: cefepime 1GM/100ML NS ADD-VANTAGE BAG IV SCH (08:31)
[2017-06-04] MEDS: docusate sod 100mg capsule PO SCH ×2 (08:33→21:14)
[2017-06-04] MEDS: tamsulosin 0.4mg capsule PO SCH (08:33)
[2017-06-04] MEDS: ferrous sulfate 325mg tablet PO SCH (08:34)
[2017-06-04] MEDS: atorvastatin 10mg tablet PO SCH (08:34)
[2017-06-04] MEDS: clopidogrel 75mg tablet PO SCH (08:34)
[2017-06-04] MEDS: isosorbide mononitrate 30mg tab.SR.24H PO SCH (08:35)
[2017-06-04] MEDS: lactobacillus rhamnosus 10,000 MMU CELLS/CAPSULE PO SCH ×2 (08:35→17:28)
[2017-06-04] MEDS: aspirin 81mg tab.chew PO SCH (08:35)
[2017-06-04] MEDS: carvedilol 6.25mg tablet PO SCH ×2 (08:35→21:14)
[2017-06-04] MEDS: pregabalin 25mg capsule PO SCH ×2 (08:36→21:14)
[2017-06-04] MEDS: heparin, porcine 5000 units/ml vial SQ SCH ×2 (08:36→21:15)
[2017-06-04] MEDS: nicotine 7mg patch - 24hr TD SCH (08:38)
[2017-06-04] MEDS: HYDROcodone/acetaminophen 5mg/325mg tablet PO PRN ×2 (08:49→17:32)
[2017-06-04] MEDS: NUT.TX.GLUC.INTOLER,LAC-FR,REG (BOOST GLUCOSE CONTROL) 237 ML PO SCH ×3 (08:51→18:06)
[2017-06-04 11:00] VITALS: BP 104/44
[2017-06-04 20:00] VITALS: BP 143/50
[2017-06-04] MEDS: sennosides/docusate sodium tablet PO SCH (21:14)
[2017-06-04] MEDS ORDERED: pantoprazole 40 MG vial IV SCH (21:35)
[2017-06-04 23:00] VITALS: BP 144/58
[2017-06-05] MEDS: VANCOMYCIN LEVEL IV SCH (03:00)
[2017-06-05 05:47] LABS: BASOPHILS # (AUTO) 0.1 X10'3 (0-0.2); BASOPHILS % (AUTO) 0.7 % (0-1); EOSINOPHILS # (AUTO) 0.5 X10'3 (0-0.9); EOSINOPHILS % (AUTO) 5.9 % (0-6); HEMATOCRIT 26.4 % (42.0-52.0); HEMOGLOBIN 8.5 g/dl (14.0-17.9); LYMPHOCYTES # (AUTO) 1.1 X10'3 (1.1-4.8); LYMPHOCYTES % (AUTO) 13.2 % (21-51); MEAN CORPUSCULAR HEMOGLOBIN 26.8 PG (27.0-31.0); MEAN CORPUSCULAR HGB CONC 32.3 % (33.0-36.5); MEAN CORPUSCULAR VOLUME 83.1 FL (78-98); MEAN PLATELET VOLUME 8.2 FL (7.4-10.4); MONOCYTES # (AUTO) 0.8 X10'3 (0-0.9); MONOCYTES % (AUTO) 9.7 % (2-12); NEUTROPHILS # (AUTO) 5.9 X10'3 (1.8-7.7); NEUTROPHILS % (AUTO) 70.5 % (42-75); PLATELET COUNT 314 X10'3 (140-440); RED BLOOD COUNT 3.17 X10'6 (4.70-6.10); RED CELL DISTRIBUTION WIDTH 21.8 % (11.5-14.5); WHITE BLOOD COUNT 8.4 X10'3 (4.5-11.0)
[2017-06-05 06:01] LABS: ALANINE AMINOTRANSFERASE 16 U/L (12-78); ALBUMIN 1.8 G/DL (3.4-5.0); ALBUMIN/GLOBULIN RATIO 0.3 (1.1-1.5); ALKALINE PHOSPHATASE 145 IU/L (46-116); ANION GAP 9 (8-16); ASPARTATE AMINO TRANSFERASE 28 U/L (10-37); BILIRUBIN,TOTAL 0.6 MG/DL (0.1-1.0); BLOOD UREA NITROGEN 42 MG/DL (7-18); BUN/CREATININE RATIO 7.3 (5.4-32.0); CALCIUM 8.4 MG/DL (8.5-10.1); CHLORIDE 98 MMOL/L (99-107); CREATININE 5.76 MG/DL (0.60-1.10); GLUCOSE 104 MG/DL (70-104); POTASSIUM 4.5 MMOL/L (3.5-5.1); SODIUM 134 MMOL/L (135-145); TOTAL CARBON DIOXIDE 26.9 MMOL/L (24-32); TOTAL PROTEIN 7.8 G/DL (6.4-8.2); VANCOMYCIN,RANDOM 13.7 UG/ML; eGFR 12 ML/MIN
[2017-06-05 07:48] VITALS: BP 140/90
[2017-06-05] MEDS: K and/or MAG REPLACEMENT MC SCH (08:00)
[2017-06-05] MEDS ORDERED: heparin 1,000unit/ml 10ml vial 10 ML IV ONE (08:00)
[2017-06-05] MEDS: carvedilol 6.25mg tablet PO SCH ×2 (08:00→21:41)
[2017-06-05] MEDS ORDERED: epoetin 20,000 units/ml inj IV ONE (08:00)
[2017-06-05] MEDS ORDERED: normal saline 1000ml 250 ML IV PRN (08:00)
[2017-06-05] MEDS ORDERED: heparin 1,000 units/ml 10ml inj HE ONE ×2 (08:00)
[2017-06-05] MEDS: NUT.TX.GLUC.INTOLER,LAC-FR,REG (BOOST GLUCOSE CONTROL) 237 ML PO SCH ×3 (08:00→18:11)
[2017-06-05] MEDS ORDERED: vancomycin/NS 1 GM ADD-VANTAGE 250 ML IV ONE (09:00)
[2017-06-05] MEDS: atorvastatin 10mg tablet PO SCH (09:24)
[2017-06-05] MEDS: docusate sod 100mg capsule PO SCH ×2 (09:24→21:42)
[2017-06-05] MEDS: isosorbide mononitrate 30mg tab.SR.24H PO SCH (09:24)
[2017-06-05] MEDS: aspirin 81mg tab.chew PO SCH (09:25)
[2017-06-05] MEDS: tamsulosin 0.4mg capsule PO SCH (09:25)
[2017-06-05] MEDS: pantoprazole 40mg Tablet.DR PO SCH (09:26)
[2017-06-05] MEDS: ferrous sulfate 325mg tablet PO SCH (09:26)
[2017-06-05] MEDS: lactobacillus rhamnosus 10,000 MMU CELLS/CAPSULE PO SCH ×2 (09:26→17:34)
[2017-06-05] MEDS: pregabalin 25mg capsule PO SCH ×2 (09:27→21:41)
[2017-06-05] MEDS: clopidogrel 75mg tablet PO SCH (09:27)
[2017-06-05] MEDS: heparin, porcine 5000 units/ml vial SQ SCH ×2 (09:28→21:42)
[2017-06-05] MEDS: nicotine 7mg patch - 24hr TD SCH (09:28)
[2017-06-05 13:14] VITALS: BP 131/59
[2017-06-05] MEDS: HYDROcodone/acetaminophen 5mg/325mg tablet PO PRN (13:34)
[2017-06-05] MEDS: cefepime 1GM/100ML NS ADD-VANTAGE BAG IV SCH (13:45)
[2017-06-05 20:00] VITALS: BP 153/63
[2017-06-05] MEDS: sennosides/docusate sodium tablet PO SCH (21:42)
[2017-06-06] VITALS: BP 158/59
[2017-06-06] MEDS: VANCOMYCIN LEVEL IV SCH (03:00)
[2017-06-06] MEDS: K and/or MAG REPLACEMENT MC SCH (08:00)
[2017-06-06] MEDS: NUT.TX.GLUC.INTOLER,LAC-FR,REG (BOOST GLUCOSE CONTROL) 237 ML PO SCH ×3 (08:43→21:28)
[2017-06-06] MEDS: cefepime 1GM/100ML NS ADD-VANTAGE BAG IV SCH (08:49)
[2017-06-06] MEDS: carvedilol 6.25mg tablet PO SCH ×2 (08:49→21:26)
[2017-06-06] MEDS: aspirin 81mg tab.chew PO SCH (08:49)
[2017-06-06] MEDS: ferrous sulfate 325mg tablet PO SCH (08:49)
[2017-06-06] MEDS: pregabalin 25mg capsule PO SCH ×2 (08:49→21:26)
[2017-06-06] MEDS: atorvastatin 10mg tablet PO SCH (08:49)
[2017-06-06] MEDS: clopidogrel 75mg tablet PO SCH (08:49)
[2017-06-06] MEDS: isosorbide mononitrate 30mg tab.SR.24H PO SCH (08:49)
[2017-06-06] MEDS: heparin, porcine 5000 units/ml vial SQ SCH ×2 (08:49→21:26)
[2017-06-06] MEDS: tamsulosin 0.4mg capsule PO SCH (08:49)
[2017-06-06] MEDS: docusate sod 100mg capsule PO SCH ×2 (08:49→21:28)
[2017-06-06] MEDS: pantoprazole 40mg Tablet.DR PO SCH (08:51)
[2017-06-06] MEDS: lactobacillus rhamnosus 10,000 MMU CELLS/CAPSULE PO SCH ×2 (08:51→17:28)
[2017-06-06] MEDS: nicotine 7mg patch - 24hr TD SCH (08:52)
[2017-06-06] MEDS: HYDROcodone/acetaminophen 5mg/325mg tablet PO PRN (08:52)
[2017-06-06 09:45] VITALS: BP 150/57
[2017-06-06 11:30] VITALS: BP 145/50
[2017-06-06 15:23] LABS: HBSAG SCREEN Negative (Negative)
[2017-06-06 20:00] VITALS: BP 155/55
[2017-06-06] MEDS: sennosides/docusate sodium tablet PO SCH (21:26)
[2017-06-07] VITALS: BP 149/59
[2017-06-07] MEDS: VANCOMYCIN LEVEL IV SCH (03:00)
[2017-06-07 07:56] VITALS: BP 152/61
[2017-06-07] MEDS: carvedilol 6.25mg tablet PO SCH ×2 (08:00→20:08)
[2017-06-07] MEDS: K and/or MAG REPLACEMENT MC SCH (08:00)
[2017-06-07] MEDS: nicotine 7mg patch - 24hr TD SCH (08:47)
[2017-06-07] MEDS: cefepime 1GM/100ML NS ADD-VANTAGE BAG IV SCH (08:47)
[2017-06-07] MEDS: aspirin 81mg tab.chew PO SCH (08:50)
[2017-06-07] MEDS: heparin, porcine 5000 units/ml vial SQ SCH ×2 (08:50→20:06)
[2017-06-07] MEDS: tamsulosin 0.4mg capsule PO SCH (08:50)
[2017-06-07] MEDS: clopidogrel 75mg tablet PO SCH (08:50)
[2017-06-07] MEDS: isosorbide mononitrate 30mg tab.SR.24H PO SCH (08:50)
[2017-06-07] MEDS: HYDROcodone/acetaminophen 5mg/325mg tablet PO PRN ×2 (08:50→16:34)
[2017-06-07] MEDS: NUT.TX.GLUC.INTOLER,LAC-FR,REG (BOOST GLUCOSE CONTROL) 237 ML PO SCH ×3 (08:51→18:00)
[2017-06-07] MEDS: pregabalin 25mg capsule PO SCH ×2 (08:51→20:07)
[2017-06-07] MEDS: ferrous sulfate 325mg tablet PO SCH (08:51)
[2017-06-07] MEDS: docusate sod 100mg capsule PO SCH ×2 (08:51→20:08)
[2017-06-07] MEDS: atorvastatin 10mg tablet PO SCH (08:51)
[2017-06-07] MEDS: pantoprazole 40mg Tablet.DR PO SCH (08:52)
[2017-06-07] MEDS: lactobacillus rhamnosus 10,000 MMU CELLS/CAPSULE PO SCH ×2 (08:52→16:29)
[2017-06-07] MEDS ORDERED: normal saline 1000ml 250 ML IV PRN (09:48)
[2017-06-07] MEDS ORDERED: heparin 1,000unit/ml 10ml vial 10 ML IV ONE (09:48)
[2017-06-07] MEDS ORDERED: epoetin 20,000 units/ml inj IV ONE (09:50)
[2017-06-07] MEDS ORDERED: heparin 1,000 units/ml 10ml inj HE ONE ×2 (09:55)
[2017-06-07 11:06] LABS: FERRITIN 560 NG/ML (26-388)
[2017-06-07 11:12] LABS: HEMATOCRIT 24.3 % (42.0-52.0); HEMOGLOBIN 7.9 g/dl (14.0-17.9); MEAN CORPUSCULAR HEMOGLOBIN 26.6 PG (27.0-31.0); MEAN CORPUSCULAR HGB CONC 32.6 % (33.0-36.5); MEAN CORPUSCULAR VOLUME 81.6 FL (78-98); MEAN PLATELET VOLUME 8.1 FL (7.4-10.4); PLATELET COUNT 303 X10'3 (140-440); RED BLOOD COUNT 2.98 X10'6 (4.70-6.10); RED CELL DISTRIBUTION WIDTH 21.1 % (11.5-14.5); WHITE BLOOD COUNT 8.8 X10'3 (4.5-11.0)
[2017-06-07 11:23] LABS: % IRON SATURATION 17 % (11-46); IRON 28 UG/DL (53-167); TOTAL IRON BINDING CAPACITY 168 UG/DL (259-388)
[2017-06-07 12:14] VITALS: BP 125/58
[2017-06-07 20:00] VITALS: BP 138/64
[2017-06-07] MEDS: sennosides/docusate sodium tablet PO SCH (20:07)
[2017-06-08] VITALS: BP 132/70
[2017-06-08] MEDS: VANCOMYCIN LEVEL IV SCH (03:00)
[2017-06-08 05:29] LABS: BASOPHILS # (AUTO) 0.1 X10'3 (0-0.2); BASOPHILS % (AUTO) 0.7 % (0-1); EOSINOPHILS # (AUTO) 0.5 X10'3 (0-0.9); EOSINOPHILS % (AUTO) 5.6 % (0-6); HEMATOCRIT 29.6 % (42.0-52.0); HEMOGLOBIN 9.7 g/dl (14.0-17.9); LYMPHOCYTES # (AUTO) 1.2 X10'3 (1.1-4.8); LYMPHOCYTES % (AUTO) 13.7 % (21-51); MEAN CORPUSCULAR HEMOGLOBIN 27.2 PG (27.0-31.0); MEAN CORPUSCULAR HGB CONC 32.8 % (33.0-36.5); MEAN CORPUSCULAR VOLUME 82.8 FL (78-98); MEAN PLATELET VOLUME 8.5 FL (7.4-10.4); MONOCYTES % (AUTO) 11.2 % (2-12); NEUTROPHILS # (AUTO) 6.2 X10'3 (1.8-7.7); NEUTROPHILS % (AUTO) 68.8 % (42-75); PLATELET COUNT 325 X10'3 (140-440); RED BLOOD COUNT 3.58 X10'6 (4.70-6.10)
[2017-06-08 05:57] LABS: ALBUMIN 1.8 G/DL (3.4-5.0); ANION GAP 7 (8-16); BLOOD UREA NITROGEN 24 MG/DL (7-18); BUN/CREATININE RATIO 6.8 (5.4-32.0); CALCIUM 8.7 MG/DL (8.5-10.1); CHLORIDE 99 MMOL/L (99-107); CREATININE 3.55 MG/DL (0.60-1.10); GLUCOSE 116 MG/DL (70-104); POTASSIUM 4.4 MMOL/L (3.5-5.1); SODIUM 136 MMOL/L (135-145); VANCOMYCIN,RANDOM 13.6 UG/ML; eGFR 21 ML/MIN
[2017-06-08] MEDS: pregabalin 25mg capsule PO SCH ×2 (08:00→21:43)
[2017-06-08] MEDS: K and/or MAG REPLACEMENT MC SCH (08:00)
[2017-06-08] MEDS: docusate sod 100mg capsule PO SCH ×2 (08:00→21:44)
[2017-06-08 08:03] VITALS: BP 158/55
[2017-06-08] MEDS: lactobacillus rhamnosus 10,000 MMU CELLS/CAPSULE PO SCH ×2 (09:43→17:03)
[2017-06-08] MEDS: NUT.TX.GLUC.INTOLER,LAC-FR,REG (BOOST GLUCOSE CONTROL) 237 ML PO SCH ×3 (09:44→18:01)
[2017-06-08] MEDS: pantoprazole 40mg Tablet.DR PO SCH (09:44)
[2017-06-08] MEDS: carvedilol 6.25mg tablet PO SCH ×2 (09:45→21:43)
[2017-06-08] MEDS: ferrous sulfate 325mg tablet PO SCH (09:45)
[2017-06-08] MEDS: isosorbide mononitrate 30mg tab.SR.24H PO SCH (09:48)
[2017-06-08] MEDS: tamsulosin 0.4mg capsule PO SCH (09:48)
[2017-06-08] MEDS: clopidogrel 75mg tablet PO SCH (09:48)
[2017-06-08] MEDS: atorvastatin 10mg tablet PO SCH (09:48)
[2017-06-08] MEDS: heparin, porcine 5000 units/ml vial SQ SCH (09:49)
[2017-06-08] MEDS ORDERED: vancomycin/NS 1 GM ADD-VANTAGE 250 ML IV ONE (09:55)
[2017-06-08] MEDS: aspirin 81mg tab.chew PO SCH (10:02)
[2017-06-08] MEDS: nicotine 7mg patch - 24hr TD SCH (10:38)
[2017-06-08] MEDS: cefepime 1GM/100ML NS ADD-VANTAGE BAG IV SCH (10:40)
[2017-06-08 11:30] VITALS: BP 129/60
[2017-06-08 12:34] VITALS: BP 129/60
[2017-06-08 20:00] VITALS: BP 151/56
[2017-06-08] MEDS: sennosides/docusate sodium tablet PO SCH (21:43)
[2017-06-08] MEDS: HYDROcodone/acetaminophen 5mg/325mg tablet PO PRN (21:43)
[2017-06-09] VITALS: BP 146/55
[2017-06-09] MEDS: heparin, porcine 5000 units/ml vial SQ SCH ×3 (00:20→23:55)
[2017-06-09] MEDS: VANCOMYCIN LEVEL IV SCH (03:00)
[2017-06-09 05:54] LABS: BASOPHILS # (AUTO) 0.1 X10'3 (0-0.2); BASOPHILS % (AUTO) 1.4 % (0-1); EOSINOPHILS # (AUTO) 0.6 X10'3 (0-0.9); EOSINOPHILS % (AUTO) 7.5 % (0-6); HEMATOCRIT 27.2 % (42.0-52.0); HEMOGLOBIN 8.7 g/dl (14.0-17.9); LYMPHOCYTES # (AUTO) 1.2 X10'3 (1.1-4.8); LYMPHOCYTES % (AUTO) 16.9 % (21-51); MEAN CORPUSCULAR HEMOGLOBIN 26.3 PG (27.0-31.0); MEAN CORPUSCULAR VOLUME 82.2 FL (78-98); MEAN PLATELET VOLUME 8.1 FL (7.4-10.4); MONOCYTES # (AUTO) 0.9 X10'3 (0-0.9); MONOCYTES % (AUTO) 12.7 % (2-12); NEUTROPHILS # (AUTO) 4.5 X10'3 (1.8-7.7); NEUTROPHILS % (AUTO) 61.5 % (42-75); PLATELET COUNT 295 X10'3 (140-440); RED BLOOD COUNT 3.31 X10'6 (4.70-6.10); RED CELL DISTRIBUTION WIDTH 20.9 % (11.5-14.5); WHITE BLOOD COUNT 7.3 X10'3 (4.5-11.0)
[2017-06-09 06:19] LABS: ALBUMIN 1.7 G/DL (3.4-5.0); ANION GAP 9 (8-16); BLOOD UREA NITROGEN 39 MG/DL (7-18); BUN/CREATININE RATIO 8.2 (5.4-32.0); CALCIUM 8.8 MG/DL (8.5-10.1); CHLORIDE 99 MMOL/L (99-107); CREATININE 4.78 MG/DL (0.60-1.10); GLUCOSE 109 MG/DL (70-104); POTASSIUM 4.6 MMOL/L (3.5-5.1); SODIUM 136 MMOL/L (135-145); VANCOMYCIN,RANDOM 22.5 UG/ML; eGFR 15 ML/MIN
[2017-06-09 07:00] VITALS: BP 160/70
[2017-06-09] MEDS: K and/or MAG REPLACEMENT MC SCH (08:00)
[2017-06-09] MEDS: NUT.TX.GLUC.INTOLER,LAC-FR,REG (BOOST GLUCOSE CONTROL) 237 ML PO SCH ×4 (08:00→18:00)
[2017-06-09] MEDS ORDERED: heparin 1,000unit/ml 10ml vial 10 ML IV ONE (10:29)
[2017-06-09] MEDS ORDERED: normal saline 1000ml 250 ML IV PRN (10:29)
[2017-06-09] MEDS ORDERED: epoetin 20,000 units/ml inj IV ONE (10:30)
[2017-06-09] MEDS ORDERED: heparin 1,000 units/ml 10ml inj IV ONE (10:30)
[2017-06-09] MEDS ORDERED: heparin 1,000 units/ml 10ml inj HE ONE ×2 (10:35)
[2017-06-09] MEDS: nicotine 7mg patch - 24hr TD SCH (10:38)
[2017-06-09] MEDS: tamsulosin 0.4mg capsule PO SCH (10:41)
[2017-06-09] MEDS: HYDROcodone/acetaminophen 5mg/325mg tablet PO PRN ×3 (10:41→23:55)
[2017-06-09] MEDS: isosorbide mononitrate 30mg tab.SR.24H PO SCH (10:42)
[2017-06-09] MEDS: atorvastatin 10mg tablet PO SCH (10:42)
[2017-06-09] MEDS: clopidogrel 75mg tablet PO SCH (10:43)
[2017-06-09] MEDS: docusate sod 100mg capsule PO SCH ×2 (10:43→23:56)
[2017-06-09] MEDS: carvedilol 6.25mg tablet PO SCH ×2 (10:43→20:00)
[2017-06-09] MEDS: aspirin 81mg tab.chew PO SCH (10:43)
[2017-06-09] MEDS: ferrous sulfate 325mg tablet PO SCH (10:44)
[2017-06-09] MEDS: pregabalin 25mg capsule PO SCH ×2 (10:45→23:55)
[2017-06-09] MEDS: pantoprazole 40mg Tablet.DR PO SCH (10:45)
[2017-06-09] MEDS: cefepime 1GM/100ML NS ADD-VANTAGE BAG IV SCH (10:45)
[2017-06-09] MEDS: lactobacillus rhamnosus 10,000 MMU CELLS/CAPSULE PO SCH ×2 (10:46→16:58)
[2017-06-09 11:36] VITALS: BP 139/56
[2017-06-09 20:00] VITALS: BP 153/54
[2017-06-09] MEDS: sennosides/docusate sodium tablet PO SCH (23:55)
[2017-06-10] VITALS: BP 119/40
[2017-06-10] MEDS: VANCOMYCIN LEVEL IV SCH (03:00)
[2017-06-10 03:39] LABS: BASOPHILS % (AUTO) 0.5 % (0-1); EOSINOPHILS # (AUTO) 0.5 X10'3 (0-0.9); EOSINOPHILS % (AUTO) 6.6 % (0-6); HEMATOCRIT 27.7 % (42.0-52.0); HEMOGLOBIN 8.8 g/dl (14.0-17.9); LYMPHOCYTES % (AUTO) 13.8 % (21-51); MEAN CORPUSCULAR HEMOGLOBIN 26.8 PG (27.0-31.0); MEAN CORPUSCULAR HGB CONC 31.9 % (33.0-36.5); MEAN CORPUSCULAR VOLUME 83.9 FL (78-98); MEAN PLATELET VOLUME 8.4 FL (7.4-10.4); MONOCYTES # (AUTO) 0.9 X10'3 (0-0.9); MONOCYTES % (AUTO) 13.2 % (2-12); NEUTROPHILS # (AUTO) 4.7 X10'3 (1.8-7.7); NEUTROPHILS % (AUTO) 65.9 % (42-75); PLATELET COUNT 305 X10'3 (140-440); RED CELL DISTRIBUTION WIDTH 20.7 % (11.5-14.5); WHITE BLOOD COUNT 7.1 X10'3 (4.5-11.0)
[2017-06-10 03:50] LABS: ALBUMIN 1.9 G/DL (3.4-5.0); ANION GAP 8 (8-16); BLOOD UREA NITROGEN 23 MG/DL (7-18); BUN/CREATININE RATIO 7.1 (5.4-32.0); CALCIUM 8.3 MG/DL (8.5-10.1); CHLORIDE 98 MMOL/L (99-107); CREATININE 3.22 MG/DL (0.60-1.10); GLUCOSE 138 MG/DL (70-104); POTASSIUM 4.2 MMOL/L (3.5-5.1); SODIUM 136 MMOL/L (135-145); TOTAL CARBON DIOXIDE 30.5 MMOL/L (24-32); VANCOMYCIN,RANDOM 17.4 UG/ML; eGFR 23 ML/MIN
[2017-06-10 07:23] VITALS: BP 103/50
[2017-06-10] MEDS: carvedilol 6.25mg tablet PO SCH ×2 (08:00→21:17)
[2017-06-10] MEDS: NUT.TX.GLUC.INTOLER,LAC-FR,REG (BOOST GLUCOSE CONTROL) 237 ML PO SCH ×3 (08:00→18:00)
[2017-06-10] MEDS: K and/or MAG REPLACEMENT MC SCH (08:00)
[2017-06-10] MEDS: cefepime 1GM/100ML NS ADD-VANTAGE BAG IV SCH (09:07)
[2017-06-10] MEDS: pregabalin 25mg capsule PO SCH ×2 (09:15→21:18)
[2017-06-10] MEDS: docusate sod 100mg capsule PO SCH ×2 (09:15→20:00)
[2017-06-10] MEDS: atorvastatin 10mg tablet PO SCH (09:15)
[2017-06-10] MEDS: clopidogrel 75mg tablet PO SCH (09:16)
[2017-06-10] MEDS: pantoprazole 40mg Tablet.DR PO SCH (09:16)
[2017-06-10] MEDS: tamsulosin 0.4mg capsule PO SCH (09:16)
[2017-06-10] MEDS: aspirin 81mg tab.chew PO SCH (09:16)
[2017-06-10] MEDS: lactobacillus rhamnosus 10,000 MMU CELLS/CAPSULE PO SCH ×2 (09:17→17:41)
[2017-06-10] MEDS: isosorbide mononitrate 30mg tab.SR.24H PO SCH (09:17)
[2017-06-10] MEDS: ferrous sulfate 325mg tablet PO SCH (09:17)
[2017-06-10] MEDS: heparin, porcine 5000 units/ml vial SQ SCH ×2 (09:18→21:18)
[2017-06-10] MEDS: nicotine 7mg patch - 24hr TD SCH (09:18)
[2017-06-10] MEDS: HYDROcodone/acetaminophen 5mg/325mg tablet PO PRN ×3 (09:19→17:42)
[2017-06-10 11:00] VITALS: BP 106/44
[2017-06-10 18:00] VITALS: BP 109/46
[2017-06-10] MEDS: sennosides/docusate sodium tablet PO SCH (21:17)
[2017-06-10 23:00] VITALS: BP 126/58
[2017-06-11] MEDS: VANCOMYCIN LEVEL IV SCH (03:00)
[2017-06-11 05:08] LABS: BASOPHILS # (AUTO) 0.2 X10'3 (0-0.2); BASOPHILS % (AUTO) 2.3 % (0-1); EOSINOPHILS # (AUTO) 0.5 X10'3 (0-0.9); EOSINOPHILS % (AUTO) 5.7 % (0-6); HEMATOCRIT 28.7 % (42.0-52.0); HEMOGLOBIN 9.1 g/dl (14.0-17.9); LYMPHOCYTES # (AUTO) 1.2 X10'3 (1.1-4.8); LYMPHOCYTES % (AUTO) 14.4 % (21-51); MEAN CORPUSCULAR HEMOGLOBIN 26.4 PG (27.0-31.0); MEAN CORPUSCULAR HGB CONC 31.9 % (33.0-36.5); MEAN CORPUSCULAR VOLUME 82.9 FL (78-98); MEAN PLATELET VOLUME 8.6 FL (7.4-10.4); MONOCYTES % (AUTO) 12.1 % (2-12); NEUTROPHILS # (AUTO) 5.2 X10'3 (1.8-7.7); NEUTROPHILS % (AUTO) 65.5 % (42-75); PLATELET COUNT 306 X10'3 (140-440); RED BLOOD COUNT 3.46 X10'6 (4.70-6.10); RED CELL DISTRIBUTION WIDTH 20.8 % (11.5-14.5)
[2017-06-11 05:35] LABS: ALBUMIN 1.9 G/DL (3.4-5.0); ANION GAP 7 (8-16); BLOOD UREA NITROGEN 37 MG/DL (7-18); BUN/CREATININE RATIO 7.9 (5.4-32.0); CALCIUM 8.9 MG/DL (8.5-10.1); CHLORIDE 97 MMOL/L (99-107); CREATININE 4.69 MG/DL (0.60-1.10); GLUCOSE 101 MG/DL (70-104); SODIUM 133 MMOL/L (135-145); TOTAL CARBON DIOXIDE 29.2 MMOL/L (24-32); VANCOMYCIN,RANDOM 16.4 UG/ML; eGFR 15 ML/MIN
[2017-06-11 05:36] LABS: POTASSIUM 5.4 MMOL/L (3.5-5.1)
[2017-06-11 07:30] VITALS: BP 130/62
[2017-06-11] MEDS: K and/or MAG REPLACEMENT MC SCH (08:00)
[2017-06-11] MEDS: NUT.TX.GLUC.INTOLER,LAC-FR,REG (BOOST GLUCOSE CONTROL) 237 ML PO SCH ×3 (09:35→18:47)
[2017-06-11] MEDS: lactobacillus rhamnosus 10,000 MMU CELLS/CAPSULE PO SCH ×2 (09:36→17:05)
[2017-06-11] MEDS: pantoprazole 40mg Tablet.DR PO SCH (09:36)
[2017-06-11] MEDS: cefepime 1GM/100ML NS ADD-VANTAGE BAG IV SCH (09:37)
[2017-06-11] MEDS: docusate sod 100mg capsule PO SCH ×2 (09:37→20:00)
[2017-06-11] MEDS: carvedilol 6.25mg tablet PO SCH ×2 (09:38→21:27)
[2017-06-11] MEDS: ferrous sulfate 325mg tablet PO SCH (09:38)
[2017-06-11] MEDS: atorvastatin 10mg tablet PO SCH (09:39)
[2017-06-11] MEDS: clopidogrel 75mg tablet PO SCH (09:39)
[2017-06-11] MEDS: tamsulosin 0.4mg capsule PO SCH (09:39)
[2017-06-11] MEDS: isosorbide mononitrate 30mg tab.SR.24H PO SCH (09:39)
[2017-06-11] MEDS: heparin, porcine 5000 units/ml vial SQ SCH (09:40)
[2017-06-11] MEDS: pregabalin 25mg capsule PO SCH ×2 (09:40→21:27)
[2017-06-11] MEDS: nicotine 7mg patch - 24hr TD SCH (09:47)
[2017-06-11] MEDS: aspirin 81mg tab.chew PO SCH (09:54)
[2017-06-11 11:53] VITALS: BP 123/53
[2017-06-11] MEDS: HYDROcodone/acetaminophen 5mg/325mg tablet PO PRN (14:52)
[2017-06-11 19:00] VITALS: BP 124/53
[2017-06-11] MEDS: sennosides/docusate sodium tablet PO SCH (21:00)
[2017-06-12] VITALS: BP 127/62
[2017-06-12] MEDS: VANCOMYCIN LEVEL IV SCH (03:00)
[2017-06-12 05:23] LABS: BASOPHILS % (AUTO) 0.4 % (0-1); EOSINOPHILS # (AUTO) 0.3 X10'3 (0-0.9); EOSINOPHILS % (AUTO) 3.9 % (0-6); HEMOGLOBIN 9.2 g/dl (14.0-17.9); LYMPHOCYTES # (AUTO) 1.2 X10'3 (1.1-4.8); LYMPHOCYTES % (AUTO) 14.5 % (21-51); MEAN CORPUSCULAR HEMOGLOBIN 27.1 PG (27.0-31.0); MEAN CORPUSCULAR HGB CONC 32.9 % (33.0-36.5); MEAN CORPUSCULAR VOLUME 82.3 FL (78-98); MEAN PLATELET VOLUME 8.6 FL (7.4-10.4); MONOCYTES % (AUTO) 11.4 % (2-12); NEUTROPHILS # (AUTO) 5.9 X10'3 (1.8-7.7); NEUTROPHILS % (AUTO) 69.8 % (42-75); PLATELET COUNT 313 X10'3 (140-440); RED CELL DISTRIBUTION WIDTH 20.6 % (11.5-14.5); WHITE BLOOD COUNT 8.5 X10'3 (4.5-11.0)
[2017-06-12 05:29] LABS: ANION GAP 8 (8-16); CHLORIDE 95 MMOL/L (99-107); GLUCOSE 107 MG/DL (70-104); POTASSIUM 5.6 MMOL/L (3.5-5.1); SODIUM 130 MMOL/L (135-145); TOTAL CARBON DIOXIDE 27.3 MMOL/L (24-32)
[2017-06-12 05:30] LABS: ALBUMIN 1.8 G/DL (3.4-5.0); BLOOD UREA NITROGEN 52 MG/DL (7-18); BUN/CREATININE RATIO 9.2 (5.4-32.0); CALCIUM 8.3 MG/DL (8.5-10.1); CREATININE 5.68 MG/DL (0.60-1.10); VANCOMYCIN,RANDOM 15.7 UG/ML; eGFR 12 ML/MIN
[2017-06-12] MEDS ORDERED: heparin 1,000 units/ml 10ml inj HE ONE ×2 (07:25)
[2017-06-12 07:31] VITALS: BP 123/55
[2017-06-12] MEDS ORDERED: LIDOcaine 1% (10mg/ml) 2ml vial SQ ONE (08:00)
[2017-06-12] MEDS ORDERED: epoetin 20,000 units/ml inj IV ONE (08:00)
[2017-06-12] MEDS: carvedilol 6.25mg tablet PO SCH ×2 (08:00→20:11)
[2017-06-12] MEDS ORDERED: heparin 1,000unit/ml 10ml vial 10 ML IV ONE (08:00)
[2017-06-12] MEDS: NUT.TX.GLUC.INTOLER,LAC-FR,REG (BOOST GLUCOSE CONTROL) 237 ML PO SCH ×3 (08:00→17:52)
[2017-06-12] MEDS: K and/or MAG REPLACEMENT MC SCH (08:00)
[2017-06-12] MEDS ORDERED: normal saline 1000ml 250 ML IV PRN (08:00)
[2017-06-12] MEDS: isosorbide mononitrate 30mg tab.SR.24H PO SCH (08:00)
[2017-06-12] MEDS: aspirin 81mg tab.chew PO SCH (08:30)
[2017-06-12] MEDS: lactobacillus rhamnosus 10,000 MMU CELLS/CAPSULE PO SCH ×2 (09:33→16:39)
[2017-06-12] MEDS: atorvastatin 10mg tablet PO SCH (09:35)
[2017-06-12] MEDS: pantoprazole 40mg Tablet.DR PO SCH (09:35)
[2017-06-12] MEDS: docusate sod 100mg capsule PO SCH ×2 (09:36→20:11)
[2017-06-12] MEDS: ferrous sulfate 325mg tablet PO SCH (09:36)
[2017-06-12] MEDS: pregabalin 25mg capsule PO SCH ×2 (09:36→20:11)
[2017-06-12] MEDS: tamsulosin 0.4mg capsule PO SCH (09:36)
[2017-06-12] MEDS: nicotine 7mg patch - 24hr TD SCH (09:38)
[2017-06-12] MEDS: HYDROcodone/acetaminophen 5mg/325mg tablet PO PRN (09:50)
[2017-06-12] MEDS: cefepime 1GM/100ML NS ADD-VANTAGE BAG IV SCH (11:45)
[2017-06-12 12:08] VITALS: BP 124/43
[2017-06-12] MEDS ORDERED: vancomycin/NS 1 GM ADD-VANTAGE 250 ML IV PRN (15:35)
[2017-06-12 20:00] VITALS: BP 134/58
[2017-06-12] MEDS: sennosides/docusate sodium tablet PO SCH (20:11)
[2017-06-13] VITALS (23 sets, daily range): BP systolic 102–141; BP diastolic 41–58
[2017-06-13] MEDS: HYDROcodone/acetaminophen 5mg/325mg tablet PO PRN (00:04)
[2017-06-13] MEDS: VANCOMYCIN LEVEL IV SCH (03:00)
[2017-06-13 05:18] LABS: BASOPHILS # (AUTO) 0.1 X10'3 (0-0.2); BASOPHILS % (AUTO) 0.9 % (0-1); EOSINOPHILS # (AUTO) 0.4 X10'3 (0-0.9); EOSINOPHILS % (AUTO) 6.4 % (0-6); HEMATOCRIT 27.7 % (42.0-52.0); HEMOGLOBIN 8.8 g/dl (14.0-17.9); LYMPHOCYTES # (AUTO) 1.2 X10'3 (1.1-4.8); LYMPHOCYTES % (AUTO) 18.1 % (21-51); MEAN CORPUSCULAR HEMOGLOBIN 26.3 PG (27.0-31.0); MEAN CORPUSCULAR HGB CONC 31.7 % (33.0-36.5); MEAN CORPUSCULAR VOLUME 82.9 FL (78-98); MEAN PLATELET VOLUME 8.5 FL (7.4-10.4); MONOCYTES # (AUTO) 0.8 X10'3 (0-0.9); MONOCYTES % (AUTO) 12.4 % (2-12); NEUTROPHILS # (AUTO) 4.2 X10'3 (1.8-7.7); NEUTROPHILS % (AUTO) 62.2 % (42-75); PLATELET COUNT 306 X10'3 (140-440); RED BLOOD COUNT 3.34 X10'6 (4.70-6.10); RED CELL DISTRIBUTION WIDTH 19.8 % (11.5-14.5); WHITE BLOOD COUNT 6.8 X10'3 (4.5-11.0)
[2017-06-13 05:31] LABS: INR 1.5 INR; PARTIAL THROMBOPLASTIN TIME 29 SECONDS (22-32); PROTHROMBIN TIME 14.9 SECONDS (9.0-12.0)
[2017-06-13 05:57] LABS: ALANINE AMINOTRANSFERASE 19 U/L (12-78); ALBUMIN 1.7 G/DL (3.4-5.0); ALBUMIN/GLOBULIN RATIO 0.3 (1.1-1.5); ALKALINE PHOSPHATASE 155 IU/L (46-116); ANION GAP 6 (8-16); ASPARTATE AMINO TRANSFERASE 29 U/L (10-37); BILIRUBIN,TOTAL 0.6 MG/DL (0.1-1.0); BLOOD UREA NITROGEN 35 MG/DL (7-18); BUN/CREATININE RATIO 8.2 (5.4-32.0); CALCIUM 8.3 MG/DL (8.5-10.1); CHLORIDE 98 MMOL/L (99-107); CREATININE 4.28 MG/DL (0.60-1.10); GLUCOSE 107 MG/DL (70-104); POTASSIUM 4.4 MMOL/L (3.5-5.1); SODIUM 134 MMOL/L (135-145); TOTAL CARBON DIOXIDE 29.7 MMOL/L (24-32); TOTAL PROTEIN 7.8 G/DL (6.4-8.2); VANCOMYCIN,RANDOM 11.7 UG/ML; eGFR 17 ML/MIN
[2017-06-13] MEDS ORDERED: vancomycin/NS 1 GM ADD-VANTAGE 250 ML IV ONE (07:40)
[2017-06-13] MEDS: NUT.TX.GLUC.INTOLER,LAC-FR,REG (BOOST GLUCOSE CONTROL) 237 ML PO SCH ×3 (08:00→19:00)
[2017-06-13] MEDS: K and/or MAG REPLACEMENT MC SCH (08:00)
[2017-06-13] MEDS: aspirin 81mg tab.chew PO SCH (08:09)
[2017-06-13] MEDS: cefepime 1GM/100ML NS ADD-VANTAGE BAG IV SCH (08:49)
[2017-06-13] MEDS: lactobacillus rhamnosus 10,000 MMU CELLS/CAPSULE PO SCH ×2 (09:04→17:24)
[2017-06-13] MEDS: pantoprazole 40mg Tablet.DR PO SCH (09:05)
[2017-06-13] MEDS: isosorbide mononitrate 30mg tab.SR.24H PO SCH (09:06)
[2017-06-13] MEDS: tamsulosin 0.4mg capsule PO SCH (09:06)
[2017-06-13] MEDS: ferrous sulfate 325mg tablet PO SCH (09:07)
[2017-06-13] MEDS: atorvastatin 10mg tablet PO SCH (09:07)
[2017-06-13] MEDS: docusate sod 100mg capsule PO SCH ×2 (09:07→22:46)
[2017-06-13] MEDS: carvedilol 6.25mg tablet PO SCH ×2 (09:07→22:47)
[2017-06-13] MEDS: pregabalin 25mg capsule PO SCH ×2 (09:08→22:46)
[2017-06-13] MEDS: nicotine 7mg patch - 24hr TD SCH (09:09)
[2017-06-13] MEDS: morphine 2 MG/ML inj. syringe IV PRN (12:21)
[2017-06-13] MEDS ORDERED: midazolam 2 mg/2 ml injection ONE (14:20)
[2017-06-13] MEDS ORDERED: fentaNYL/PF 50MCG/1 ML 2ML syringe ONE (14:20)
[2017-06-13] MEDS ORDERED: propofol inj 0 ML IV ONE (14:22)
[2017-06-13] MEDS ORDERED: LIDOcaine 2% (20mg/ml) 5ml vial ONE ×2 (14:22→14:41)
[2017-06-13] MEDS ORDERED: propofol inj 20 ML IV ONE (14:41)
[2017-06-13] MEDS ORDERED: normal saline 1000ml 1,000 ML IV ONE (14:53)
[2017-06-13] MEDS ORDERED: ondansetron/PF 4mg/2ml inj IV PRN (14:55)
[2017-06-13] MEDS ORDERED: morphine 2 MG/ML inj. syringe IV PRN (14:55)
[2017-06-13] MEDS: sennosides/docusate sodium tablet PO SCH (22:46)
[2017-06-14] VITALS: BP 132/50
[2017-06-14] MEDS: morphine 2 MG/ML inj. syringe IV PRN ×3 (00:16→21:25)
[2017-06-14] MEDS: VANCOMYCIN LEVEL IV SCH (03:00)
[2017-06-14 05:31] LABS: BASOPHILS # (AUTO) 0.1 X10'3 (0-0.2); BASOPHILS % (AUTO) 0.9 % (0-1); EOSINOPHILS # (AUTO) 0.4 X10'3 (0-0.9); EOSINOPHILS % (AUTO) 5.5 % (0-6); HEMATOCRIT 27.2 % (42.0-52.0); HEMOGLOBIN 8.8 g/dl (14.0-17.9); LYMPHOCYTES # (AUTO) 1.2 X10'3 (1.1-4.8); MEAN CORPUSCULAR HEMOGLOBIN 26.5 PG (27.0-31.0); MEAN CORPUSCULAR HGB CONC 32.3 % (33.0-36.5); MEAN PLATELET VOLUME 8.4 FL (7.4-10.4); MONOCYTES # (AUTO) 0.8 X10'3 (0-0.9); MONOCYTES % (AUTO) 11.6 % (2-12); NEUTROPHILS # (AUTO) 4.3 X10'3 (1.8-7.7); PLATELET COUNT 319 X10'3 (140-440); RED BLOOD COUNT 3.32 X10'6 (4.70-6.10); RED CELL DISTRIBUTION WIDTH 19.9 % (11.5-14.5); WHITE BLOOD COUNT 6.7 X10'3 (4.5-11.0)
[2017-06-14 05:50] LABS: ALANINE AMINOTRANSFERASE 21 U/L (12-78); ALBUMIN 1.7 G/DL (3.4-5.0); ALBUMIN/GLOBULIN RATIO 0.3 (1.1-1.5); ALKALINE PHOSPHATASE 134 IU/L (46-116); ANION GAP 9 (8-16); ASPARTATE AMINO TRANSFERASE 30 U/L (10-37); BILIRUBIN,TOTAL 0.6 MG/DL (0.1-1.0); BLOOD UREA NITROGEN 45 MG/DL (7-18); BUN/CREATININE RATIO 8.5 (5.4-32.0); CALCIUM 8.7 MG/DL (8.5-10.1); CHLORIDE 98 MMOL/L (99-107); CREATININE 5.27 MG/DL (0.60-1.10); GLUCOSE 88 MG/DL (70-104); MAGNESIUM 2.2 MG/DL (1.5-2.4); POTASSIUM 5.2 MMOL/L (3.5-5.1); SODIUM 134 MMOL/L (135-145); TOTAL CARBON DIOXIDE 27.1 MMOL/L (24-32); TOTAL PROTEIN 7.6 G/DL (6.4-8.2); VANCOMYCIN,RANDOM 22.6 UG/ML; eGFR 13 ML/MIN
[2017-06-14 07:00] VITALS: BP 136/56
[2017-06-14] MEDS ORDERED: heparin 1,000 units/ml 10ml inj HE ONE ×2 (07:25)
[2017-06-14] MEDS ORDERED: epoetin 20,000 units/ml inj IV ONE (08:00)
[2017-06-14] MEDS: cefepime 1GM/100ML NS ADD-VANTAGE BAG IV SCH (08:00)
[2017-06-14] MEDS: isosorbide mononitrate 30mg tab.SR.24H PO SCH (08:00)
[2017-06-14] MEDS ORDERED: heparin 1,000unit/ml 10ml vial 10 ML IV ONE (08:00)
[2017-06-14] MEDS ORDERED: LIDOcaine 1% (10mg/ml) 2ml vial SQ ONE (08:00)
[2017-06-14] MEDS: NUT.TX.GLUC.INTOLER,LAC-FR,REG (BOOST GLUCOSE CONTROL) 237 ML PO SCH ×3 (08:00→18:15)
[2017-06-14] MEDS ORDERED: normal saline 1000ml 250 ML IV PRN (08:00)
[2017-06-14] MEDS: K and/or MAG REPLACEMENT MC SCH (08:00)
[2017-06-14] MEDS: carvedilol 6.25mg tablet PO SCH ×2 (08:00→21:26)
[2017-06-14] MEDS: lactobacillus rhamnosus 10,000 MMU CELLS/CAPSULE PO SCH ×2 (10:09→18:14)
[2017-06-14] MEDS: ferrous sulfate 325mg tablet PO SCH (10:09)
[2017-06-14] MEDS: tamsulosin 0.4mg capsule PO SCH (10:09)
[2017-06-14] MEDS: atorvastatin 10mg tablet PO SCH (10:09)
[2017-06-14] MEDS: pantoprazole 40mg Tablet.DR PO SCH (10:09)
[2017-06-14] MEDS: docusate sod 100mg capsule PO SCH ×2 (10:09→21:26)
[2017-06-14] MEDS: aspirin 81mg tab.chew PO SCH (10:10)
[2017-06-14] MEDS: multivitamins, therapeutics tablet PO SCH (10:10)
[2017-06-14] MEDS: pregabalin 25mg capsule PO SCH ×2 (10:10→21:25)
[2017-06-14] MEDS: HYDROcodone/acetaminophen 5mg/325mg tablet PO PRN (10:10)
[2017-06-14] MEDS: nicotine 7mg patch - 24hr TD SCH (10:11)
[2017-06-14 11:00] VITALS: BP 88/34
[2017-06-14] MEDS ORDERED: cefepime 1GM/100ML NS ADD-VANTAGE BAG IV ONE (15:30)
[2017-06-14 20:00] VITALS: BP 117/81
[2017-06-14] MEDS: sennosides/docusate sodium tablet PO SCH (21:26)
[2017-06-15] VITALS: BP 135/49
[2017-06-15] MEDS: morphine 2 MG/ML inj. syringe IV PRN (01:48)
[2017-06-15] MEDS: VANCOMYCIN LEVEL IV SCH (03:00)
[2017-06-15 05:23] LABS: BASOPHILS % (AUTO) 0.2 % (0-1); EOSINOPHILS # (AUTO) 0.5 X10'3 (0-0.9); EOSINOPHILS % (AUTO) 5.2 % (0-6); HEMATOCRIT 28.4 % (42.0-52.0); HEMOGLOBIN 9.2 g/dl (14.0-17.9); LYMPHOCYTES # (AUTO) 1.1 X10'3 (1.1-4.8); LYMPHOCYTES % (AUTO) 10.8 % (21-51); MEAN CORPUSCULAR HEMOGLOBIN 26.4 PG (27.0-31.0); MEAN CORPUSCULAR HGB CONC 32.3 % (33.0-36.5); MEAN CORPUSCULAR VOLUME 81.7 FL (78-98); MEAN PLATELET VOLUME 8.3 FL (7.4-10.4); MONOCYTES # (AUTO) 1.1 X10'3 (0-0.9); MONOCYTES % (AUTO) 11.3 % (2-12); NEUTROPHILS # (AUTO) 7.2 X10'3 (1.8-7.7); NEUTROPHILS % (AUTO) 72.5 % (42-75); PLATELET COUNT 332 X10'3 (140-440); RED BLOOD COUNT 3.48 X10'6 (4.70-6.10); RED CELL DISTRIBUTION WIDTH 19.7 % (11.5-14.5); WHITE BLOOD COUNT 9.9 X10'3 (4.5-11.0)
[2017-06-15 06:02] LABS: ALANINE AMINOTRANSFERASE 23 U/L (12-78); ALBUMIN 1.8 G/DL (3.4-5.0); ALBUMIN/GLOBULIN RATIO 0.3 (1.1-1.5); ALKALINE PHOSPHATASE 144 IU/L (46-116); ANION GAP 8 (8-16); ASPARTATE AMINO TRANSFERASE 32 U/L (10-37); BILIRUBIN,TOTAL 0.6 MG/DL (0.1-1.0); BLOOD UREA NITROGEN 30 MG/DL (7-18); BUN/CREATININE RATIO 7.1 (5.4-32.0); CALCIUM 8.4 MG/DL (8.5-10.1); CHLORIDE 98 MMOL/L (99-107); CREATININE 4.22 MG/DL (0.60-1.10); GLUCOSE 129 MG/DL (70-104); MAGNESIUM 2.1 MG/DL (1.5-2.4); POTASSIUM 4.4 MMOL/L (3.5-5.1); SODIUM 135 MMOL/L (135-145); TOTAL CARBON DIOXIDE 29.3 MMOL/L (24-32); TOTAL PROTEIN 8.1 G/DL (6.4-8.2); VANCOMYCIN,RANDOM 17.7 UG/ML; eGFR 17 ML/MIN
[2017-06-15 08:00] VITALS: BP 130/62
[2017-06-15] MEDS ORDERED: LIDOcaine 1% (10mg/ml) 2ml vial SQ ONE (08:00)
[2017-06-15] MEDS: ferrous sulfate 325mg tablet PO SCH (08:00)
[2017-06-15] MEDS ORDERED: normal saline 1000ml 250 ML IV PRN (08:00)
[2017-06-15] MEDS ORDERED: heparin 1,000unit/ml 10ml vial 10 ML IV ONE (08:00)
[2017-06-15] MEDS: NUT.TX.GLUC.INTOLER,LAC-FR,REG (BOOST GLUCOSE CONTROL) 237 ML PO SCH ×3 (08:00→19:00)
[2017-06-15] MEDS: K and/or MAG REPLACEMENT MC SCH (08:00)
[2017-06-15] MEDS ORDERED: epoetin 20,000 units/ml inj IV ONE (08:00)
[2017-06-15] MEDS ORDERED: heparin 1,000 units/ml 10ml inj IV ONE (08:00)
[2017-06-15] MEDS: atorvastatin 10mg tablet PO SCH (08:09)
[2017-06-15] MEDS: cefepime 1GM/100ML NS ADD-VANTAGE BAG IV SCH (08:09)
[2017-06-15] MEDS: aspirin 81mg tab.chew PO SCH (08:10)
[2017-06-15] MEDS: multivitamins, therapeutics tablet PO SCH (08:10)
[2017-06-15] MEDS: carvedilol 6.25mg tablet PO SCH ×2 (08:10→21:26)
[2017-06-15] MEDS: pantoprazole 40mg Tablet.DR PO SCH (08:10)
[2017-06-15] MEDS: isosorbide mononitrate 30mg tab.SR.24H PO SCH (08:10)
[2017-06-15] MEDS: clopidogrel 75mg tablet PO SCH (08:10)
[2017-06-15] MEDS: pregabalin 25mg capsule PO SCH ×2 (08:10→21:26)
[2017-06-15] MEDS: docusate sod 100mg capsule PO SCH ×2 (08:10→21:25)
[2017-06-15] MEDS: tamsulosin 0.4mg capsule PO SCH (08:10)
[2017-06-15] MEDS: lactobacillus rhamnosus 10,000 MMU CELLS/CAPSULE PO SCH ×2 (08:11→17:30)
[2017-06-15] MEDS: nicotine 7mg patch - 24hr TD SCH ×2 (08:11→10:11)
[2017-06-15 11:00] VITALS: BP 128/64
[2017-06-15 20:00] VITALS: BP 126/44
[2017-06-15] MEDS: sennosides/docusate sodium tablet PO SCH (21:25)
[2017-06-15] MEDS: metroNIDAZOLE 500mg tablet PO SCH (21:26)
[2017-06-16] VITALS: BP 126/45
[2017-06-16] MEDS: VANCOMYCIN LEVEL IV SCH (03:00)
[2017-06-16 05:36] LABS: BASOPHILS # (AUTO) 0.1 X10'3 (0-0.2); BASOPHILS % (AUTO) 0.7 % (0-1); EOSINOPHILS # (AUTO) 0.4 X10'3 (0-0.9); EOSINOPHILS % (AUTO) 5.2 % (0-6); HEMATOCRIT 26.2 % (42.0-52.0); HEMOGLOBIN 8.5 g/dl (14.0-17.9); LYMPHOCYTES # (AUTO) 1.3 X10'3 (1.1-4.8); LYMPHOCYTES % (AUTO) 15.9 % (21-51); MEAN CORPUSCULAR HEMOGLOBIN 26.4 PG (27.0-31.0); MEAN CORPUSCULAR HGB CONC 32.4 % (33.0-36.5); MEAN CORPUSCULAR VOLUME 81.3 FL (78-98); MEAN PLATELET VOLUME 8.4 FL (7.4-10.4); MONOCYTES # (AUTO) 0.8 X10'3 (0-0.9); MONOCYTES % (AUTO) 9.1 % (2-12); NEUTROPHILS # (AUTO) 5.8 X10'3 (1.8-7.7); NEUTROPHILS % (AUTO) 69.1 % (42-75); PLATELET COUNT 315 X10'3 (140-440); RED BLOOD COUNT 3.23 X10'6 (4.70-6.10); RED CELL DISTRIBUTION WIDTH 19.4 % (11.5-14.5); WHITE BLOOD COUNT 8.5 X10'3 (4.5-11.0)
[2017-06-16 07:00] VITALS: BP 124/42
[2017-06-16 07:15] LABS: ALANINE AMINOTRANSFERASE 25 U/L (12-78); ALBUMIN 1.7 G/DL (3.4-5.0); ALBUMIN/GLOBULIN RATIO 0.3 (1.1-1.5); ALKALINE PHOSPHATASE 150 IU/L (46-116); ANION GAP 12 (8-16); ASPARTATE AMINO TRANSFERASE 32 U/L (10-37); BILIRUBIN,TOTAL 0.7 MG/DL (0.1-1.0); BLOOD UREA NITROGEN 44 MG/DL (7-18); BUN/CREATININE RATIO 7.3 (5.4-32.0); CALCIUM 8.5 MG/DL (8.5-10.1); CHLORIDE 99 MMOL/L (99-107); CREATININE 5.99 MG/DL (0.60-1.10); GLUCOSE 107 MG/DL (70-104); MAGNESIUM 1.9 MG/DL (1.5-2.4); POTASSIUM 4.6 MMOL/L (3.5-5.1); SODIUM 137 MMOL/L (135-145); TOTAL PROTEIN 7.6 G/DL (6.4-8.2); VANCOMYCIN,RANDOM 15.2 UG/ML; eGFR 11 ML/MIN
[2017-06-16] MEDS ORDERED: heparin 1,000 units/ml 10ml inj HE ONE ×2 (07:40)
[2017-06-16] MEDS: K and/or MAG REPLACEMENT MC SCH (08:00)
[2017-06-16] MEDS ORDERED: LIDOcaine 1% (10mg/ml) 2ml vial SQ ONE (08:00)
[2017-06-16] MEDS ORDERED: heparin 1,000unit/ml 10ml vial 10 ML IV ONE (08:00)
[2017-06-16] MEDS ORDERED: normal saline 1000ml 250 ML IV PRN (08:00)
[2017-06-16] MEDS ORDERED: epoetin 20,000 units/ml inj IV ONE (08:00)
[2017-06-16] MEDS: NUT.TX.GLUC.INTOLER,LAC-FR,REG (BOOST GLUCOSE CONTROL) 237 ML PO SCH ×3 (08:00→18:16)
[2017-06-16] MEDS: carvedilol 6.25mg tablet PO SCH ×2 (08:00→20:34)
[2017-06-16] MEDS: metroNIDAZOLE 500mg tablet PO SCH ×2 (09:25→20:34)
[2017-06-16] MEDS: lactobacillus rhamnosus 10,000 MMU CELLS/CAPSULE PO SCH ×2 (09:25→16:53)
[2017-06-16] MEDS: tamsulosin 0.4mg capsule PO SCH (09:25)
[2017-06-16] MEDS: ferrous sulfate 325mg tablet PO SCH (09:26)
[2017-06-16] MEDS: pregabalin 25mg capsule PO SCH ×2 (09:26→20:34)
[2017-06-16] MEDS: clopidogrel 75mg tablet PO SCH (09:26)
[2017-06-16] MEDS: aspirin 81mg tab.chew PO SCH (09:26)
[2017-06-16] MEDS: docusate sod 100mg capsule PO SCH ×2 (09:26→20:34)
[2017-06-16] MEDS: multivitamins, therapeutics tablet PO SCH (09:26)
[2017-06-16] MEDS: pantoprazole 40mg Tablet.DR PO SCH (09:27)
[2017-06-16] MEDS: atorvastatin 10mg tablet PO SCH (09:28)
[2017-06-16] MEDS: nicotine 7mg patch - 24hr TD SCH (09:28)
[2017-06-16] MEDS: HYDROcodone/acetaminophen 5mg/325mg tablet PO PRN ×2 (09:41→16:53)
[2017-06-16 11:00] VITALS: BP 126/54
[2017-06-16] MEDS: cefepime 1GM/100ML NS ADD-VANTAGE BAG IV SCH (12:30)
[2017-06-16] MEDS: isosorbide mononitrate 30mg tab.SR.24H PO SCH (12:36)
[2017-06-16] MEDS: magnesium hydroxide 30ml (MOM) UD suspension PO PRN (16:53)
[2017-06-16 20:00] VITALS: BP 128/54
[2017-06-16] MEDS: sennosides/docusate sodium tablet PO SCH (20:35)
[2017-06-17] VITALS: BP 112/50
[2017-06-17] MEDS: VANCOMYCIN LEVEL IV SCH (03:00)
[2017-06-17 06:00] VITALS: BP 132/59
[2017-06-17 06:02] LABS: BASOPHILS % (AUTO) 0.4 % (0-1); EOSINOPHILS # (AUTO) 0.4 X10'3 (0-0.9); HEMATOCRIT 26.3 % (42.0-52.0); HEMOGLOBIN 8.5 g/dl (14.0-17.9); LYMPHOCYTES # (AUTO) 1.3 X10'3 (1.1-4.8); LYMPHOCYTES % (AUTO) 14.4 % (21-51); MEAN CORPUSCULAR HEMOGLOBIN 26.3 PG (27.0-31.0); MEAN CORPUSCULAR HGB CONC 32.1 % (33.0-36.5); MEAN CORPUSCULAR VOLUME 81.7 FL (78-98); MEAN PLATELET VOLUME 8.3 FL (7.4-10.4); NEUTROPHILS # (AUTO) 6.2 X10'3 (1.8-7.7); NEUTROPHILS % (AUTO) 69.2 % (42-75); PLATELET COUNT 316 X10'3 (140-440); RED BLOOD COUNT 3.22 X10'6 (4.70-6.10); RED CELL DISTRIBUTION WIDTH 19.8 % (11.5-14.5); WHITE BLOOD COUNT 8.9 X10'3 (4.5-11.0)
[2017-06-17 06:35] LABS: ALANINE AMINOTRANSFERASE 27 U/L (12-78); ALBUMIN 1.8 G/DL (3.4-5.0); ALBUMIN/GLOBULIN RATIO 0.3 (1.1-1.5); ALKALINE PHOSPHATASE 152 IU/L (46-116); ANION GAP 10 (8-16); ASPARTATE AMINO TRANSFERASE 35 U/L (10-37); BILIRUBIN,TOTAL 0.6 MG/DL (0.1-1.0); BLOOD UREA NITROGEN 33 MG/DL (7-18); BUN/CREATININE RATIO 7.4 (5.4-32.0); CALCIUM 8.6 MG/DL (8.5-10.1); CHLORIDE 100 MMOL/L (99-107); CREATININE 4.46 MG/DL (0.60-1.10); GLUCOSE 119 MG/DL (70-104); MAGNESIUM 2.1 MG/DL (1.5-2.4); POTASSIUM 4.1 MMOL/L (3.5-5.1); SODIUM 138 MMOL/L (135-145); TOTAL CARBON DIOXIDE 28.2 MMOL/L (24-32); TOTAL PROTEIN 7.9 G/DL (6.4-8.2); VANCOMYCIN,RANDOM 12.8 UG/ML; eGFR 16 ML/MIN
[2017-06-17] MEDS ORDERED: vancomycin/NS 1 GM ADD-VANTAGE 250 ML IV ONE (07:50)
[2017-06-17] MEDS: K and/or MAG REPLACEMENT MC SCH (08:00)
[2017-06-17] MEDS: tamsulosin 0.4mg capsule PO SCH (08:42)
[2017-06-17] MEDS: isosorbide mononitrate 30mg tab.SR.24H PO SCH (08:42)
[2017-06-17] MEDS: multivitamins, therapeutics tablet PO SCH (08:42)
[2017-06-17] MEDS: atorvastatin 10mg tablet PO SCH (08:42)
[2017-06-17] MEDS: carvedilol 6.25mg tablet PO SCH ×2 (08:42→20:00)
[2017-06-17] MEDS: pregabalin 25mg capsule PO SCH ×2 (08:42→20:56)
[2017-06-17] MEDS: ferrous sulfate 325mg tablet PO SCH (08:42)
[2017-06-17] MEDS: HYDROcodone/acetaminophen 5mg/325mg tablet PO PRN ×3 (08:43→21:29)
[2017-06-17] MEDS: metroNIDAZOLE 500mg tablet PO SCH ×2 (08:43→20:54)
[2017-06-17] MEDS: clopidogrel 75mg tablet PO SCH (08:43)
[2017-06-17] MEDS: aspirin 81mg tab.chew PO SCH (08:43)
[2017-06-17] MEDS: docusate sod 100mg capsule PO SCH ×2 (08:43→20:54)
[2017-06-17] MEDS: nicotine 7mg patch - 24hr TD SCH (08:44)
[2017-06-17] MEDS: cefepime 1GM/100ML NS ADD-VANTAGE BAG IV SCH (08:44)
[2017-06-17] MEDS: lactobacillus rhamnosus 10,000 MMU CELLS/CAPSULE PO SCH ×2 (08:54→16:55)
[2017-06-17] MEDS: pantoprazole 40mg Tablet.DR PO SCH (08:54)
[2017-06-17] MEDS: NUT.TX.GLUC.INTOLER,LAC-FR,REG (BOOST GLUCOSE CONTROL) 237 ML PO SCH ×3 (08:57→18:43)
[2017-06-17 13:00] VITALS: BP 137/53
[2017-06-17 19:00] VITALS: BP 116/58
[2017-06-17] MEDS: magnesium hydroxide 30ml (MOM) UD suspension PO PRN (20:56)
[2017-06-17] MEDS: sennosides/docusate sodium tablet PO SCH (20:56)
[2017-06-18] VITALS: BP 132/57
[2017-06-18] MEDS: HYDROcodone/acetaminophen 5mg/325mg tablet PO PRN ×5 (02:36→22:17)
[2017-06-18] MEDS: VANCOMYCIN LEVEL IV SCH (03:00)
[2017-06-18 04:49] VITALS: BP 129/64
[2017-06-18 07:00] VITALS: BP 142/54
[2017-06-18] MEDS: pantoprazole 40mg Tablet.DR PO SCH (07:49)
[2017-06-18] MEDS: lactobacillus rhamnosus 10,000 MMU CELLS/CAPSULE PO SCH ×2 (07:49→17:31)
[2017-06-18] MEDS: pregabalin 25mg capsule PO SCH ×2 (07:49→22:03)
[2017-06-18] MEDS: atorvastatin 10mg tablet PO SCH (07:50)
[2017-06-18] MEDS: clopidogrel 75mg tablet PO SCH (07:50)
[2017-06-18] MEDS: multivitamins, therapeutics tablet PO SCH (07:50)
[2017-06-18] MEDS: nicotine 7mg patch - 24hr TD SCH (07:50)
[2017-06-18] MEDS: ferrous sulfate 325mg tablet PO SCH (07:50)
[2017-06-18] MEDS: tamsulosin 0.4mg capsule PO SCH (07:51)
[2017-06-18] MEDS: cefepime 1GM/100ML NS ADD-VANTAGE BAG IV SCH (07:51)
[2017-06-18] MEDS: metroNIDAZOLE 500mg tablet PO SCH ×2 (07:51→22:04)
[2017-06-18] MEDS: aspirin 81mg tab.chew PO SCH (07:51)
[2017-06-18] MEDS: docusate sod 100mg capsule PO SCH ×2 (07:51→22:03)
[2017-06-18] MEDS: magnesium hydroxide 30ml (MOM) UD suspension PO PRN (07:51)
[2017-06-18] MEDS: K and/or MAG REPLACEMENT MC SCH (08:00)
[2017-06-18] MEDS: NUT.TX.GLUC.INTOLER,LAC-FR,REG (BOOST GLUCOSE CONTROL) 237 ML PO SCH ×3 (08:00→18:31)
[2017-06-18] MEDS: carvedilol 6.25mg tablet PO SCH ×2 (08:00→22:03)
[2017-06-18] MEDS: isosorbide mononitrate 30mg tab.SR.24H PO SCH (12:55)
[2017-06-18 19:00] VITALS: BP 108/42
[2017-06-18 19:03] LABS: CLARITY,URINE CLOUDY (Clear); COLOR,URINE YELLOW (Yellow); GLUCOSE, URINE NEGATIVE (Neg); KETONES,URINE NEGATIVE (Neg); LEUKOCYTE ESTERASE ,URINE LARGE (Neg); NITRITES, URINE NEGATIVE (Neg); OCCULT BLOOD,URINE LARGE (Neg); PROTEIN,URINE >=300 mg/dl (Neg); UROBILINOGEN,URINE 0.2 E.U/dL (0.2-1.0)
[2017-06-18 19:05] LABS: UA COLLECTION TYPE STRAIGHT CATH
[2017-06-18 19:10] LABS: BACTERIA,URINE 4+ /HPF (Neg); RBC,URINE 50-100 /HPF (0-2); SQUAMOUS EPITHELIAL CELL,UR NONE SEEN /LPF (FEW); TRANSITIONAL EPI CELLS,URINE FEW /HPF; WBC,URINE TNTC /HPF (0-4)
[2017-06-18] MEDS: sennosides/docusate sodium tablet PO SCH (22:03)
[2017-06-19] VITALS: BP 106/45
[2017-06-19] MEDS: VANCOMYCIN LEVEL IV SCH (03:00)
[2017-06-19 04:23] LABS: BASOPHILS # (AUTO) 0.1 X10'3 (0-0.2); BASOPHILS % (AUTO) 0.7 % (0-1); EOSINOPHILS # (AUTO) 0.7 X10'3 (0-0.9); EOSINOPHILS % (AUTO) 8.3 % (0-6); HEMOGLOBIN 8.6 g/dl (14.0-17.9); LYMPHOCYTES # (AUTO) 1.2 X10'3 (1.1-4.8); LYMPHOCYTES % (AUTO) 14.8 % (21-51); MEAN CORPUSCULAR HEMOGLOBIN 25.9 PG (27.0-31.0); MEAN CORPUSCULAR HGB CONC 31.8 % (33.0-36.5); MEAN CORPUSCULAR VOLUME 81.3 FL (78-98); MEAN PLATELET VOLUME 7.8 FL (7.4-10.4); MONOCYTES # (AUTO) 0.9 X10'3 (0-0.9); MONOCYTES % (AUTO) 11.5 % (2-12); NEUTROPHILS # (AUTO) 5.1 X10'3 (1.8-7.7); NEUTROPHILS % (AUTO) 64.7 % (42-75); PLATELET COUNT 338 X10'3 (140-440); RED BLOOD COUNT 3.32 X10'6 (4.70-6.10); RED CELL DISTRIBUTION WIDTH 19.4 % (11.5-14.5); WHITE BLOOD COUNT 7.8 X10'3 (4.5-11.0)
[2017-06-19 04:40] LABS: ALBUMIN 1.7 G/DL (3.4-5.0); ANION GAP 10 (8-16); BLOOD UREA NITROGEN 55 MG/DL (7-18); BUN/CREATININE RATIO 8.8 (5.4-32.0); CALCIUM 8.6 MG/DL (8.5-10.1); CHLORIDE 98 MMOL/L (99-107); CREATININE 6.22 MG/DL (0.60-1.10); GLUCOSE 117 MG/DL (70-104); POTASSIUM 5.2 MMOL/L (3.5-5.1); SODIUM 135 MMOL/L (135-145); TOTAL CARBON DIOXIDE 27.2 MMOL/L (24-32); VANCOMYCIN,RANDOM 20.4 UG/ML; eGFR 11 ML/MIN
[2017-06-19 04:53] LABS: ANISOCYTOSIS 2+; PLATELET ESTIMATE NORMAL; POLYCHROMASIA FEW; TARGET CELLS 2+; TEAR DROP CELLS FEW
[2017-06-19] MEDS: HYDROcodone/acetaminophen 5mg/325mg tablet PO PRN ×3 (05:43→22:35)
[2017-06-19 07:00] VITALS: BP 130/65
[2017-06-19] MEDS ORDERED: heparin 1,000 units/ml 10ml inj HE ONE ×2 (07:20)
[2017-06-19] MEDS: K and/or MAG REPLACEMENT MC SCH (08:00)
[2017-06-19] MEDS ORDERED: epoetin 20,000 units/ml inj IV ONE (08:00)
[2017-06-19] MEDS ORDERED: heparin 1,000 units/ml 10ml inj IV ONE (08:00)
[2017-06-19] MEDS ORDERED: heparin 1,000unit/ml 10ml vial 10 ML IV ONE (08:00)
[2017-06-19] MEDS ORDERED: normal saline 1000ml 250 ML IV PRN (08:00)
[2017-06-19] MEDS: NUT.TX.GLUC.INTOLER,LAC-FR,REG (BOOST GLUCOSE CONTROL) 237 ML PO SCH ×3 (08:00→18:00)
[2017-06-19] MEDS ORDERED: LIDOcaine 1% (10mg/ml) 2ml vial SQ ONE (08:00)
[2017-06-19 11:00] VITALS: BP 124/51
[2017-06-19] MEDS: cefepime 1GM/100ML NS ADD-VANTAGE BAG IV SCH (11:51)
[2017-06-19] MEDS: nicotine 7mg patch - 24hr TD SCH (11:51)
[2017-06-19] MEDS: pantoprazole 40mg Tablet.DR PO SCH (11:51)
[2017-06-19] MEDS: lactobacillus rhamnosus 10,000 MMU CELLS/CAPSULE PO SCH ×2 (11:51→17:24)
[2017-06-19] MEDS: carvedilol 6.25mg tablet PO SCH ×2 (11:52→22:30)
[2017-06-19] MEDS: docusate sod 100mg capsule PO SCH ×2 (11:52→22:30)
[2017-06-19] MEDS: ferrous sulfate 325mg tablet PO SCH (11:52)
[2017-06-19] MEDS: metroNIDAZOLE 500mg tablet PO SCH ×2 (11:53→22:30)
[2017-06-19] MEDS: tamsulosin 0.4mg capsule PO SCH (11:53)
[2017-06-19] MEDS: pregabalin 25mg capsule PO SCH ×2 (11:53→22:31)
[2017-06-19] MEDS: isosorbide mononitrate 30mg tab.SR.24H PO SCH (11:53)
[2017-06-19] MEDS: clopidogrel 75mg tablet PO SCH (11:53)
[2017-06-19] MEDS: aspirin 81mg tab.chew PO SCH (11:53)
[2017-06-19] MEDS: multivitamins, therapeutics tablet PO SCH (11:53)
[2017-06-19] MEDS: atorvastatin 10mg tablet PO SCH (11:53)
[2017-06-19 19:00] VITALS: BP 127/67
[2017-06-19 22:29] VITALS: BP 140/65
[2017-06-19] MEDS: magnesium hydroxide 30ml (MOM) UD suspension PO PRN (22:30)
[2017-06-19] MEDS: sennosides/docusate sodium tablet PO SCH (22:31)
[2017-06-20] VITALS: BP 146/56
[2017-06-20] MEDS: VANCOMYCIN LEVEL IV SCH (03:00)
[2017-06-20] MEDS: HYDROcodone/acetaminophen 5mg/325mg tablet PO PRN (05:29)
[2017-06-20 05:41] LABS: ALBUMIN 1.7 G/DL (3.4-5.0); ANION GAP 7 (8-16); BLOOD UREA NITROGEN 31 MG/DL (7-18); BUN/CREATININE RATIO 7.1 (5.4-32.0); CALCIUM 8.4 MG/DL (8.5-10.1); CHLORIDE 99 MMOL/L (99-107); CREATININE 4.38 MG/DL (0.60-1.10); GLUCOSE 109 MG/DL (70-104); POTASSIUM 4.3 MMOL/L (3.5-5.1); SODIUM 136 MMOL/L (135-145); TOTAL CARBON DIOXIDE 29.7 MMOL/L (24-32); eGFR 16 ML/MIN
[2017-06-20 07:00] VITALS: BP 143/65
[2017-06-20] MEDS: NUT.TX.GLUC.INTOLER,LAC-FR,REG (BOOST GLUCOSE CONTROL) 237 ML PO SCH ×3 (08:00→18:00)
[2017-06-20] MEDS: K and/or MAG REPLACEMENT MC SCH (08:00)
[2017-06-20] MEDS: atorvastatin 10mg tablet PO SCH (09:45)
[2017-06-20] MEDS: clopidogrel 75mg tablet PO SCH (09:45)
[2017-06-20] MEDS: docusate sod 100mg capsule PO SCH ×2 (09:45→20:04)
[2017-06-20] MEDS: aspirin 81mg tab.chew PO SCH (09:45)
[2017-06-20] MEDS: carvedilol 6.25mg tablet PO SCH ×2 (09:45→20:04)
[2017-06-20] MEDS: cefepime 1GM/100ML NS ADD-VANTAGE BAG IV SCH (09:45)
[2017-06-20] MEDS: ferrous sulfate 325mg tablet PO SCH (09:45)
[2017-06-20] MEDS: multivitamins, therapeutics tablet PO SCH (09:58)
[2017-06-20] MEDS: lactobacillus rhamnosus 10,000 MMU CELLS/CAPSULE PO SCH ×2 (09:58→17:59)
[2017-06-20] MEDS: pantoprazole 40mg Tablet.DR PO SCH (09:58)
[2017-06-20] MEDS: isosorbide mononitrate 30mg tab.SR.24H PO SCH (09:58)
[2017-06-20] MEDS: pregabalin 25mg capsule PO SCH ×2 (09:58→20:05)
[2017-06-20] MEDS: tamsulosin 0.4mg capsule PO SCH (09:58)
[2017-06-20] MEDS: metroNIDAZOLE 500mg tablet PO SCH ×2 (09:58→20:04)
[2017-06-20] MEDS: nicotine 7mg patch - 24hr TD SCH (09:59)
[2017-06-20 11:00] VITALS: BP 129/51
[2017-06-20 20:05] VITALS: BP 151/81
[2017-06-20] MEDS: sennosides/docusate sodium tablet PO SCH (20:05)
[2017-06-20 23:45] VITALS: BP 133/50
[2017-06-21] MEDS: VANCOMYCIN LEVEL IV SCH (03:00)
[2017-06-21 05:52] LABS: ALBUMIN 1.8 G/DL (3.4-5.0); ANION GAP 7 (8-16); BLOOD UREA NITROGEN 44 MG/DL (7-18); BUN/CREATININE RATIO 8.1 (5.4-32.0); CALCIUM 8.6 MG/DL (8.5-10.1); CHLORIDE 98 MMOL/L (99-107); CREATININE 5.42 MG/DL (0.60-1.10); GLUCOSE 126 MG/DL (70-104); POTASSIUM 4.7 MMOL/L (3.5-5.1); SODIUM 133 MMOL/L (135-145); TOTAL CARBON DIOXIDE 27.6 MMOL/L (24-32); VANCOMYCIN,RANDOM 14.5 UG/ML; eGFR 13 ML/MIN
[2017-06-21 07:00] VITALS: BP 137/58
[2017-06-21] MEDS ORDERED: heparin 1,000 units/ml 10ml inj HE ONE ×2 (07:10)
[2017-06-21] MEDS ORDERED: epoetin 20,000 units/ml inj IV ONE (08:00)
[2017-06-21] MEDS ORDERED: LIDOcaine 1% (10mg/ml) 2ml vial SQ ONE (08:00)
[2017-06-21] MEDS: carvedilol 6.25mg tablet PO SCH ×2 (08:00→20:43)
[2017-06-21] MEDS ORDERED: normal saline 1000ml 250 ML IV PRN (08:00)
[2017-06-21] MEDS: clopidogrel 75mg tablet PO SCH (08:00)
[2017-06-21] MEDS: K and/or MAG REPLACEMENT MC SCH (08:00)
[2017-06-21] MEDS: NUT.TX.GLUC.INTOLER,LAC-FR,REG (BOOST GLUCOSE CONTROL) 237 ML PO SCH ×4 (08:00→19:00)
[2017-06-21] MEDS ORDERED: heparin 1,000unit/ml 10ml vial 10 ML IV ONE (08:00)
[2017-06-21] MEDS ORDERED: vancomycin/NS 1 GM ADD-VANTAGE 250 ML IV ONE (08:30)
[2017-06-21] MEDS: isosorbide mononitrate 30mg tab.SR.24H PO SCH (09:29)
[2017-06-21] MEDS: tamsulosin 0.4mg capsule PO SCH (09:29)
[2017-06-21] MEDS: ferrous sulfate 325mg tablet PO SCH (09:29)
[2017-06-21] MEDS: atorvastatin 10mg tablet PO SCH (09:29)
[2017-06-21] MEDS: pregabalin 25mg capsule PO SCH ×2 (09:29→20:43)
[2017-06-21] MEDS: aspirin 81mg tab.chew PO SCH (09:29)
[2017-06-21] MEDS: multivitamins, therapeutics tablet PO SCH (09:30)
[2017-06-21] MEDS: metroNIDAZOLE 500mg tablet PO SCH ×2 (09:30→20:43)
[2017-06-21] MEDS: docusate sod 100mg capsule PO SCH ×2 (09:30→20:43)
[2017-06-21] MEDS: lactobacillus rhamnosus 10,000 MMU CELLS/CAPSULE PO SCH ×2 (09:34→20:43)
[2017-06-21] MEDS: pantoprazole 40mg Tablet.DR PO SCH (09:34)
[2017-06-21] MEDS: nicotine 7mg patch - 24hr TD SCH (09:40)
[2017-06-21 09:49] LABS: BASOPHILS # (AUTO) 0.1 X10'3 (0-0.2); BASOPHILS % (AUTO) 0.7 % (0-1); EOSINOPHILS % (AUTO) 0 % (0-6); HEMATOCRIT 26.8 % (42.0-52.0); HEMOGLOBIN 8.5 g/dl (14.0-17.9); LYMPHOCYTES # (AUTO) 1.3 X10'3 (1.1-4.8); LYMPHOCYTES % (AUTO) 12.6 % (21-51); MEAN CORPUSCULAR HEMOGLOBIN 25.7 PG (27.0-31.0); MEAN CORPUSCULAR HGB CONC 31.7 % (33.0-36.5); MEAN CORPUSCULAR VOLUME 81.1 FL (78-98); MEAN PLATELET VOLUME 8.3 FL (7.4-10.4); MONOCYTES # (AUTO) 0.8 X10'3 (0-0.9); MONOCYTES % (AUTO) 8.1 % (2-12); NEUTROPHILS % (AUTO) 78.6 % (42-75); PLATELET COUNT 328 X10'3 (140-440); RED BLOOD COUNT 3.31 X10'6 (4.70-6.10); RED CELL DISTRIBUTION WIDTH 20.1 % (11.5-14.5); WHITE BLOOD COUNT 10.2 X10'3 (4.5-11.0)
[2017-06-21 11:00] VITALS: BP 102/49
[2017-06-21] MEDS: cefepime 1GM/100ML NS ADD-VANTAGE BAG IV SCH (13:35)
[2017-06-21 20:00] VITALS: BP 147/70
[2017-06-21] MEDS: sennosides/docusate sodium tablet PO SCH (20:43)
[2017-06-21 23:45] VITALS: BP 145/67
[2017-06-22] MEDS: VANCOMYCIN LEVEL IV SCH (03:00)
[2017-06-22 06:01] LABS: ALBUMIN 1.8 G/DL (3.4-5.0); ANION GAP 9 (8-16); BLOOD UREA NITROGEN 27 MG/DL (7-18); BUN/CREATININE RATIO 6.7 (5.4-32.0); CALCIUM 8.5 MG/DL (8.5-10.1); CHLORIDE 100 MMOL/L (99-107); CREATININE 4.04 MG/DL (0.60-1.10); GLUCOSE 114 MG/DL (70-104); SODIUM 137 MMOL/L (135-145); TOTAL CARBON DIOXIDE 28.1 MMOL/L (24-32); VANCOMYCIN,RANDOM 22.6 UG/ML; eGFR 18 ML/MIN
[2017-06-22 07:07] VITALS: BP 146/52
[2017-06-22] MEDS: K and/or MAG REPLACEMENT MC SCH (08:00)
[2017-06-22] MEDS: aspirin 81mg tab.chew PO SCH (09:12)
[2017-06-22] MEDS: cefepime 1GM/100ML NS ADD-VANTAGE BAG IV SCH (09:12)
[2017-06-22] MEDS: clopidogrel 75mg tablet PO SCH (09:13)
[2017-06-22] MEDS: isosorbide mononitrate 30mg tab.SR.24H PO SCH (09:13)
[2017-06-22] MEDS: tamsulosin 0.4mg capsule PO SCH (09:13)
[2017-06-22] MEDS: ferrous sulfate 325mg tablet PO SCH (09:13)
[2017-06-22] MEDS: docusate sod 100mg capsule PO SCH ×2 (09:13→21:14)
[2017-06-22] MEDS: pantoprazole 40mg Tablet.DR PO SCH (09:13)
[2017-06-22] MEDS: atorvastatin 10mg tablet PO SCH (09:13)
[2017-06-22] MEDS: pregabalin 25mg capsule PO SCH ×2 (09:13→21:14)
[2017-06-22] MEDS: metroNIDAZOLE 500mg tablet PO SCH ×2 (09:13→21:13)
[2017-06-22] MEDS: lactobacillus rhamnosus 10,000 MMU CELLS/CAPSULE PO SCH ×2 (09:14→21:14)
[2017-06-22] MEDS: carvedilol 6.25mg tablet PO SCH ×2 (09:14→21:13)
[2017-06-22] MEDS: multivitamins, therapeutics tablet PO SCH (09:14)
[2017-06-22] MEDS: nicotine 7mg patch - 24hr TD SCH (09:29)
[2017-06-22] MEDS ORDERED: vancomycin/NS 1 GM ADD-VANTAGE 250 ML IV PRN (10:00)
[2017-06-22 10:31] LABS: BASOPHILS % (AUTO) 0.2 % (0-1); EOSINOPHILS # (AUTO) 0.6 X10'3 (0-0.9); EOSINOPHILS % (AUTO) 6.5 % (0-6); HEMATOCRIT 28.3 % (42.0-52.0); HEMOGLOBIN 9.3 g/dl (14.0-17.9); LYMPHOCYTES # (AUTO) 1.1 X10'3 (1.1-4.8); LYMPHOCYTES % (AUTO) 12.2 % (21-51); MEAN CORPUSCULAR HEMOGLOBIN 25.8 PG (27.0-31.0); MEAN CORPUSCULAR HGB CONC 32.7 % (33.0-36.5); MEAN PLATELET VOLUME 7.7 FL (7.4-10.4); MONOCYTES # (AUTO) 0.9 X10'3 (0-0.9); MONOCYTES % (AUTO) 9.4 % (2-12); NEUTROPHILS # (AUTO) 6.6 X10'3 (1.8-7.7); NEUTROPHILS % (AUTO) 71.7 % (42-75); PLATELET COUNT 340 X10'3 (140-440); RED BLOOD COUNT 3.59 X10'6 (4.70-6.10); RED CELL DISTRIBUTION WIDTH 20.5 % (11.5-14.5); WHITE BLOOD COUNT 9.3 X10'3 (4.5-11.0)
[2017-06-22 11:44] VITALS: BP 125/46
[2017-06-22] MEDS: HYDROcodone/acetaminophen 5mg/325mg tablet PO PRN (12:07)
[2017-06-22] MEDS: NUT.TX.GLUC.INTOLER,LAC-FR,REG (BOOST GLUCOSE CONTROL) 237 ML PO SCH ×2 (13:00→18:00)
[2017-06-22 19:15] VITALS: BP 130/45
[2017-06-22] MEDS: sennosides/docusate sodium tablet PO SCH (21:13)
[2017-06-22 23:50] VITALS: BP 142/50
[2017-06-23] MEDS: HYDROcodone/acetaminophen 5mg/325mg tablet PO PRN (00:12)
[2017-06-23] MEDS: VANCOMYCIN LEVEL IV SCH (03:00)
[2017-06-23 07:00] VITALS: BP 140/53
[2017-06-23 07:10] LABS: ALBUMIN 1.8 G/DL (3.4-5.0); ANION GAP 9 (8-16); BLOOD UREA NITROGEN 40 MG/DL (7-18); BUN/CREATININE RATIO 7.7 (5.4-32.0); CALCIUM 8.6 MG/DL (8.5-10.1); CHLORIDE 100 MMOL/L (99-107); CREATININE 5.22 MG/DL (0.60-1.10); GLUCOSE 114 MG/DL (70-104); POTASSIUM 4.3 MMOL/L (3.5-5.1); SODIUM 137 MMOL/L (135-145); TOTAL CARBON DIOXIDE 27.9 MMOL/L (24-32); VANCOMYCIN,RANDOM 21.9 UG/ML; eGFR 13 ML/MIN
[2017-06-23] MEDS ORDERED: heparin 1,000unit/ml 10ml vial 10 ML IV ONE (08:00)
[2017-06-23] MEDS: K and/or MAG REPLACEMENT MC SCH (08:00)
[2017-06-23] MEDS ORDERED: normal saline 1000ml 250 ML IV PRN (08:00)
[2017-06-23] MEDS ORDERED: epoetin 20,000 units/ml inj IV ONE (08:00)
[2017-06-23] MEDS: NUT.TX.GLUC.INTOLER,LAC-FR,REG (BOOST GLUCOSE CONTROL) 237 ML PO SCH ×3 (08:00→20:13)
[2017-06-23] MEDS ORDERED: heparin 1,000 units/ml 10ml inj HE ONE ×2 (08:00)
[2017-06-23] MEDS: tamsulosin 0.4mg capsule PO SCH (08:29)
[2017-06-23] MEDS: atorvastatin 10mg tablet PO SCH (08:29)
[2017-06-23] MEDS: isosorbide mononitrate 30mg tab.SR.24H PO SCH (08:29)
[2017-06-23] MEDS: aspirin 81mg tab.chew PO SCH (08:29)
[2017-06-23] MEDS: metroNIDAZOLE 500mg tablet PO SCH ×2 (08:29→20:09)
[2017-06-23] MEDS: clopidogrel 75mg tablet PO SCH (08:29)
[2017-06-23] MEDS: multivitamins, therapeutics tablet PO SCH (08:29)
[2017-06-23] MEDS: pregabalin 25mg capsule PO SCH ×2 (08:29→22:52)
[2017-06-23] MEDS: carvedilol 6.25mg tablet PO SCH ×2 (08:30→22:51)
[2017-06-23] MEDS: pantoprazole 40mg Tablet.DR PO SCH (08:30)
[2017-06-23] MEDS: cefepime 1GM/100ML NS ADD-VANTAGE BAG IV SCH (08:30)
[2017-06-23] MEDS: docusate sod 100mg capsule PO SCH ×2 (08:30→20:09)
[2017-06-23] MEDS: ferrous sulfate 325mg tablet PO SCH (08:30)
[2017-06-23] MEDS: lactobacillus rhamnosus 10,000 MMU CELLS/CAPSULE PO SCH ×2 (08:30→20:09)
[2017-06-23] MEDS: nicotine 7mg patch - 24hr TD SCH (08:33)
[2017-06-23 11:00] VITALS: BP 117/44
[2017-06-23 20:00] VITALS: BP 133/54
[2017-06-23] MEDS: sennosides/docusate sodium tablet PO SCH (20:13)
[2017-06-24] MEDS: VANCOMYCIN LEVEL IV SCH (03:00)
[2017-06-24 05:47] LABS: BASOPHILS % (AUTO) 0.3 % (0-1); EOSINOPHILS # (AUTO) 0.4 X10'3 (0-0.9); EOSINOPHILS % (AUTO) 4.7 % (0-6); HEMATOCRIT 26.2 % (42.0-52.0); HEMOGLOBIN 8.4 g/dl (14.0-17.9); LYMPHOCYTES # (AUTO) 1.3 X10'3 (1.1-4.8); LYMPHOCYTES % (AUTO) 13.9 % (21-51); MEAN CORPUSCULAR HEMOGLOBIN 25.8 PG (27.0-31.0); MEAN CORPUSCULAR HGB CONC 32.1 % (33.0-36.5); MEAN CORPUSCULAR VOLUME 80.5 FL (78-98); MEAN PLATELET VOLUME 8.3 FL (7.4-10.4); MONOCYTES # (AUTO) 0.9 X10'3 (0-0.9); MONOCYTES % (AUTO) 10.1 % (2-12); NEUTROPHILS # (AUTO) 6.5 X10'3 (1.8-7.7); PLATELET COUNT 346 X10'3 (140-440); RED BLOOD COUNT 3.26 X10'6 (4.70-6.10); RED CELL DISTRIBUTION WIDTH 20.5 % (11.5-14.5); WHITE BLOOD COUNT 9.1 X10'3 (4.5-11.0)
[2017-06-24 06:31] LABS: ALBUMIN 1.8 G/DL (3.4-5.0); ANION GAP 9 (8-16); BLOOD UREA NITROGEN 23 MG/DL (7-18); BUN/CREATININE RATIO 6.9 (5.4-32.0); CALCIUM 8.6 MG/DL (8.5-10.1); CHLORIDE 98 MMOL/L (99-107); CREATININE 3.35 MG/DL (0.60-1.10); GLUCOSE 126 MG/DL (70-104); SODIUM 137 MMOL/L (135-145); TOTAL CARBON DIOXIDE 29.6 MMOL/L (24-32); VANCOMYCIN,RANDOM 16.5 UG/ML; eGFR 22 ML/MIN
[2017-06-24 07:14] VITALS: BP 150/57
[2017-06-24] MEDS: cefepime 1GM/100ML NS ADD-VANTAGE BAG IV SCH (07:59)
[2017-06-24] MEDS: clopidogrel 75mg tablet PO SCH (08:00)
[2017-06-24] MEDS: tamsulosin 0.4mg capsule PO SCH (08:00)
[2017-06-24] MEDS: ferrous sulfate 325mg tablet PO SCH (08:00)
[2017-06-24] MEDS: atorvastatin 10mg tablet PO SCH (08:00)
[2017-06-24] MEDS: docusate sod 100mg capsule PO SCH ×2 (08:00→21:50)
[2017-06-24] MEDS: carvedilol 6.25mg tablet PO SCH ×2 (08:00→21:51)
[2017-06-24] MEDS: K and/or MAG REPLACEMENT MC SCH (08:00)
[2017-06-24] MEDS: nicotine 7mg patch - 24hr TD SCH (08:00)
[2017-06-24] MEDS: multivitamins, therapeutics tablet PO SCH (08:00)
[2017-06-24] MEDS: pantoprazole 40mg Tablet.DR PO SCH (08:00)
[2017-06-24] MEDS: aspirin 81mg tab.chew PO SCH (08:00)
[2017-06-24] MEDS: pregabalin 25mg capsule PO SCH ×2 (08:00→21:51)
[2017-06-24] MEDS: isosorbide mononitrate 30mg tab.SR.24H PO SCH (08:00)
[2017-06-24] MEDS: NUT.TX.GLUC.INTOLER,LAC-FR,REG (BOOST GLUCOSE CONTROL) 237 ML PO SCH ×3 (08:00→18:00)
[2017-06-24] MEDS: lactobacillus rhamnosus 10,000 MMU CELLS/CAPSULE PO SCH ×2 (08:00→21:50)
[2017-06-24] MEDS: metroNIDAZOLE 500mg tablet PO SCH ×2 (09:20→21:51)
[2017-06-24] MEDS: HYDROcodone/acetaminophen 5mg/325mg tablet PO PRN ×3 (09:22→21:50)
[2017-06-24 11:00] VITALS: BP 135/57
[2017-06-24 19:30] VITALS: BP 148/70
[2017-06-24] MEDS: sennosides/docusate sodium tablet PO SCH (21:50)
[2017-06-24 23:30] VITALS: BP 146/63
[2017-06-25] MEDS: VANCOMYCIN LEVEL IV SCH (03:00)
[2017-06-25 07:51] VITALS: BP 130/53
[2017-06-25] MEDS: K and/or MAG REPLACEMENT MC SCH (08:00)
[2017-06-25] MEDS: NUT.TX.GLUC.INTOLER,LAC-FR,REG (BOOST GLUCOSE CONTROL) 237 ML PO SCH ×3 (08:00→21:35)
[2017-06-25 08:46] LABS: ALBUMIN 1.8 G/DL (3.4-5.0); ANION GAP 10 (8-16); BLOOD UREA NITROGEN 41 MG/DL (7-18); BUN/CREATININE RATIO 8.7 (5.4-32.0); CALCIUM 8.8 MG/DL (8.5-10.1); CHLORIDE 98 MMOL/L (99-107); CREATININE 4.71 MG/DL (0.60-1.10); GLUCOSE 121 MG/DL (70-104); POTASSIUM 4.3 MMOL/L (3.5-5.1); SODIUM 136 MMOL/L (135-145); TOTAL CARBON DIOXIDE 27.6 MMOL/L (24-32); VANCOMYCIN,RANDOM 15.4 UG/ML; eGFR 15 ML/MIN
[2017-06-25] MEDS: docusate sod 100mg capsule PO SCH ×2 (09:16→21:36)
[2017-06-25] MEDS: pregabalin 25mg capsule PO SCH ×2 (09:16→21:36)
[2017-06-25] MEDS: clopidogrel 75mg tablet PO SCH (09:16)
[2017-06-25] MEDS: lactobacillus rhamnosus 10,000 MMU CELLS/CAPSULE PO SCH ×2 (09:16→21:35)
[2017-06-25] MEDS: cefepime 1GM/100ML NS ADD-VANTAGE BAG IV SCH (09:16)
[2017-06-25] MEDS: carvedilol 6.25mg tablet PO SCH ×2 (09:17→21:35)
[2017-06-25] MEDS: atorvastatin 10mg tablet PO SCH (09:17)
[2017-06-25] MEDS: aspirin 81mg tab.chew PO SCH (09:17)
[2017-06-25] MEDS: metroNIDAZOLE 500mg tablet PO SCH ×2 (09:17→21:35)
[2017-06-25] MEDS: tamsulosin 0.4mg capsule PO SCH (09:17)
[2017-06-25] MEDS: ferrous sulfate 325mg tablet PO SCH (09:17)
[2017-06-25] MEDS: multivitamins, therapeutics tablet PO SCH (09:17)
[2017-06-25] MEDS: pantoprazole 40mg Tablet.DR PO SCH (09:17)
[2017-06-25] MEDS: isosorbide mononitrate 30mg tab.SR.24H PO SCH (09:17)
[2017-06-25] MEDS: nicotine 7mg patch - 24hr TD SCH (09:18)
[2017-06-25] MEDS: HYDROcodone/acetaminophen 5mg/325mg tablet PO PRN ×3 (09:18→21:35)
[2017-06-25 12:47] VITALS: BP 137/60
[2017-06-25 20:30] VITALS: BP 135/69
[2017-06-25] MEDS: sennosides/docusate sodium tablet PO SCH (21:36)
[2017-06-25 23:30] VITALS: BP 126/70
[2017-06-26] MEDS: HYDROcodone/acetaminophen 5mg/325mg tablet PO PRN ×3 (01:30→15:09)
[2017-06-26] MEDS: VANCOMYCIN LEVEL IV SCH (03:00)
[2017-06-26] MEDS ORDERED: heparin 1,000 units/ml 10ml inj HE ONE ×2 (08:00)
[2017-06-26] MEDS ORDERED: heparin 1,000unit/ml 10ml vial 10 ML IV ONE (08:00)
[2017-06-26] MEDS ORDERED: epoetin 20,000 units/ml inj IV ONE (08:00)
[2017-06-26] MEDS: K and/or MAG REPLACEMENT MC SCH (08:00)
[2017-06-26] MEDS ORDERED: albumin (human) 25% 100ml IV 100 ML IV PRN (08:00)
[2017-06-26] MEDS ORDERED: heparin 1,000 units/ml 10ml inj IV ONE (08:00)
[2017-06-26] MEDS: NUT.TX.GLUC.INTOLER,LAC-FR,REG (BOOST GLUCOSE CONTROL) 237 ML PO SCH ×3 (08:00→18:30)
[2017-06-26 08:06] VITALS: BP 138/63
[2017-06-26] MEDS ORDERED: vancomycin/NS 1 GM ADD-VANTAGE 250 ML IV ONE (08:20)
[2017-06-26] MEDS: cefepime 1GM/100ML NS ADD-VANTAGE BAG IV SCH (09:09)
[2017-06-26] MEDS: carvedilol 6.25mg tablet PO SCH ×2 (09:17→21:19)
[2017-06-26] MEDS: multivitamins, therapeutics tablet PO SCH (09:17)
[2017-06-26] MEDS: ferrous sulfate 325mg tablet PO SCH (09:17)
[2017-06-26] MEDS: lactobacillus rhamnosus 10,000 MMU CELLS/CAPSULE PO SCH ×2 (09:17→21:19)
[2017-06-26] MEDS: atorvastatin 10mg tablet PO SCH (09:17)
[2017-06-26] MEDS: clopidogrel 75mg tablet PO SCH (09:17)
[2017-06-26] MEDS: tamsulosin 0.4mg capsule PO SCH (09:17)
[2017-06-26] MEDS: isosorbide mononitrate 30mg tab.SR.24H PO SCH (09:17)
[2017-06-26] MEDS: metroNIDAZOLE 500mg tablet PO SCH ×2 (09:17→21:19)
[2017-06-26] MEDS: docusate sod 100mg capsule PO SCH ×2 (09:17→21:19)
[2017-06-26] MEDS: pregabalin 25mg capsule PO SCH ×2 (09:17→21:19)
[2017-06-26] MEDS: aspirin 81mg tab.chew PO SCH (09:17)
[2017-06-26] MEDS: nicotine 7mg patch - 24hr TD SCH (09:18)
[2017-06-26] MEDS: pantoprazole 40mg Tablet.DR PO SCH (09:21)
[2017-06-26 10:40] LABS: HEMATOCRIT 25.5 % (42.0-52.0); HEMOGLOBIN 8.3 g/dl (14.0-17.9); MEAN CORPUSCULAR HGB CONC 32.4 % (33.0-36.5); MEAN CORPUSCULAR VOLUME 80.3 FL (78-98); PLATELET COUNT 340 X10'3 (140-440); RED BLOOD COUNT 3.17 X10'6 (4.70-6.10); RED CELL DISTRIBUTION WIDTH 19.8 % (11.5-14.5); WHITE BLOOD COUNT 8.5 X10'3 (4.5-11.0)
[2017-06-26 15:12] VITALS: BP 133/54
[2017-06-26 20:00] VITALS: BP 130/56
[2017-06-26] MEDS: sennosides/docusate sodium tablet PO SCH (21:19)
[2017-06-27] VITALS: BP 128/50
[2017-06-27] MEDS: HYDROcodone/acetaminophen 5mg/325mg tablet PO PRN ×3 (02:02→11:42)
[2017-06-27] MEDS: VANCOMYCIN LEVEL IV SCH (03:00)
[2017-06-27] MEDS: cefepime 1GM/100ML NS ADD-VANTAGE BAG IV SCH (07:21)
[2017-06-27] MEDS: lactobacillus rhamnosus 10,000 MMU CELLS/CAPSULE PO SCH ×2 (07:24→20:25)
[2017-06-27] MEDS: pregabalin 25mg capsule PO SCH ×2 (07:24→20:26)
[2017-06-27] MEDS: isosorbide mononitrate 30mg tab.SR.24H PO SCH (07:24)
[2017-06-27] MEDS: pantoprazole 40mg Tablet.DR PO SCH (07:24)
[2017-06-27] MEDS: docusate sod 100mg capsule PO SCH ×2 (07:24→20:25)
[2017-06-27] MEDS: atorvastatin 10mg tablet PO SCH (07:24)
[2017-06-27] MEDS: ferrous sulfate 325mg tablet PO SCH (07:24)
[2017-06-27] MEDS: multivitamins, therapeutics tablet PO SCH (07:24)
[2017-06-27] MEDS: clopidogrel 75mg tablet PO SCH (07:25)
[2017-06-27] MEDS: metroNIDAZOLE 500mg tablet PO SCH ×2 (07:25→20:26)
[2017-06-27] MEDS: carvedilol 6.25mg tablet PO SCH ×2 (07:25→20:26)
[2017-06-27] MEDS: tamsulosin 0.4mg capsule PO SCH (07:25)
[2017-06-27 07:52] VITALS: BP 130/55
[2017-06-27] MEDS: nicotine 7mg patch - 24hr TD SCH (08:00)
[2017-06-27] MEDS: K and/or MAG REPLACEMENT MC SCH (08:00)
[2017-06-27] MEDS: NUT.TX.GLUC.INTOLER,LAC-FR,REG (BOOST GLUCOSE CONTROL) 237 ML PO SCH ×3 (08:33→20:09)
[2017-06-27] MEDS: aspirin 81mg tab.chew PO SCH (11:46)
[2017-06-27 11:56] VITALS: BP 135/57
[2017-06-27 13:43] LABS: CREATININE 4.49 MG/DL (0.60-1.10); VANCOMYCIN,RANDOM 20.7 UG/ML; eGFR 16 ML/MIN
[2017-06-27 19:00] VITALS: BP 148/91
[2017-06-27] MEDS: sennosides/docusate sodium tablet PO SCH (20:25)
[2017-06-28] VITALS: BP 131/73
[2017-06-28] MEDS: HYDROcodone/acetaminophen 5mg/325mg tablet PO PRN (00:31)
[2017-06-28 06:00] VITALS: BP 136/58
[2017-06-28] MEDS: VANCOMYCIN LEVEL IV SCH (06:18)
[2017-06-28] MEDS ORDERED: heparin 1,000unit/ml 10ml vial 10 ML IV ONE (07:27)
[2017-06-28] MEDS ORDERED: epoetin 20,000 units/ml inj IV ONE (07:30)
[2017-06-28] MEDS ORDERED: albumin (human) 25% 100ml IV 100 ML IV PRN (07:30)
[2017-06-28] MEDS ORDERED: heparin 1,000 units/ml 10ml inj IV ONE (07:30)
[2017-06-28] MEDS ORDERED: heparin 1,000 units/ml 10ml inj HE ONE ×2 (07:35)
[2017-06-28] MEDS: carvedilol 6.25mg tablet PO SCH ×2 (08:00→21:17)
[2017-06-28] MEDS: isosorbide mononitrate 30mg tab.SR.24H PO SCH (08:00)
[2017-06-28] MEDS: NUT.TX.GLUC.INTOLER,LAC-FR,REG (BOOST GLUCOSE CONTROL) 237 ML PO SCH ×3 (08:00→21:15)
[2017-06-28] MEDS: K and/or MAG REPLACEMENT MC SCH (08:00)
[2017-06-28] MEDS: tamsulosin 0.4mg capsule PO SCH (08:21)
[2017-06-28] MEDS: ferrous sulfate 325mg tablet PO SCH (08:21)
[2017-06-28] MEDS: lactobacillus rhamnosus 10,000 MMU CELLS/CAPSULE PO SCH ×2 (08:21→21:17)
[2017-06-28] MEDS: clopidogrel 75mg tablet PO SCH (08:21)
[2017-06-28] MEDS: pantoprazole 40mg Tablet.DR PO SCH (08:21)
[2017-06-28] MEDS: docusate sod 100mg capsule PO SCH ×2 (08:21→21:15)
[2017-06-28] MEDS: aspirin 81mg tab.chew PO SCH (08:21)
[2017-06-28] MEDS: metroNIDAZOLE 500mg tablet PO SCH ×2 (08:21→21:17)
[2017-06-28] MEDS: pregabalin 25mg capsule PO SCH ×2 (08:21→21:16)
[2017-06-28] MEDS: atorvastatin 10mg tablet PO SCH (08:21)
[2017-06-28] MEDS: multivitamins, therapeutics tablet PO SCH (08:21)
[2017-06-28] MEDS: cefepime 1GM/100ML NS ADD-VANTAGE BAG IV SCH (08:22)
[2017-06-28] MEDS: nicotine 7mg patch - 24hr TD SCH (08:24)
[2017-06-28 09:10] LABS: HEMATOCRIT 27.8 % (42.0-52.0); MEAN CORPUSCULAR HEMOGLOBIN 25.7 PG (27.0-31.0); MEAN CORPUSCULAR HGB CONC 32.3 % (33.0-36.5); MEAN CORPUSCULAR VOLUME 79.6 FL (78-98); MEAN PLATELET VOLUME 8.3 FL (7.4-10.4); PLATELET COUNT 407 X10'3 (140-440); RED CELL DISTRIBUTION WIDTH 19.9 % (11.5-14.5); WHITE BLOOD COUNT 11.4 X10'3 (4.5-11.0)
[2017-06-28 12:00] VITALS: BP 94/42
[2017-06-28 20:00] VITALS: BP 127/63
[2017-06-28] MEDS: sennosides/docusate sodium tablet PO SCH (21:17)
[2017-06-29] VITALS: BP 145/66
[2017-06-29] MEDS: HYDROcodone/acetaminophen 5mg/325mg tablet PO PRN ×3 (05:48→20:25)
[2017-06-29] MEDS: VANCOMYCIN LEVEL IV SCH (06:24)
[2017-06-29 07:00] VITALS: BP 128/60
[2017-06-29] MEDS ORDERED: vancomycin/NS 1 GM ADD-VANTAGE 250 ML IV ONE (08:00)
[2017-06-29] MEDS: K and/or MAG REPLACEMENT MC SCH (08:00)
[2017-06-29] MEDS: ferrous sulfate 325mg tablet PO SCH (08:07)
[2017-06-29] MEDS: docusate sod 100mg capsule PO SCH ×2 (08:07→20:27)
[2017-06-29] MEDS: pantoprazole 40mg Tablet.DR PO SCH (08:07)
[2017-06-29] MEDS: multivitamins, therapeutics tablet PO SCH (08:07)
[2017-06-29] MEDS: pregabalin 25mg capsule PO SCH ×2 (08:09→20:27)
[2017-06-29] MEDS: lactobacillus rhamnosus 10,000 MMU CELLS/CAPSULE PO SCH ×2 (08:09→20:23)
[2017-06-29] MEDS: tamsulosin 0.4mg capsule PO SCH (08:09)
[2017-06-29] MEDS: clopidogrel 75mg tablet PO SCH (08:09)
[2017-06-29] MEDS: aspirin 81mg tab.chew PO SCH (08:10)
[2017-06-29] MEDS: metroNIDAZOLE 500mg tablet PO SCH ×2 (08:11→20:26)
[2017-06-29] MEDS: isosorbide mononitrate 30mg tab.SR.24H PO SCH (08:11)
[2017-06-29] MEDS: atorvastatin 10mg tablet PO SCH (08:11)
[2017-06-29] MEDS: carvedilol 6.25mg tablet PO SCH ×2 (08:12→20:28)
[2017-06-29] MEDS: NUT.TX.GLUC.INTOLER,LAC-FR,REG (BOOST GLUCOSE CONTROL) 237 ML PO SCH ×3 (08:13→18:46)
[2017-06-29] MEDS: nicotine 7mg patch - 24hr TD SCH (08:13)
[2017-06-29] MEDS: cefepime 1GM/100ML NS ADD-VANTAGE BAG IV SCH (08:14)
[2017-06-29 11:00] VITALS: BP 129/58
[2017-06-29 20:00] VITALS: BP 124/56
[2017-06-29] MEDS: sennosides/docusate sodium tablet PO SCH (20:26)
[2017-06-30] VITALS: BP 133/57
[2017-06-30] MEDS: VANCOMYCIN LEVEL IV SCH (03:00)
[2017-06-30] MEDS: HYDROcodone/acetaminophen 5mg/325mg tablet PO PRN ×3 (05:03→19:23)
[2017-06-30 05:36] LABS: ALBUMIN 1.9 G/DL (3.4-5.0); ANION GAP 11 (8-16); BLOOD UREA NITROGEN 49 MG/DL (7-18); BUN/CREATININE RATIO 9.6 (5.4-32.0); CALCIUM 9.2 MG/DL (8.5-10.1); CHLORIDE 99 MMOL/L (99-107); CREATININE 5.12 MG/DL (0.60-1.10); GLUCOSE 121 MG/DL (70-104); POTASSIUM 5.2 MMOL/L (3.5-5.1); SODIUM 135 MMOL/L (135-145); TOTAL CARBON DIOXIDE 25.2 MMOL/L (24-32); VANCOMYCIN,RANDOM 28.3 UG/ML; eGFR 14 ML/MIN
[2017-06-30 08:00] VITALS: BP 142/54
[2017-06-30] MEDS: K and/or MAG REPLACEMENT MC SCH (08:00)
[2017-06-30] MEDS: cefepime 1GM/100ML NS ADD-VANTAGE BAG IV SCH (08:38)
[2017-06-30] MEDS: carvedilol 6.25mg tablet PO SCH ×2 (08:38→19:27)
[2017-06-30] MEDS: metroNIDAZOLE 500mg tablet PO SCH ×2 (08:38→19:23)
[2017-06-30] MEDS: lactobacillus rhamnosus 10,000 MMU CELLS/CAPSULE PO SCH ×2 (08:38→19:23)
[2017-06-30] MEDS: tamsulosin 0.4mg capsule PO SCH (08:38)
[2017-06-30] MEDS: atorvastatin 10mg tablet PO SCH (08:38)
[2017-06-30] MEDS: pregabalin 25mg capsule PO SCH ×2 (08:38→19:23)
[2017-06-30] MEDS: isosorbide mononitrate 30mg tab.SR.24H PO SCH (08:38)
[2017-06-30] MEDS: aspirin 81mg tab.chew PO SCH (08:38)
[2017-06-30] MEDS: multivitamins, therapeutics tablet PO SCH (08:39)
[2017-06-30] MEDS: pantoprazole 40mg Tablet.DR PO SCH (08:39)
[2017-06-30] MEDS: clopidogrel 75mg tablet PO SCH (08:39)
[2017-06-30] MEDS: docusate sod 100mg capsule PO SCH ×2 (08:39→19:22)
[2017-06-30] MEDS: ferrous sulfate 325mg tablet PO SCH (08:39)
[2017-06-30] MEDS: NUT.TX.GLUC.INTOLER,LAC-FR,REG (BOOST GLUCOSE CONTROL) 237 ML PO SCH ×3 (08:48→19:07)
[2017-06-30] MEDS ORDERED: heparin 1,000unit/ml 10ml vial 10 ML IV ONE (09:12)
[2017-06-30] MEDS ORDERED: albumin (human) 25% 100ml IV 100 ML IV PRN (09:15)
[2017-06-30] MEDS ORDERED: heparin 1,000 units/ml 10ml inj IV ONE (09:15)
[2017-06-30] MEDS ORDERED: epoetin 20,000 units/ml inj IV ONE (09:15)
[2017-06-30] MEDS ORDERED: heparin 1,000 units/ml 10ml inj HE ONE ×2 (09:20)
[2017-06-30 10:31] LABS: BASOPHILS % (AUTO) 0.4 % (0-1); EOSINOPHILS # (AUTO) 0.7 X10'3 (0-0.9); EOSINOPHILS % (AUTO) 6.5 % (0-6); HEMATOCRIT 25.2 % (42.0-52.0); LYMPHOCYTES # (AUTO) 1.4 X10'3 (1.1-4.8); LYMPHOCYTES % (AUTO) 13.6 % (21-51); MEAN CORPUSCULAR HEMOGLOBIN 25.3 PG (27.0-31.0); MEAN CORPUSCULAR HGB CONC 31.8 % (33.0-36.5); MEAN CORPUSCULAR VOLUME 79.6 FL (78-98); MEAN PLATELET VOLUME 7.9 FL (7.4-10.4); MONOCYTES # (AUTO) 1.1 X10'3 (0-0.9); MONOCYTES % (AUTO) 10.6 % (2-12); NEUTROPHILS # (AUTO) 7.2 X10'3 (1.8-7.7); NEUTROPHILS % (AUTO) 68.9 % (42-75); PLATELET COUNT 431 X10'3 (140-440); RED BLOOD COUNT 3.16 X10'6 (4.70-6.10); RED CELL DISTRIBUTION WIDTH 20.8 % (11.5-14.5); WHITE BLOOD COUNT 10.5 X10'3 (4.5-11.0)
[2017-06-30 12:00] VITALS: BP 122/46
[2017-06-30] MEDS: sennosides/docusate sodium tablet PO SCH (19:23)
[2017-06-30 20:00] VITALS: BP 133/61
[2017-07-01] VITALS: BP 136/67
[2017-07-01] MEDS: VANCOMYCIN LEVEL IV SCH (06:15)
[2017-07-01] MEDS: K and/or MAG REPLACEMENT MC SCH (08:00)
[2017-07-01] MEDS: NUT.TX.GLUC.INTOLER,LAC-FR,REG (BOOST GLUCOSE CONTROL) 237 ML PO SCH ×3 (08:00→18:00)
[2017-07-01] MEDS: HYDROcodone/acetaminophen 5mg/325mg tablet PO PRN (08:57)
[2017-07-01] MEDS: cefepime 1GM/100ML NS ADD-VANTAGE BAG IV SCH (08:58)
[2017-07-01] MEDS: aspirin 81mg tab.chew PO SCH (08:59)
[2017-07-01] MEDS: atorvastatin 10mg tablet PO SCH (08:59)
[2017-07-01] MEDS: clopidogrel 75mg tablet PO SCH (08:59)
[2017-07-01] MEDS: multivitamins, therapeutics tablet PO SCH (08:59)
[2017-07-01] MEDS: pregabalin 25mg capsule PO SCH ×2 (08:59→21:39)
[2017-07-01] MEDS: docusate sod 100mg capsule PO SCH ×2 (08:59→21:38)
[2017-07-01] MEDS: metroNIDAZOLE 500mg tablet PO SCH ×2 (08:59→21:39)
[2017-07-01] MEDS: ferrous sulfate 325mg tablet PO SCH (08:59)
[2017-07-01] MEDS: tamsulosin 0.4mg capsule PO SCH (08:59)
[2017-07-01] MEDS: carvedilol 6.25mg tablet PO SCH ×2 (08:59→21:38)
[2017-07-01] MEDS: isosorbide mononitrate 30mg tab.SR.24H PO SCH (08:59)
[2017-07-01] MEDS: lactobacillus rhamnosus 10,000 MMU CELLS/CAPSULE PO SCH ×2 (08:59→21:38)
[2017-07-01] MEDS: pantoprazole 40mg Tablet.DR PO SCH (09:02)
[2017-07-01 18:00] VITALS: BP 128/65
[2017-07-01 21:35] VITALS: BP 128/78
[2017-07-01] MEDS: sennosides/docusate sodium tablet PO SCH (21:39)
[2017-07-02] VITALS: BP 139/69
[2017-07-02] MEDS: VANCOMYCIN LEVEL IV SCH (03:00)
[2017-07-02] MEDS: HYDROcodone/acetaminophen 5mg/325mg tablet PO PRN ×4 (03:17→23:30)
[2017-07-02 06:06] LABS: VANCOMYCIN,RANDOM 20.1 UG/ML
[2017-07-02] MEDS: K and/or MAG REPLACEMENT MC SCH (08:00)
[2017-07-02] MEDS: NUT.TX.GLUC.INTOLER,LAC-FR,REG (BOOST GLUCOSE CONTROL) 237 ML PO SCH ×3 (08:00→17:52)
[2017-07-02] MEDS: isosorbide mononitrate 30mg tab.SR.24H PO SCH (09:03)
[2017-07-02] MEDS: aspirin 81mg tab.chew PO SCH (09:03)
[2017-07-02] MEDS: carvedilol 6.25mg tablet PO SCH ×2 (09:03→22:06)
[2017-07-02] MEDS: lactobacillus rhamnosus 10,000 MMU CELLS/CAPSULE PO SCH ×2 (09:03→23:28)
[2017-07-02] MEDS: tamsulosin 0.4mg capsule PO SCH (09:03)
[2017-07-02] MEDS: clopidogrel 75mg tablet PO SCH (09:03)
[2017-07-02] MEDS: cefepime 1GM/100ML NS ADD-VANTAGE BAG IV SCH (09:04)
[2017-07-02] MEDS: ferrous sulfate 325mg tablet PO SCH (09:04)
[2017-07-02] MEDS: atorvastatin 10mg tablet PO SCH (09:04)
[2017-07-02] MEDS: docusate sod 100mg capsule PO SCH ×2 (09:04→22:06)
[2017-07-02] MEDS: multivitamins, therapeutics tablet PO SCH (09:04)
[2017-07-02] MEDS: pregabalin 25mg capsule PO SCH ×2 (09:04→22:06)
[2017-07-02] MEDS: metroNIDAZOLE 500mg tablet PO SCH ×2 (09:04→22:06)
[2017-07-02] MEDS: pantoprazole 40mg Tablet.DR PO SCH (09:06)
[2017-07-02 10:16] LABS: C-REACTIVE PROTEIN 1.35 MG/DL (0.0-0.5)
[2017-07-02 18:00] VITALS: BP 123/51
[2017-07-02] MEDS: sennosides/docusate sodium tablet PO SCH (22:06)
[2017-07-03] VITALS: BP 135/64
[2017-07-03] MEDS: VANCOMYCIN LEVEL IV SCH (03:00)
[2017-07-03] MEDS: HYDROcodone/acetaminophen 5mg/325mg tablet PO PRN ×3 (05:17→20:00)
[2017-07-03] MEDS: ferrous sulfate 325mg tablet PO SCH (07:33)
[2017-07-03] MEDS: multivitamins, therapeutics tablet PO SCH (07:33)
[2017-07-03] MEDS: pregabalin 25mg capsule PO SCH ×2 (07:33→19:54)
[2017-07-03] MEDS: clopidogrel 75mg tablet PO SCH (07:33)
[2017-07-03] MEDS: cefepime 1GM/100ML NS ADD-VANTAGE BAG IV SCH (07:33)
[2017-07-03] MEDS: lactobacillus rhamnosus 10,000 MMU CELLS/CAPSULE PO SCH ×2 (07:33→19:54)
[2017-07-03] MEDS: pantoprazole 40mg Tablet.DR PO SCH (07:33)
[2017-07-03] MEDS: docusate sod 100mg capsule PO SCH ×2 (07:33→19:54)
[2017-07-03] MEDS: atorvastatin 10mg tablet PO SCH (07:33)
[2017-07-03] MEDS: metroNIDAZOLE 500mg tablet PO SCH ×2 (07:33→19:54)
[2017-07-03] MEDS: carvedilol 6.25mg tablet PO SCH ×2 (07:34→19:54)
[2017-07-03] MEDS: tamsulosin 0.4mg capsule PO SCH (07:34)
[2017-07-03] MEDS: isosorbide mononitrate 30mg tab.SR.24H PO SCH (07:34)
[2017-07-03] MEDS: NUT.TX.GLUC.INTOLER,LAC-FR,REG (BOOST GLUCOSE CONTROL) 237 ML PO SCH ×3 (07:37→17:49)
[2017-07-03] MEDS: aspirin 81mg tab.chew PO SCH (07:38)
[2017-07-03 08:00] VITALS: BP 148/71
[2017-07-03] MEDS: K and/or MAG REPLACEMENT MC SCH (08:00)
[2017-07-03] MEDS ORDERED: normal saline 1000ml 250 ML IV PRN (11:32)
[2017-07-03] MEDS ORDERED: heparin 1,000unit/ml 10ml vial 10 ML IV ONE (11:32)
[2017-07-03] MEDS ORDERED: epoetin 20,000 units/ml inj IV ONE (11:35)
[2017-07-03] MEDS ORDERED: heparin 1,000 units/ml 10ml inj HE ONE ×2 (11:40)
[2017-07-03 12:00] VITALS: BP 127/50
[2017-07-03 12:07] LABS: BASOPHILS # (AUTO) 0.1 X10'3 (0-0.2); BASOPHILS % (AUTO) 1.7 % (0-1); EOSINOPHILS # (AUTO) 0.8 X10'3 (0-0.9); EOSINOPHILS % (AUTO) 8.7 % (0-6); HEMATOCRIT 27.1 % (42.0-52.0); HEMOGLOBIN 8.6 g/dl (14.0-17.9); LYMPHOCYTES # (AUTO) 1.2 X10'3 (1.1-4.8); LYMPHOCYTES % (AUTO) 14.1 % (21-51); MEAN CORPUSCULAR HEMOGLOBIN 25.5 PG (27.0-31.0); MEAN CORPUSCULAR HGB CONC 31.7 % (33.0-36.5); MEAN CORPUSCULAR VOLUME 80.3 FL (78-98); MEAN PLATELET VOLUME 8.1 FL (7.4-10.4); MONOCYTES # (AUTO) 1.1 X10'3 (0-0.9); MONOCYTES % (AUTO) 12.1 % (2-12); NEUTROPHILS # (AUTO) 5.6 X10'3 (1.8-7.7); NEUTROPHILS % (AUTO) 63.4 % (42-75); PLATELET COUNT 428 X10'3 (140-440); RED BLOOD COUNT 3.37 X10'6 (4.70-6.10); RED CELL DISTRIBUTION WIDTH 21.3 % (11.5-14.5); WHITE BLOOD COUNT 8.9 X10'3 (4.5-11.0)
[2017-07-03 13:25] LABS: HBSAG SCREEN Negative (Negative)
[2017-07-03 19:00] VITALS: BP 147/75
[2017-07-03] MEDS: sennosides/docusate sodium tablet PO SCH (19:54)
[2017-07-04] VITALS: BP 142/84
[2017-07-04] MEDS: VANCOMYCIN LEVEL IV SCH (03:00)
[2017-07-04] MEDS: HYDROcodone/acetaminophen 5mg/325mg tablet PO PRN ×2 (03:41→08:01)
[2017-07-04 05:43] LABS: ALBUMIN 2.1 G/DL (3.4-5.0); ANION GAP 10 (8-16); BLOOD UREA NITROGEN 38 MG/DL (7-18); BUN/CREATININE RATIO 9.6 (5.4-32.0); CHLORIDE 99 MMOL/L (99-107); CREATININE 3.95 MG/DL (0.60-1.10); GLUCOSE 112 MG/DL (70-104); POTASSIUM 4.6 MMOL/L (3.5-5.1); SODIUM 136 MMOL/L (135-145); TOTAL CARBON DIOXIDE 26.9 MMOL/L (24-32); VANCOMYCIN,RANDOM 14.4 UG/ML; eGFR 18 ML/MIN
[2017-07-04 07:00] VITALS: BP 151/64
[2017-07-04] MEDS: cefepime 1GM/100ML NS ADD-VANTAGE BAG IV SCH (07:59)
[2017-07-04] MEDS: NUT.TX.GLUC.INTOLER,LAC-FR,REG (BOOST GLUCOSE CONTROL) 237 ML PO SCH ×3 (08:00→18:00)
[2017-07-04] MEDS: carvedilol 6.25mg tablet PO SCH ×2 (08:00→20:16)
[2017-07-04] MEDS ORDERED: vancomycin/NS 1 GM ADD-VANTAGE 250 ML IV PRN (08:00)
[2017-07-04] MEDS: K and/or MAG REPLACEMENT MC SCH (08:00)
[2017-07-04] MEDS: docusate sod 100mg capsule PO SCH ×2 (08:00→20:16)
[2017-07-04] MEDS: clopidogrel 75mg tablet PO SCH (08:00)
[2017-07-04] MEDS: aspirin 81mg tab.chew PO SCH (08:01)
[2017-07-04] MEDS: atorvastatin 10mg tablet PO SCH (08:01)
[2017-07-04] MEDS ORDERED: vancomycin/NS 1 GM ADD-VANTAGE 250 ML IV ONE (08:20)
[2017-07-04] MEDS: lactobacillus rhamnosus 10,000 MMU CELLS/CAPSULE PO SCH ×2 (08:27→20:16)
[2017-07-04] MEDS: ferrous sulfate 325mg tablet PO SCH (08:27)
[2017-07-04] MEDS: pantoprazole 40mg Tablet.DR PO SCH (08:27)
[2017-07-04] MEDS: isosorbide mononitrate 30mg tab.SR.24H PO SCH (08:28)
[2017-07-04] MEDS: metroNIDAZOLE 500mg tablet PO SCH ×2 (08:28→20:16)
[2017-07-04] MEDS: multivitamins, therapeutics tablet PO SCH (08:28)
[2017-07-04] MEDS: pregabalin 25mg capsule PO SCH ×2 (08:28→20:17)
[2017-07-04] MEDS: tamsulosin 0.4mg capsule PO SCH (08:28)
[2017-07-04 11:00] VITALS: BP 126/46
[2017-07-04 20:00] VITALS: BP 125/54
[2017-07-04] MEDS: sennosides/docusate sodium tablet PO SCH (20:16)
[2017-07-05] VITALS: BP 139/59
[2017-07-05] MEDS: VANCOMYCIN LEVEL IV SCH (03:00)
[2017-07-05 07:00] VITALS: BP 139/65
[2017-07-05] MEDS: HYDROcodone/acetaminophen 5mg/325mg tablet PO PRN (07:09)
[2017-07-05] MEDS: K and/or MAG REPLACEMENT MC SCH (08:00)
[2017-07-05] MEDS ORDERED: heparin 1,000unit/ml 10ml vial 10 ML IV ONE (08:47)
[2017-07-05] MEDS: lactobacillus rhamnosus 10,000 MMU CELLS/CAPSULE PO SCH ×2 (08:50→20:34)
[2017-07-05] MEDS ORDERED: albumin (human) 25% 100ml IV 100 ML IV PRN (08:50)
[2017-07-05] MEDS: carvedilol 6.25mg tablet PO SCH ×2 (08:50→20:34)
[2017-07-05] MEDS ORDERED: heparin 1,000 units/ml 10ml inj IV ONE (08:50)
[2017-07-05] MEDS: tamsulosin 0.4mg capsule PO SCH (08:50)
[2017-07-05] MEDS ORDERED: epoetin 20,000 units/ml inj IV ONE (08:50)
[2017-07-05] MEDS: isosorbide mononitrate 30mg tab.SR.24H PO SCH (08:50)
[2017-07-05] MEDS: pregabalin 25mg capsule PO SCH ×2 (08:50→20:34)
[2017-07-05] MEDS: cefepime 1GM/100ML NS ADD-VANTAGE BAG IV SCH (08:50)
[2017-07-05] MEDS: NUT.TX.GLUC.INTOLER,LAC-FR,REG (BOOST GLUCOSE CONTROL) 237 ML PO SCH ×3 (08:50→20:35)
[2017-07-05] MEDS: clopidogrel 75mg tablet PO SCH (08:50)
[2017-07-05] MEDS: metroNIDAZOLE 500mg tablet PO SCH ×2 (08:50→20:34)
[2017-07-05] MEDS: multivitamins, therapeutics tablet PO SCH (08:51)
[2017-07-05] MEDS: docusate sod 100mg capsule PO SCH ×2 (08:51→20:34)
[2017-07-05] MEDS: ferrous sulfate 325mg tablet PO SCH (08:51)
[2017-07-05] MEDS: atorvastatin 10mg tablet PO SCH (08:51)
[2017-07-05] MEDS: aspirin 81mg tab.chew PO SCH (08:51)
[2017-07-05] MEDS: pantoprazole 40mg Tablet.DR PO SCH (08:52)
[2017-07-05] MEDS ORDERED: heparin 1,000 units/ml 10ml inj HE ONE ×2 (08:55)
[2017-07-05 10:23] LABS: HEMATOCRIT 26.5 % (42.0-52.0); HEMOGLOBIN 8.4 g/dl (14.0-17.9); MEAN CORPUSCULAR HEMOGLOBIN 25.1 PG (27.0-31.0); MEAN CORPUSCULAR HGB CONC 31.9 % (33.0-36.5); MEAN CORPUSCULAR VOLUME 78.9 FL (78-98); MEAN PLATELET VOLUME 7.8 FL (7.4-10.4); PLATELET COUNT 408 X10'3 (140-440); RED BLOOD COUNT 3.35 X10'6 (4.70-6.10); RED CELL DISTRIBUTION WIDTH 20.8 % (11.5-14.5); WHITE BLOOD COUNT 9.3 X10'3 (4.5-11.0)
[2017-07-05 11:00] VITALS: BP 145/64
[2017-07-05 20:00] VITALS: BP 140/64
[2017-07-05] MEDS: sennosides/docusate sodium tablet PO SCH (20:34)
[2017-07-06] VITALS: BP 141/48
[2017-07-06] MEDS: VANCOMYCIN LEVEL IV SCH ×2 (02:33→23:12)
[2017-07-06] MEDS: HYDROcodone/acetaminophen 5mg/325mg tablet PO PRN (05:47)
[2017-07-06 08:00] VITALS: BP 123/72
[2017-07-06] MEDS: K and/or MAG REPLACEMENT MC SCH (08:00)
[2017-07-06] MEDS: NUT.TX.GLUC.INTOLER,LAC-FR,REG (BOOST GLUCOSE CONTROL) 237 ML PO SCH ×3 (08:00→18:04)
[2017-07-06] MEDS: tamsulosin 0.4mg capsule PO SCH (09:55)
[2017-07-06] MEDS: lactobacillus rhamnosus 10,000 MMU CELLS/CAPSULE PO SCH ×2 (09:55→20:17)
[2017-07-06] MEDS: metroNIDAZOLE 500mg tablet PO SCH ×2 (09:55→20:17)
[2017-07-06] MEDS: aspirin 81mg tab.chew PO SCH (09:55)
[2017-07-06] MEDS: pregabalin 25mg capsule PO SCH ×2 (09:56→20:17)
[2017-07-06] MEDS: atorvastatin 10mg tablet PO SCH (09:56)
[2017-07-06] MEDS: isosorbide mononitrate 30mg tab.SR.24H PO SCH (09:56)
[2017-07-06] MEDS: ferrous sulfate 325mg tablet PO SCH (09:56)
[2017-07-06] MEDS: docusate sod 100mg capsule PO SCH ×2 (09:56→20:17)
[2017-07-06] MEDS: pantoprazole 40mg Tablet.DR PO SCH (09:56)
[2017-07-06] MEDS: multivitamins, therapeutics tablet PO SCH (09:56)
[2017-07-06] MEDS: clopidogrel 75mg tablet PO SCH (09:56)
[2017-07-06] MEDS: carvedilol 6.25mg tablet PO SCH ×2 (09:56→20:17)
[2017-07-06 11:00] VITALS: BP 145/61
[2017-07-06] MEDS: cefepime 1GM/100ML NS ADD-VANTAGE BAG IV SCH (11:13)
[2017-07-06 18:00] VITALS: BP 136/71
[2017-07-06] MEDS: sennosides/docusate sodium tablet PO SCH (20:17)
[2017-07-07] VITALS: BP_SYST 122; BP_SYST 146; BP_DIAS 61; BP_DIAS 64
[2017-07-07] MEDS: HYDROcodone/acetaminophen 5mg/325mg tablet PO PRN ×2 (00:15→06:37)
[2017-07-07 05:36] LABS: BASOPHILS % (AUTO) 0 % (0-1); EOSINOPHILS # (AUTO) 0.7 X10'3 (0-0.9); EOSINOPHILS % (AUTO) 7.5 % (0-6); HEMATOCRIT 26.5 % (42.0-52.0); HEMOGLOBIN 8.6 g/dl (14.0-17.9); LYMPHOCYTES # (AUTO) 1.7 X10'3 (1.1-4.8); MEAN CORPUSCULAR HEMOGLOBIN 25.2 PG (27.0-31.0); MEAN CORPUSCULAR HGB CONC 32.4 % (33.0-36.5); MEAN PLATELET VOLUME 8.4 FL (7.4-10.4); MONOCYTES # (AUTO) 1.2 X10'3 (0-0.9); MONOCYTES % (AUTO) 13.2 % (2-12); NEUTROPHILS # (AUTO) 5.7 X10'3 (1.8-7.7); NEUTROPHILS % (AUTO) 61.3 % (42-75); PLATELET COUNT 423 X10'3 (140-440); RED CELL DISTRIBUTION WIDTH 19.9 % (11.5-14.5); WHITE BLOOD COUNT 9.3 X10'3 (4.5-11.0)
[2017-07-07 06:24] LABS: ALANINE AMINOTRANSFERASE 15 U/L (12-78); ALBUMIN 1.9 G/DL (3.4-5.0); ALBUMIN/GLOBULIN RATIO 0.3 (1.1-1.5); ALKALINE PHOSPHATASE 232 IU/L (46-116); ANION GAP 12 (8-16); ASPARTATE AMINO TRANSFERASE 26 U/L (10-37); BILIRUBIN,TOTAL 0.7 MG/DL (0.1-1.0); BLOOD UREA NITROGEN 52 MG/DL (7-18); C-REACTIVE PROTEIN 1.46 MG/DL (0.0-0.5); CALCIUM 9.3 MG/DL (8.5-10.1); CHLORIDE 100 MMOL/L (99-107); GLUCOSE 120 MG/DL (70-104); POTASSIUM 4.8 MMOL/L (3.5-5.1); SODIUM 138 MMOL/L (135-145); TOTAL CARBON DIOXIDE 26.1 MMOL/L (24-32); TOTAL PROTEIN 8.8 G/DL (6.4-8.2); VANCOMYCIN,RANDOM 17.2 UG/ML; eGFR 13 ML/MIN
[2017-07-07 06:48] VITALS: BP 109/56
[2017-07-07 06:52] VITALS: BP 148/61
[2017-07-07] MEDS ORDERED: epoetin 20,000 units/ml inj IV ONE (08:00)
[2017-07-07] MEDS: carvedilol 6.25mg tablet PO SCH ×2 (08:00→20:48)
[2017-07-07] MEDS ORDERED: heparin 1,000 units/ml 10ml inj HE ONE ×2 (08:00)
[2017-07-07] MEDS: aspirin 81mg tab.chew PO SCH (08:00)
[2017-07-07] MEDS ORDERED: heparin 1,000unit/ml 10ml vial 10 ML IV ONE (08:00)
[2017-07-07] MEDS: atorvastatin 10mg tablet PO SCH (08:00)
[2017-07-07] MEDS: pantoprazole 40mg Tablet.DR PO SCH (08:00)
[2017-07-07] MEDS ORDERED: normal saline 1000ml 250 ML IV PRN (08:00)
[2017-07-07] MEDS: tamsulosin 0.4mg capsule PO SCH (08:00)
[2017-07-07] MEDS: lactobacillus rhamnosus 10,000 MMU CELLS/CAPSULE PO SCH ×2 (08:00→20:48)
[2017-07-07] MEDS: K and/or MAG REPLACEMENT MC SCH (08:00)
[2017-07-07] MEDS: cefepime 1GM/100ML NS ADD-VANTAGE BAG IV SCH (08:01)
[2017-07-07] MEDS: multivitamins, therapeutics tablet PO SCH (08:01)
[2017-07-07] MEDS: pregabalin 25mg capsule PO SCH ×2 (08:01→20:49)
[2017-07-07] MEDS: NUT.TX.GLUC.INTOLER,LAC-FR,REG (BOOST GLUCOSE CONTROL) 237 ML PO SCH ×3 (08:01→18:51)
[2017-07-07] MEDS: docusate sod 100mg capsule PO SCH ×2 (08:01→20:49)
[2017-07-07] MEDS: isosorbide mononitrate 30mg tab.SR.24H PO SCH (08:01)
[2017-07-07] MEDS: metroNIDAZOLE 500mg tablet PO SCH ×2 (08:01→20:48)
[2017-07-07] MEDS: ferrous sulfate 325mg tablet PO SCH (08:01)
[2017-07-07] MEDS: clopidogrel 75mg tablet PO SCH (08:10)
[2017-07-07 11:00] VITALS: BP 99/41
[2017-07-07 20:00] VITALS: BP 139/55
[2017-07-07] MEDS: sennosides/docusate sodium tablet PO SCH (20:49)
[2017-07-08] VITALS: BP 146/61
[2017-07-08] MEDS: HYDROcodone/acetaminophen 5mg/325mg tablet PO PRN ×3 (00:21→18:59)
[2017-07-08] MEDS: VANCOMYCIN LEVEL IV SCH (03:00)
[2017-07-08] MEDS ORDERED: vancomycin/NS 1 GM ADD-VANTAGE 250 ML IV ONE (07:50)
[2017-07-08 08:00] VITALS: BP 145/63
[2017-07-08] MEDS: NUT.TX.GLUC.INTOLER,LAC-FR,REG (BOOST GLUCOSE CONTROL) 237 ML PO SCH ×3 (08:00→18:00)
[2017-07-08] MEDS: K and/or MAG REPLACEMENT MC SCH (08:00)
[2017-07-08] MEDS: cefepime 1GM/100ML NS ADD-VANTAGE BAG IV SCH (09:03)
[2017-07-08] MEDS: ferrous sulfate 325mg tablet PO SCH (09:05)
[2017-07-08] MEDS: aspirin 81mg tab.chew PO SCH (09:05)
[2017-07-08] MEDS: pregabalin 25mg capsule PO SCH ×2 (09:05→20:49)
[2017-07-08] MEDS: docusate sod 100mg capsule PO SCH ×2 (09:06→20:49)
[2017-07-08] MEDS: clopidogrel 75mg tablet PO SCH (09:06)
[2017-07-08] MEDS: multivitamins, therapeutics tablet PO SCH (09:06)
[2017-07-08] MEDS: carvedilol 6.25mg tablet PO SCH ×2 (09:06→20:49)
[2017-07-08] MEDS: atorvastatin 10mg tablet PO SCH (09:06)
[2017-07-08] MEDS: tamsulosin 0.4mg capsule PO SCH (09:06)
[2017-07-08] MEDS: lactobacillus rhamnosus 10,000 MMU CELLS/CAPSULE PO SCH ×2 (09:06→20:49)
[2017-07-08] MEDS: isosorbide mononitrate 30mg tab.SR.24H PO SCH (09:06)
[2017-07-08] MEDS: metroNIDAZOLE 500mg tablet PO SCH ×2 (09:06→20:49)
[2017-07-08] MEDS: pantoprazole 40mg Tablet.DR PO SCH (09:13)
[2017-07-08 20:00] VITALS: BP 147/63
[2017-07-08] MEDS: sennosides/docusate sodium tablet PO SCH (20:49)
[2017-07-08] MEDS: acetaminophen 325mg tablet PO PRN (22:51)
[2017-07-09] VITALS: BP 129/55
[2017-07-09] MEDS: VANCOMYCIN LEVEL IV SCH (03:00)
[2017-07-09] MEDS: HYDROcodone/acetaminophen 5mg/325mg tablet PO PRN (05:14)
[2017-07-09] MEDS: metroNIDAZOLE 500mg tablet PO SCH ×2 (07:31→20:02)
[2017-07-09] MEDS: ferrous sulfate 325mg tablet PO SCH (07:31)
[2017-07-09] MEDS: pregabalin 25mg capsule PO SCH ×2 (07:31→20:02)
[2017-07-09] MEDS: pantoprazole 40mg Tablet.DR PO SCH (07:31)
[2017-07-09] MEDS: docusate sod 100mg capsule PO SCH ×2 (07:32→20:02)
[2017-07-09] MEDS: tamsulosin 0.4mg capsule PO SCH (07:32)
[2017-07-09] MEDS: isosorbide mononitrate 30mg tab.SR.24H PO SCH (07:32)
[2017-07-09] MEDS: multivitamins, therapeutics tablet PO SCH (07:32)
[2017-07-09] MEDS: lactobacillus rhamnosus 10,000 MMU CELLS/CAPSULE PO SCH ×2 (07:32→20:02)
[2017-07-09] MEDS: atorvastatin 10mg tablet PO SCH (07:32)
[2017-07-09] MEDS: K and/or MAG REPLACEMENT MC SCH (07:36)
[2017-07-09] MEDS: NUT.TX.GLUC.INTOLER,LAC-FR,REG (BOOST GLUCOSE CONTROL) 237 ML PO SCH ×3 (08:00→18:00)
[2017-07-09] MEDS: carvedilol 6.25mg tablet PO SCH ×2 (08:00→20:02)
[2017-07-09 08:33] VITALS: BP 141/58
[2017-07-09] MEDS: clopidogrel 75mg tablet PO SCH (16:13)
[2017-07-09] MEDS: cefepime 1GM/100ML NS ADD-VANTAGE BAG IV SCH (16:13)
[2017-07-09] MEDS: aspirin 81mg tab.chew PO SCH (16:13)
[2017-07-09 20:00] VITALS: BP 135/52
[2017-07-09] MEDS: sennosides/docusate sodium tablet PO SCH (20:02)
[2017-07-09] MEDS: acetaminophen 325mg tablet PO PRN (23:43)
[2017-07-10] VITALS: BP 127/50
[2017-07-10] MEDS: HYDROcodone/acetaminophen 5mg/325mg tablet PO PRN ×2 (05:04→23:13)
[2017-07-10 07:00] VITALS: BP 140/53
[2017-07-10] MEDS: K and/or MAG REPLACEMENT MC SCH (07:33)
[2017-07-10] MEDS ORDERED: heparin 1,000 units/ml 10ml inj HE ONE ×2 (08:00)
[2017-07-10] MEDS ORDERED: epoetin 20,000 units/ml inj IV ONE (08:00)
[2017-07-10] MEDS ORDERED: normal saline 1000ml 250 ML IV PRN (08:00)
[2017-07-10] MEDS ORDERED: heparin 1,000unit/ml 10ml vial 10 ML IV ONE (08:00)
[2017-07-10] MEDS: pantoprazole 40mg Tablet.DR PO SCH (08:12)
[2017-07-10] MEDS: docusate sod 100mg capsule PO SCH ×2 (08:13→21:52)
[2017-07-10] MEDS: lactobacillus rhamnosus 10,000 MMU CELLS/CAPSULE PO SCH ×2 (08:14→21:52)
[2017-07-10] MEDS: carvedilol 6.25mg tablet PO SCH ×2 (08:14→21:53)
[2017-07-10] MEDS: tamsulosin 0.4mg capsule PO SCH (08:15)
[2017-07-10] MEDS: ferrous sulfate 325mg tablet PO SCH (08:15)
[2017-07-10] MEDS: metroNIDAZOLE 500mg tablet PO SCH ×2 (08:15→21:53)
[2017-07-10] MEDS: isosorbide mononitrate 30mg tab.SR.24H PO SCH (08:16)
[2017-07-10] MEDS: clopidogrel 75mg tablet PO SCH (08:17)
[2017-07-10] MEDS: multivitamins, therapeutics tablet PO SCH (08:17)
[2017-07-10] MEDS: atorvastatin 10mg tablet PO SCH (08:17)
[2017-07-10] MEDS: aspirin 81mg tab.chew PO SCH (08:17)
[2017-07-10] MEDS: pregabalin 25mg capsule PO SCH ×2 (08:17→21:52)
[2017-07-10] MEDS: cefepime 1GM/100ML NS ADD-VANTAGE BAG IV SCH (08:18)
[2017-07-10] MEDS: NUT.TX.GLUC.INTOLER,LAC-FR,REG (BOOST GLUCOSE CONTROL) 237 ML PO SCH ×4 (08:22→21:52)
[2017-07-10 10:40] LABS: BASOPHILS % (AUTO) 0.4 % (0-1); EOSINOPHILS # (AUTO) 0.5 X10'3 (0-0.9); EOSINOPHILS % (AUTO) 6.3 % (0-6); HEMATOCRIT 26.3 % (42.0-52.0); HEMOGLOBIN 8.4 g/dl (14.0-17.9); LYMPHOCYTES # (AUTO) 1.1 X10'3 (1.1-4.8); MEAN CORPUSCULAR HEMOGLOBIN 24.8 PG (27.0-31.0); MEAN CORPUSCULAR HGB CONC 31.9 % (33.0-36.5); MEAN PLATELET VOLUME 7.9 FL (7.4-10.4); MONOCYTES # (AUTO) 1.1 X10'3 (0-0.9); MONOCYTES % (AUTO) 13.8 % (2-12); NEUTROPHILS % (AUTO) 65.5 % (42-75); PLATELET COUNT 470 X10'3 (140-440); RED BLOOD COUNT 3.37 X10'6 (4.70-6.10); RED CELL DISTRIBUTION WIDTH 20.4 % (11.5-14.5); WHITE BLOOD COUNT 7.7 X10'3 (4.5-11.0)
[2017-07-10 11:00] VITALS: BP 112/36
[2017-07-10] MEDS ORDERED: NORMAL SALINE IV ONE (13:04)
[2017-07-10] MEDS ORDERED: CEFEPIME IV ONE (13:04)
[2017-07-10 20:00] VITALS: BP 140/49
[2017-07-10] MEDS: sennosides/docusate sodium tablet PO SCH (21:52)
[2017-07-10 23:00] VITALS: BP 124/50
[2017-07-11] VITALS (17 sets, daily range): BP systolic 60–149; BP diastolic 44–78
[2017-07-11] MEDS ORDERED: VANCOMYCIN LEVEL IV SCH (03:00)
[2017-07-11] MEDS: clopidogrel 75mg tablet PO SCH (03:09)
[2017-07-11] MEDS: aspirin 81mg tab.chew PO SCH (03:10)
[2017-07-11 05:24] LABS: BASOPHILS % (AUTO) 0.6 % (0-1); EOSINOPHILS # (AUTO) 0.6 X10'3 (0-0.9); EOSINOPHILS % (AUTO) 6.9 % (0-6); HEMATOCRIT 27.4 % (42.0-52.0); HEMOGLOBIN 8.8 g/dl (14.0-17.9); LYMPHOCYTES # (AUTO) 1.8 X10'3 (1.1-4.8); LYMPHOCYTES % (AUTO) 22.5 % (21-51); MEAN CORPUSCULAR HEMOGLOBIN 24.9 PG (27.0-31.0); MEAN CORPUSCULAR HGB CONC 32.2 % (33.0-36.5); MEAN CORPUSCULAR VOLUME 77.2 FL (78-98); MEAN PLATELET VOLUME 8.2 FL (7.4-10.4); MONOCYTES # (AUTO) 1.3 X10'3 (0-0.9); MONOCYTES % (AUTO) 16.1 % (2-12); NEUTROPHILS # (AUTO) 4.3 X10'3 (1.8-7.7); NEUTROPHILS % (AUTO) 53.9 % (42-75); PLATELET COUNT 447 X10'3 (140-440); RED BLOOD COUNT 3.55 X10'6 (4.70-6.10)
[2017-07-11 05:47] LABS: INR 1.6 INR; PARTIAL THROMBOPLASTIN TIME 27 SECONDS (22-32); PROTHROMBIN TIME 15.9 SECONDS (9.0-12.0)
[2017-07-11 05:59] LABS: ALANINE AMINOTRANSFERASE 16 U/L (12-78); ALBUMIN 1.9 G/DL (3.4-5.0); ALBUMIN/GLOBULIN RATIO 0.3 (1.1-1.5); ALKALINE PHOSPHATASE 192 IU/L (46-116); ANION GAP 10 (8-16); ASPARTATE AMINO TRANSFERASE 31 U/L (10-37); BILIRUBIN,TOTAL 0.7 MG/DL (0.1-1.0); BLOOD UREA NITROGEN 36 MG/DL (7-18); BUN/CREATININE RATIO 9.4 (5.4-32.0); CALCIUM 9.1 MG/DL (8.5-10.1); CHLORIDE 99 MMOL/L (99-107); CREATININE 3.84 MG/DL (0.60-1.10); GLUCOSE 103 MG/DL (70-104); POTASSIUM 4.7 MMOL/L (3.5-5.1); SODIUM 137 MMOL/L (135-145); TOTAL CARBON DIOXIDE 28.5 MMOL/L (24-32); TOTAL PROTEIN 8.6 G/DL (6.4-8.2); eGFR 19 ML/MIN
[2017-07-11 07:32] LABS: ANISOCYTOSIS 2+; HYPOCHROMASIA 1+; PLATELET ESTIMATE INCREASED; TARGET CELLS 2+
[2017-07-11] MEDS: K and/or MAG REPLACEMENT MC SCH (08:00)
[2017-07-11] MEDS: pregabalin 25mg capsule PO SCH ×2 (08:07→22:02)
[2017-07-11] MEDS: ferrous sulfate 325mg tablet PO SCH (08:08)
[2017-07-11] MEDS: docusate sod 100mg capsule PO SCH ×2 (08:08→22:03)
[2017-07-11] MEDS: tamsulosin 0.4mg capsule PO SCH (08:08)
[2017-07-11] MEDS: pantoprazole 40mg Tablet.DR PO SCH (08:08)
[2017-07-11] MEDS: isosorbide mononitrate 30mg tab.SR.24H PO SCH (08:08)
[2017-07-11] MEDS: atorvastatin 10mg tablet PO SCH (08:08)
[2017-07-11] MEDS: carvedilol 6.25mg tablet PO SCH ×2 (08:09→22:03)
[2017-07-11] MEDS: multivitamins, therapeutics tablet PO SCH (08:09)
[2017-07-11] MEDS: lactobacillus rhamnosus 10,000 MMU CELLS/CAPSULE PO SCH ×2 (08:09→22:03)
[2017-07-11] MEDS: HYDROcodone/acetaminophen 5mg/325mg tablet PO PRN (08:09)
[2017-07-11] MEDS: NUT.TX.GLUC.INTOLER,LAC-FR,REG (BOOST GLUCOSE CONTROL) 237 ML PO SCH ×2 (13:00→18:00)
[2017-07-11] MEDS ORDERED: epiNEPHrine 1 mg/ml inj ONE (16:23)
[2017-07-11] MEDS ORDERED: ceFAZolin 1000mg inj ONE (16:23)
[2017-07-11] MEDS ORDERED: bacitracin 15gm ointment TP ONE (16:23)
[2017-07-11] MEDS ORDERED: LIDOcaine 1% 30ml preserv. free vial ONE (16:23)
[2017-07-11] MEDS ORDERED: BUPIVAcaine/PF 2.5 mg/ml (0.25%) 30ml vial ONE (16:24)
[2017-07-11] MEDS ORDERED: sevoflurane 250ml liquid IH ONE (17:16)
[2017-07-11] MEDS ORDERED: fentaNYL/PF 50MCG/1 ML 2ML syringe ONE (17:20)
[2017-07-11] MEDS ORDERED: propofol inj 20 ML IV ONE (17:21)
[2017-07-11] MEDS ORDERED: rocuronium 10mg/ml inj IV ONE (17:21)
[2017-07-11] MEDS ORDERED: midazolam 2 mg/2 ml injection ONE (17:21)
[2017-07-11] MEDS ORDERED: glycopyrrolate 0.2mg/ml inj ONE (17:44)
[2017-07-11] MEDS ORDERED: neostigmine methylsulfate 1 MG/ML 10ml vial ONE (17:44)
[2017-07-11] MEDS: sennosides/docusate sodium tablet PO SCH (22:02)
[2017-07-12 00:09] VITALS: BP 130/57
[2017-07-12] MEDS: HYDROcodone/acetaminophen 5mg/325mg tablet PO PRN ×4 (01:48→20:38)
[2017-07-12] MEDS: pregabalin 25mg capsule PO SCH ×2 (06:19→20:38)
[2017-07-12] MEDS: isosorbide mononitrate 30mg tab.SR.24H PO SCH (06:19)
[2017-07-12] MEDS: aspirin 81mg tab.chew PO SCH (06:20)
[2017-07-12] MEDS: carvedilol 6.25mg tablet PO SCH ×2 (06:20→20:38)
[2017-07-12] MEDS: clopidogrel 75mg tablet PO SCH (06:20)
[2017-07-12] MEDS: lactobacillus rhamnosus 10,000 MMU CELLS/CAPSULE PO SCH ×2 (06:20→20:37)
[2017-07-12] MEDS: atorvastatin 10mg tablet PO SCH (06:20)
[2017-07-12] MEDS: multivitamins, therapeutics tablet PO SCH (06:20)
[2017-07-12] MEDS: tamsulosin 0.4mg capsule PO SCH (06:20)
[2017-07-12] MEDS: pantoprazole 40mg Tablet.DR PO SCH (06:20)
[2017-07-12] MEDS: docusate sod 100mg capsule PO SCH ×2 (06:20→20:37)
[2017-07-12] MEDS: ferrous sulfate 325mg tablet PO SCH (06:20)
[2017-07-12 07:00] VITALS: BP 122/53
[2017-07-12] MEDS: NUT.TX.GLUC.INTOLER,LAC-FR,REG (BOOST GLUCOSE CONTROL) 237 ML PO SCH ×3 (08:00→18:18)
[2017-07-12] MEDS ORDERED: heparin 1,000 units/ml 10ml inj HE ONE ×2 (08:00)
[2017-07-12] MEDS ORDERED: normal saline 1000ml 250 ML IV PRN (08:00)
[2017-07-12] MEDS ORDERED: epoetin 20,000 units/ml inj IV ONE (08:00)
[2017-07-12] MEDS: K and/or MAG REPLACEMENT MC SCH (08:00)
[2017-07-12] MEDS ORDERED: heparin 1,000unit/ml 10ml vial 10 ML IV ONE (08:00)
[2017-07-12 09:24] LABS: HEMATOCRIT 27.3 % (42.0-52.0); HEMOGLOBIN 8.8 g/dl (14.0-17.9); MEAN CORPUSCULAR HEMOGLOBIN 24.7 PG (27.0-31.0); MEAN CORPUSCULAR HGB CONC 32.3 % (33.0-36.5); MEAN CORPUSCULAR VOLUME 76.6 FL (78-98); PLATELET COUNT 452 X10'3 (140-440); RED BLOOD COUNT 3.56 X10'6 (4.70-6.10); WHITE BLOOD COUNT 7.8 X10'3 (4.5-11.0)
[2017-07-12 11:00] VITALS: BP 111/50
[2017-07-12 14:53] VITALS: BP 111/50
[2017-07-12 15:15] VITALS: BP 125/72
[2017-07-12 20:00] VITALS: BP 148/57
[2017-07-12] MEDS: sennosides/docusate sodium tablet PO SCH (20:37)
[2017-07-13] VITALS: BP 140/52
[2017-07-13] MEDS: HYDROcodone/acetaminophen 5mg/325mg tablet PO PRN ×3 (03:16→16:42)
[2017-07-13 07:30] VITALS: BP 145/51
[2017-07-13] MEDS: K and/or MAG REPLACEMENT MC SCH (08:00)
[2017-07-13] MEDS: carvedilol 6.25mg tablet PO SCH ×2 (08:27→19:53)
[2017-07-13] MEDS: docusate sod 100mg capsule PO SCH ×2 (08:27→19:53)
[2017-07-13] MEDS: pantoprazole 40mg Tablet.DR PO SCH (08:27)
[2017-07-13] MEDS: lactobacillus rhamnosus 10,000 MMU CELLS/CAPSULE PO SCH ×2 (08:28→19:53)
[2017-07-13] MEDS: tamsulosin 0.4mg capsule PO SCH (08:28)
[2017-07-13] MEDS: clopidogrel 75mg tablet PO SCH (08:28)
[2017-07-13] MEDS: ferrous sulfate 325mg tablet PO SCH (08:28)
[2017-07-13] MEDS: pregabalin 25mg capsule PO SCH ×2 (08:28→19:53)
[2017-07-13] MEDS: isosorbide mononitrate 30mg tab.SR.24H PO SCH (08:28)
[2017-07-13] MEDS: atorvastatin 10mg tablet PO SCH (08:28)
[2017-07-13] MEDS: multivitamins, therapeutics tablet PO SCH (08:29)
[2017-07-13] MEDS: aspirin 81mg tab.chew PO SCH (08:29)
[2017-07-13] MEDS: acetaminophen 325mg tablet PO PRN (08:30)
[2017-07-13] MEDS: NUT.TX.GLUC.INTOLER,LAC-FR,REG (BOOST GLUCOSE CONTROL) 237 ML PO SCH ×3 (08:30→18:50)
[2017-07-13 11:30] VITALS: BP 119/42
[2017-07-13 19:00] VITALS: BP 140/63
[2017-07-13] MEDS: sennosides/docusate sodium tablet PO SCH (20:53)
[2017-07-14] VITALS: BP 136/56
[2017-07-14 05:58] LABS: HEMATOCRIT 29.5 % (42.0-52.0); HEMOGLOBIN 9.6 g/dl (14.0-17.9); MEAN CORPUSCULAR HGB CONC 32.4 % (33.0-36.5); MEAN CORPUSCULAR VOLUME 77.3 FL (78-98); PLATELET COUNT 432 X10'3 (140-440); RED BLOOD COUNT 3.81 X10'6 (4.70-6.10); RED CELL DISTRIBUTION WIDTH 20.1 % (11.5-14.5); WHITE BLOOD COUNT 8.6 X10'3 (4.5-11.0)
[2017-07-14] MEDS: HYDROcodone/acetaminophen 5mg/325mg tablet PO PRN (07:21)
[2017-07-14] MEDS: acetaminophen 325mg tablet PO PRN (07:22)
[2017-07-14 07:45] VITALS: BP 143/66
[2017-07-14] MEDS ORDERED: epoetin 20,000 units/ml inj IV ONE (08:00)
[2017-07-14] MEDS ORDERED: normal saline 1000ml 250 ML IV PRN (08:00)
[2017-07-14] MEDS ORDERED: heparin 1,000unit/ml 10ml vial 10 ML IV ONE (08:00)
[2017-07-14] MEDS: NUT.TX.GLUC.INTOLER,LAC-FR,REG (BOOST GLUCOSE CONTROL) 237 ML PO SCH ×3 (08:00→18:00)
[2017-07-14] MEDS: K and/or MAG REPLACEMENT MC SCH (08:00)
[2017-07-14] MEDS ORDERED: heparin 1,000 units/ml 10ml inj HE ONE ×2 (08:00)
[2017-07-14] MEDS: pantoprazole 40mg Tablet.DR PO SCH (09:25)
[2017-07-14] MEDS: lactobacillus rhamnosus 10,000 MMU CELLS/CAPSULE PO SCH ×2 (09:25→20:56)
[2017-07-14] MEDS: clopidogrel 75mg tablet PO SCH (09:25)
[2017-07-14] MEDS: docusate sod 100mg capsule PO SCH ×2 (09:25→20:56)
[2017-07-14] MEDS: tamsulosin 0.4mg capsule PO SCH (09:25)
[2017-07-14] MEDS: carvedilol 6.25mg tablet PO SCH ×2 (09:25→21:02)
[2017-07-14] MEDS: pregabalin 25mg capsule PO SCH ×2 (09:25→20:56)
[2017-07-14] MEDS: atorvastatin 10mg tablet PO SCH (09:26)
[2017-07-14] MEDS: ferrous sulfate 325mg tablet PO SCH (09:26)
[2017-07-14] MEDS: multivitamins, therapeutics tablet PO SCH (09:26)
[2017-07-14] MEDS: isosorbide mononitrate 30mg tab.SR.24H PO SCH (09:26)
[2017-07-14] MEDS: aspirin 81mg tab.chew PO SCH (09:26)
[2017-07-14 12:35] VITALS: BP 133/60
[2017-07-14 18:00] VITALS: BP 102/51
[2017-07-14] MEDS: sennosides/docusate sodium tablet PO SCH (20:56)
[2017-07-14 23:30] VITALS: BP 124/57
[2017-07-15 01:16] LABS: CLARITY,URINE TURBID (Clear); COLOR,URINE YELLOW (Yellow); GLUCOSE, URINE NEGATIVE (Neg); KETONES,URINE NEGATIVE (Neg); LEUKOCYTE ESTERASE ,URINE LARGE (Neg); NITRITES, URINE NEGATIVE (Neg); OCCULT BLOOD,URINE LARGE (Neg); PROTEIN,URINE >=300 mg/dl (Neg); UA COLLECTION TYPE STRAIGHT CATH; UROBILINOGEN,URINE 0.2 E.U/dL (0.2-1.0)
[2017-07-15 02:02] LABS: WBC,URINE TNTC /HPF (0-4)
[2017-07-15 02:05] LABS: BACTERIA,URINE 3+ /HPF (Neg); MUCUS STRANDS NONE SEEN /LPF (Neg); RBC,URINE 0-2 /HPF (0-2); SQUAMOUS EPITHELIAL CELL,UR NONE SEEN /LPF (FEW)
[2017-07-15] MEDS: HYDROcodone/acetaminophen 5mg/325mg tablet PO PRN ×3 (06:51→21:32)
[2017-07-15 08:00] VITALS: BP 124/51
[2017-07-15] MEDS: K and/or MAG REPLACEMENT MC SCH (08:00)
[2017-07-15] MEDS: NUT.TX.GLUC.INTOLER,LAC-FR,REG (BOOST GLUCOSE CONTROL) 237 ML PO SCH ×3 (08:00→19:59)
[2017-07-15] MEDS: isosorbide mononitrate 30mg tab.SR.24H PO SCH (09:47)
[2017-07-15] MEDS: atorvastatin 10mg tablet PO SCH (09:48)
[2017-07-15] MEDS: ferrous sulfate 325mg tablet PO SCH (09:48)
[2017-07-15] MEDS: multivitamins, therapeutics tablet PO SCH (09:48)
[2017-07-15] MEDS: lactobacillus rhamnosus 10,000 MMU CELLS/CAPSULE PO SCH ×2 (09:49→19:59)
[2017-07-15] MEDS: tamsulosin 0.4mg capsule PO SCH (09:49)
[2017-07-15] MEDS: clopidogrel 75mg tablet PO SCH (09:49)
[2017-07-15] MEDS: carvedilol 6.25mg tablet PO SCH ×2 (09:49→19:59)
[2017-07-15] MEDS: docusate sod 100mg capsule PO SCH ×2 (09:50→19:59)
[2017-07-15] MEDS: aspirin 81mg tab.chew PO SCH (09:50)
[2017-07-15] MEDS: pregabalin 25mg capsule PO SCH ×2 (09:50→19:59)
[2017-07-15] MEDS: pantoprazole 40mg Tablet.DR PO SCH (09:54)
[2017-07-15 11:00] VITALS: BP 108/52
[2017-07-15 19:00] VITALS: BP 125/59
[2017-07-15] MEDS: sennosides/docusate sodium tablet PO SCH (21:32)
[2017-07-16] VITALS: BP 113/50
[2017-07-16] MEDS: HYDROcodone/acetaminophen 5mg/325mg tablet PO PRN ×2 (05:57→21:42)
[2017-07-16 08:00] VITALS: BP 132/62
[2017-07-16] MEDS: K and/or MAG REPLACEMENT MC SCH (08:00)
[2017-07-16] MEDS: pantoprazole 40mg Tablet.DR PO SCH (08:48)
[2017-07-16] MEDS: NUT.TX.GLUC.INTOLER,LAC-FR,REG (BOOST GLUCOSE CONTROL) 237 ML PO SCH ×3 (08:49→18:22)
[2017-07-16] MEDS: docusate sod 100mg capsule PO SCH ×2 (08:49→21:40)
[2017-07-16] MEDS: carvedilol 6.25mg tablet PO SCH ×2 (08:49→21:41)
[2017-07-16] MEDS: lactobacillus rhamnosus 10,000 MMU CELLS/CAPSULE PO SCH ×2 (08:50→21:41)
[2017-07-16] MEDS: isosorbide mononitrate 30mg tab.SR.24H PO SCH (08:50)
[2017-07-16] MEDS: tamsulosin 0.4mg capsule PO SCH (08:50)
[2017-07-16] MEDS: ferrous sulfate 325mg tablet PO SCH (08:50)
[2017-07-16] MEDS: multivitamins, therapeutics tablet PO SCH (08:51)
[2017-07-16] MEDS: aspirin 81mg tab.chew PO SCH (08:51)
[2017-07-16] MEDS: clopidogrel 75mg tablet PO SCH (08:51)
[2017-07-16] MEDS: pregabalin 25mg capsule PO SCH ×2 (08:51→21:41)
[2017-07-16] MEDS: atorvastatin 10mg tablet PO SCH (08:59)
[2017-07-16 12:00] VITALS: BP 104/48
[2017-07-16 18:30] VITALS: BP 121/69
[2017-07-16] MEDS: sennosides/docusate sodium tablet PO SCH (21:41)
[2017-07-17] VITALS: BP 121/54
[2017-07-17] MEDS: HYDROcodone/acetaminophen 5mg/325mg tablet PO PRN ×3 (05:43→23:04)
[2017-07-17 06:00] VITALS: BP 133/75
[2017-07-17] MEDS ORDERED: heparin 1,000unit/ml 10ml vial 10 ML IV ONE (08:00)
[2017-07-17] MEDS ORDERED: epoetin 20,000 units/ml inj IV ONE (08:00)
[2017-07-17] MEDS ORDERED: normal saline 1000ml 250 ML IV PRN (08:00)
[2017-07-17] MEDS ORDERED: heparin 1,000 units/ml 10ml inj HE ONE ×2 (08:00)
[2017-07-17 10:52] LABS: BASOPHILS % (AUTO) 0.1 % (0-1); EOSINOPHILS # (AUTO) 0.4 X10'3 (0-0.9); EOSINOPHILS % (AUTO) 4.4 % (0-6); HEMATOCRIT 27.1 % (42.0-52.0); HEMOGLOBIN 8.6 g/dl (14.0-17.9); LYMPHOCYTES % (AUTO) 20.2 % (21-51); MEAN CORPUSCULAR HEMOGLOBIN 24.4 PG (27.0-31.0); MEAN CORPUSCULAR HGB CONC 31.8 % (33.0-36.5); MEAN CORPUSCULAR VOLUME 76.8 FL (78-98); MEAN PLATELET VOLUME 8.2 FL (7.4-10.4); MONOCYTES % (AUTO) 9.9 % (2-12); NEUTROPHILS # (AUTO) 6.4 X10'3 (1.8-7.7); NEUTROPHILS % (AUTO) 65.4 % (42-75); PLATELET COUNT 414 X10'3 (140-440); RED BLOOD COUNT 3.53 X10'6 (4.70-6.10); RED CELL DISTRIBUTION WIDTH 19.7 % (11.5-14.5); WHITE BLOOD COUNT 9.7 X10'3 (4.5-11.0)
[2017-07-17 10:59] LABS: ALANINE AMINOTRANSFERASE 26 U/L (12-78); ALBUMIN/GLOBULIN RATIO 0.3 (1.1-1.5); ALKALINE PHOSPHATASE 168 IU/L (46-116); ANION GAP 12 (8-16); ASPARTATE AMINO TRANSFERASE 51 U/L (10-37); BILIRUBIN,TOTAL 0.6 MG/DL (0.1-1.0); BLOOD UREA NITROGEN 65 MG/DL (7-18); BUN/CREATININE RATIO 10.7 (5.4-32.0); CALCIUM 9.1 MG/DL (8.5-10.1); CHLORIDE 96 MMOL/L (99-107); CREATININE 6.07 MG/DL (0.60-1.10); GLUCOSE 113 MG/DL (70-104); POTASSIUM 5.2 MMOL/L (3.5-5.1); SODIUM 135 MMOL/L (135-145); TOTAL CARBON DIOXIDE 26.7 MMOL/L (24-32); TOTAL PROTEIN 8.7 G/DL (6.4-8.2); eGFR 11 ML/MIN
[2017-07-17 11:00] VITALS: BP 136/65
[2017-07-17] MEDS: pantoprazole 40mg Tablet.DR PO SCH (14:44)
[2017-07-17] MEDS: carvedilol 6.25mg tablet PO SCH ×2 (14:46→23:03)
[2017-07-17] MEDS: tamsulosin 0.4mg capsule PO SCH (14:46)
[2017-07-17] MEDS: isosorbide mononitrate 30mg tab.SR.24H PO SCH (14:47)
[2017-07-17] MEDS: atorvastatin 10mg tablet PO SCH (14:48)
[2017-07-17] MEDS: lactobacillus rhamnosus 10,000 MMU CELLS/CAPSULE PO SCH ×2 (14:48→23:03)
[2017-07-17] MEDS: clopidogrel 75mg tablet PO SCH (14:48)
[2017-07-17] MEDS: ferrous sulfate 325mg tablet PO SCH (14:48)
[2017-07-17] MEDS: multivitamins, therapeutics tablet PO SCH (14:48)
[2017-07-17] MEDS: aspirin 81mg tab.chew PO SCH (14:49)
[2017-07-17] MEDS: docusate sod 100mg capsule PO SCH ×2 (14:49→23:03)
[2017-07-17] MEDS: pregabalin 25mg capsule PO SCH ×2 (14:49→23:03)
[2017-07-17] MEDS: K and/or MAG REPLACEMENT MC SCH (14:59)
[2017-07-17] MEDS: NUT.TX.GLUC.INTOLER,LAC-FR,REG (BOOST GLUCOSE CONTROL) 237 ML PO SCH ×3 (14:59→18:00)
[2017-07-17 18:30] VITALS: BP 120/52
[2017-07-17 23:00] VITALS: BP 131/58
[2017-07-17] MEDS: sennosides/docusate sodium tablet PO SCH (23:03)
[2017-07-18] VITALS: BP 128/59
[2017-07-18] MEDS: acetaminophen 325mg tablet PO PRN (05:30)
[2017-07-18 08:00] VITALS: BP 140/63
[2017-07-18] MEDS: NUT.TX.GLUC.INTOLER,LAC-FR,REG (BOOST GLUCOSE CONTROL) 237 ML PO SCH ×3 (08:00→18:11)
[2017-07-18] MEDS: K and/or MAG REPLACEMENT MC SCH (08:00)
[2017-07-18] MEDS: carvedilol 6.25mg tablet PO SCH ×2 (09:27→20:48)
[2017-07-18] MEDS: multivitamins, therapeutics tablet PO SCH (09:29)
[2017-07-18] MEDS: docusate sod 100mg capsule PO SCH ×2 (09:30→20:48)
[2017-07-18] MEDS: atorvastatin 10mg tablet PO SCH (09:30)
[2017-07-18] MEDS: pregabalin 25mg capsule PO SCH ×2 (09:30→20:47)
[2017-07-18] MEDS: clopidogrel 75mg tablet PO SCH (09:31)
[2017-07-18] MEDS: ferrous sulfate 325mg tablet PO SCH (09:31)
[2017-07-18] MEDS: lactobacillus rhamnosus 10,000 MMU CELLS/CAPSULE PO SCH ×2 (09:31→20:48)
[2017-07-18] MEDS: aspirin 81mg tab.chew PO SCH (09:31)
[2017-07-18] MEDS: pantoprazole 40mg Tablet.DR PO SCH (09:31)
[2017-07-18] MEDS: tamsulosin 0.4mg capsule PO SCH (09:33)
[2017-07-18] MEDS: isosorbide mononitrate 30mg tab.SR.24H PO SCH (09:33)
[2017-07-18 18:28] LABS: ALANINE AMINOTRANSFERASE 27 U/L (12-78); ALBUMIN 2.1 G/DL (3.4-5.0); ALBUMIN/GLOBULIN RATIO 0.3 (1.1-1.5); ALKALINE PHOSPHATASE 176 IU/L (46-116); ANION GAP 7 (8-16); ASPARTATE AMINO TRANSFERASE 45 U/L (10-37); BILIRUBIN,TOTAL 0.6 MG/DL (0.1-1.0); BLOOD UREA NITROGEN 43 MG/DL (7-18); CALCIUM 9.4 MG/DL (8.5-10.1); CHLORIDE 98 MMOL/L (99-107); CREATININE 4.76 MG/DL (0.60-1.10); GLUCOSE 153 MG/DL (70-104); POTASSIUM 4.7 MMOL/L (3.5-5.1); SODIUM 134 MMOL/L (135-145); TOTAL CARBON DIOXIDE 28.9 MMOL/L (24-32); TOTAL PROTEIN 8.9 G/DL (6.4-8.2); eGFR 15 ML/MIN
[2017-07-18 18:43] LABS: BASOPHILS % (AUTO) 0.1 % (0-1); EOSINOPHILS # (AUTO) 0.3 X10'3 (0-0.9); EOSINOPHILS % (AUTO) 2.2 % (0-6); HEMATOCRIT 28.7 % (42.0-52.0); HEMOGLOBIN 9.2 g/dl (14.0-17.9); LYMPHOCYTES # (AUTO) 2.4 X10'3 (1.1-4.8); LYMPHOCYTES % (AUTO) 19.4 % (21-51); MEAN CORPUSCULAR HEMOGLOBIN 24.3 PG (27.0-31.0); MEAN CORPUSCULAR HGB CONC 32.1 % (33.0-36.5); MEAN CORPUSCULAR VOLUME 75.8 FL (78-98); MONOCYTES # (AUTO) 1.1 X10'3 (0-0.9); MONOCYTES % (AUTO) 9.3 % (2-12); NEUTROPHILS # (AUTO) 8.5 X10'3 (1.8-7.7); PLATELET COUNT 422 X10'3 (140-440); RED BLOOD COUNT 3.79 X10'6 (4.70-6.10); RED CELL DISTRIBUTION WIDTH 19.8 % (11.5-14.5); WHITE BLOOD COUNT 12.3 X10'3 (4.5-11.0)
[2017-07-18 19:00] VITALS: BP 144/54
[2017-07-18] MEDS: sennosides/docusate sodium tablet PO SCH (20:48)
[2017-07-19] VITALS: BP 126/46
[2017-07-19] MEDS: HYDROcodone/acetaminophen 5mg/325mg tablet PO PRN ×3 (00:55→20:19)
[2017-07-19 07:00] VITALS: BP 129/50
[2017-07-19 07:32] LABS: BASOPHILS % (AUTO) 0 % (0-1); EOSINOPHILS # (AUTO) 0.3 X10'3 (0-0.9); EOSINOPHILS % (AUTO) 2.6 % (0-6); HEMATOCRIT 28.5 % (42.0-52.0); HEMOGLOBIN 9.2 g/dl (14.0-17.9); LYMPHOCYTES # (AUTO) 2.8 X10'3 (1.1-4.8); LYMPHOCYTES % (AUTO) 23.2 % (21-51); MEAN CORPUSCULAR HEMOGLOBIN 24.3 PG (27.0-31.0); MEAN CORPUSCULAR HGB CONC 32.3 % (33.0-36.5); MEAN CORPUSCULAR VOLUME 75.2 FL (78-98); MEAN PLATELET VOLUME 7.7 FL (7.4-10.4); MONOCYTES # (AUTO) 1.2 X10'3 (0-0.9); MONOCYTES % (AUTO) 9.6 % (2-12); NEUTROPHILS # (AUTO) 7.8 X10'3 (1.8-7.7); NEUTROPHILS % (AUTO) 64.6 % (42-75); PLATELET COUNT 435 X10'3 (140-440); RED BLOOD COUNT 3.79 X10'6 (4.70-6.10); RED CELL DISTRIBUTION WIDTH 19.6 % (11.5-14.5); WHITE BLOOD COUNT 12.1 X10'3 (4.5-11.0)
[2017-07-19 07:57] LABS: ANISOCYTOSIS 2+; HYPOCHROMASIA 1+; PLATELET ESTIMATE NORMAL; POLYCHROMASIA 1+; TARGET CELLS 2+
[2017-07-19] MEDS ORDERED: heparin 1,000 units/ml 10ml inj HE ONE ×2 (08:00)
[2017-07-19] MEDS ORDERED: normal saline 1000ml 250 ML IV PRN (08:00)
[2017-07-19] MEDS ORDERED: heparin 1,000unit/ml 10ml vial 10 ML IV ONE (08:00)
[2017-07-19] MEDS: K and/or MAG REPLACEMENT MC SCH (08:00)
[2017-07-19] MEDS ORDERED: epoetin 20,000 units/ml inj IV ONE (08:00)
[2017-07-19] MEDS: docusate sod 100mg capsule PO SCH ×2 (08:05→19:56)
[2017-07-19] MEDS: atorvastatin 10mg tablet PO SCH (08:05)
[2017-07-19] MEDS: lactobacillus rhamnosus 10,000 MMU CELLS/CAPSULE PO SCH ×2 (08:05→19:55)
[2017-07-19] MEDS: clopidogrel 75mg tablet PO SCH (08:05)
[2017-07-19] MEDS: multivitamins, therapeutics tablet PO SCH (08:05)
[2017-07-19] MEDS: aspirin 81mg tab.chew PO SCH (08:05)
[2017-07-19] MEDS: pantoprazole 40mg Tablet.DR PO SCH (08:05)
[2017-07-19] MEDS: pregabalin 25mg capsule PO SCH ×2 (08:05→19:55)
[2017-07-19] MEDS: tamsulosin 0.4mg capsule PO SCH (08:06)
[2017-07-19] MEDS: ferrous sulfate 325mg tablet PO SCH (08:06)
[2017-07-19] MEDS: isosorbide mononitrate 30mg tab.SR.24H PO SCH (08:06)
[2017-07-19] MEDS: NUT.TX.GLUC.INTOLER,LAC-FR,REG (BOOST GLUCOSE CONTROL) 237 ML PO SCH ×3 (08:06→19:45)
[2017-07-19] MEDS: carvedilol 6.25mg tablet PO SCH ×2 (08:06→19:55)
[2017-07-19] MEDS: acetaminophen 325mg tablet PO PRN (08:07)
[2017-07-19 15:15] LABS: ALBUMIN 2.2 G/DL (3.4-5.0); ANION GAP 13 (8-16); BLOOD UREA NITROGEN 52 MG/DL (7-18); BUN/CREATININE RATIO 9.2 (5.4-32.0); CALCIUM 9.8 MG/DL (8.5-10.1); CHLORIDE 98 MMOL/L (99-107); CREATININE 5.66 MG/DL (0.60-1.10); GLUCOSE 113 MG/DL (70-104); POTASSIUM 5.1 MMOL/L (3.5-5.1); SODIUM 137 MMOL/L (135-145); TOTAL CARBON DIOXIDE 26.4 MMOL/L (24-32); eGFR 12 ML/MIN
[2017-07-19 19:00] VITALS: BP 136/49
[2017-07-19] MEDS: sennosides/docusate sodium tablet PO SCH (19:57)
[2017-07-19 20:00] VITALS: BP 141/63
[2017-07-20] VITALS: BP 125/49
[2017-07-20 05:28] LABS: BASOPHILS # (AUTO) 0.1 X10'3 (0-0.2); BASOPHILS % (AUTO) 0.5 % (0-1); EOSINOPHILS # (AUTO) 0.3 X10'3 (0-0.9); EOSINOPHILS % (AUTO) 2.8 % (0-6); HEMATOCRIT 27.5 % (42.0-52.0); HEMOGLOBIN 8.9 g/dl (14.0-17.9); LYMPHOCYTES # (AUTO) 2.2 X10'3 (1.1-4.8); MEAN CORPUSCULAR HEMOGLOBIN 24.2 PG (27.0-31.0); MEAN CORPUSCULAR HGB CONC 32.2 % (33.0-36.5); MEAN CORPUSCULAR VOLUME 75.3 FL (78-98); MEAN PLATELET VOLUME 7.8 FL (7.4-10.4); MONOCYTES # (AUTO) 1.3 X10'3 (0-0.9); MONOCYTES % (AUTO) 12.2 % (2-12); NEUTROPHILS # (AUTO) 6.7 X10'3 (1.8-7.7); NEUTROPHILS % (AUTO) 63.5 % (42-75); PLATELET COUNT 441 X10'3 (140-440); RED BLOOD COUNT 3.65 X10'6 (4.70-6.10); RED CELL DISTRIBUTION WIDTH 19.6 % (11.5-14.5); WHITE BLOOD COUNT 10.6 X10'3 (4.5-11.0)
[2017-07-20 05:50] LABS: ALANINE AMINOTRANSFERASE 30 U/L (12-78); ALBUMIN/GLOBULIN RATIO 0.3 (1.1-1.5); ALKALINE PHOSPHATASE 148 IU/L (46-116); ANION GAP 8 (8-16); ASPARTATE AMINO TRANSFERASE 45 U/L (10-37); BILIRUBIN,TOTAL 0.6 MG/DL (0.1-1.0); BLOOD UREA NITROGEN 29 MG/DL (7-18); BUN/CREATININE RATIO 8.1 (5.4-32.0); CALCIUM 9.2 MG/DL (8.5-10.1); CHLORIDE 99 MMOL/L (99-107); CREATININE 3.57 MG/DL (0.60-1.10); GLUCOSE 108 MG/DL (70-104); POTASSIUM 4.5 MMOL/L (3.5-5.1); SODIUM 135 MMOL/L (135-145); TOTAL CARBON DIOXIDE 28.2 MMOL/L (24-32); TOTAL PROTEIN 8.8 G/DL (6.4-8.2); eGFR 21 ML/MIN
[2017-07-20] MEDS: K and/or MAG REPLACEMENT MC SCH (08:00)
[2017-07-20] MEDS: tamsulosin 0.4mg capsule PO SCH (08:09)
[2017-07-20] MEDS: docusate sod 100mg capsule PO SCH ×2 (08:09→19:51)
[2017-07-20] MEDS: atorvastatin 10mg tablet PO SCH (08:10)
[2017-07-20] MEDS: NUT.TX.GLUC.INTOLER,LAC-FR,REG (BOOST GLUCOSE CONTROL) 237 ML PO SCH ×3 (08:10→18:38)
[2017-07-20] MEDS: ferrous sulfate 325mg tablet PO SCH (08:10)
[2017-07-20] MEDS: pantoprazole 40mg Tablet.DR PO SCH (08:10)
[2017-07-20] MEDS: clopidogrel 75mg tablet PO SCH (08:10)
[2017-07-20] MEDS: multivitamins, therapeutics tablet PO SCH (08:10)
[2017-07-20] MEDS: lactobacillus rhamnosus 10,000 MMU CELLS/CAPSULE PO SCH ×2 (08:10→19:51)
[2017-07-20] MEDS: aspirin 81mg tab.chew PO SCH (08:10)
[2017-07-20] MEDS: pregabalin 25mg capsule PO SCH ×2 (08:10→19:51)
[2017-07-20] MEDS: carvedilol 6.25mg tablet PO SCH ×2 (08:10→19:51)
[2017-07-20] MEDS: isosorbide mononitrate 30mg tab.SR.24H PO SCH (08:10)
[2017-07-20] MEDS: HYDROcodone/acetaminophen 5mg/325mg tablet PO PRN ×2 (08:17→19:51)
[2017-07-20 11:00] VITALS: BP 122/65
[2017-07-20 13:59] LABS: LACTATE DEHYDROGENASE 200 U/L (85-227)
[2017-07-20 14:00] LABS: FERRITIN 1629 NG/ML (26-388)
[2017-07-20 14:08] LABS: RHEUM FACTOR QUAL REFLEX TITER NEGATIVE (Neg)
[2017-07-20 19:00] VITALS: BP 132/53
[2017-07-20] MEDS: sennosides/docusate sodium tablet PO SCH (19:54)
[2017-07-20 20:00] VITALS: BP 122/45
[2017-07-21] VITALS: BP 132/53
[2017-07-21] MEDS: diatr meglu/diatrizoate 30ml oral sol.-(3 dose) bottle PO SCH ×3 (00:16→09:47)
[2017-07-21 05:23] LABS: BASOPHILS % (AUTO) 0.2 % (0-1); EOSINOPHILS # (AUTO) 0.3 X10'3 (0-0.9); EOSINOPHILS % (AUTO) 2.4 % (0-6); HEMATOCRIT 26.9 % (42.0-52.0); HEMOGLOBIN 8.6 g/dl (14.0-17.9); LYMPHOCYTES # (AUTO) 2.7 X10'3 (1.1-4.8); MEAN CORPUSCULAR HEMOGLOBIN 24.1 PG (27.0-31.0); MEAN CORPUSCULAR HGB CONC 31.8 % (33.0-36.5); MEAN CORPUSCULAR VOLUME 75.8 FL (78-98); MEAN PLATELET VOLUME 7.8 FL (7.4-10.4); MONOCYTES # (AUTO) 1.4 X10'3 (0-0.9); MONOCYTES % (AUTO) 12.5 % (2-12); NEUTROPHILS # (AUTO) 6.8 X10'3 (1.8-7.7); NEUTROPHILS % (AUTO) 60.9 % (42-75); PLATELET COUNT 456 X10'3 (140-440); RED BLOOD COUNT 3.55 X10'6 (4.70-6.10); RED CELL DISTRIBUTION WIDTH 19.4 % (11.5-14.5); WHITE BLOOD COUNT 11.1 X10'3 (4.5-11.0)
[2017-07-21 05:55] LABS: ALANINE AMINOTRANSFERASE 31 U/L (12-78); ALBUMIN 1.9 G/DL (3.4-5.0); ALBUMIN/GLOBULIN RATIO 0.3 (1.1-1.5); ALKALINE PHOSPHATASE 154 IU/L (46-116); ANION GAP 12 (8-16); ASPARTATE AMINO TRANSFERASE 49 U/L (10-37); BILIRUBIN,TOTAL 0.6 MG/DL (0.1-1.0); BLOOD UREA NITROGEN 40 MG/DL (7-18); BUN/CREATININE RATIO 7.5 (5.4-32.0); CALCIUM 9.3 MG/DL (8.5-10.1); CHLORIDE 100 MMOL/L (99-107); CREATININE 5.32 MG/DL (0.60-1.10); GLUCOSE 125 MG/DL (70-104); POTASSIUM 4.7 MMOL/L (3.5-5.1); SODIUM 138 MMOL/L (135-145); TOTAL CARBON DIOXIDE 26.1 MMOL/L (24-32); TOTAL PROTEIN 8.7 G/DL (6.4-8.2); eGFR 13 ML/MIN
[2017-07-21 07:08] VITALS: BP 140/64
[2017-07-21] MEDS: ferrous sulfate 325mg tablet PO SCH (07:36)
[2017-07-21] MEDS: isosorbide mononitrate 30mg tab.SR.24H PO SCH (07:36)
[2017-07-21] MEDS: clopidogrel 75mg tablet PO SCH (07:36)
[2017-07-21] MEDS: atorvastatin 10mg tablet PO SCH (07:36)
[2017-07-21] MEDS: pantoprazole 40mg Tablet.DR PO SCH (07:44)
[2017-07-21] MEDS: docusate sod 100mg capsule PO SCH ×2 (08:00→19:55)
[2017-07-21] MEDS: carvedilol 6.25mg tablet PO SCH ×2 (08:00→19:55)
[2017-07-21] MEDS ORDERED: heparin 1,000unit/ml 10ml vial 10 ML IV ONE (08:49)
[2017-07-21] MEDS ORDERED: normal saline 1000ml 250 ML IV PRN (08:49)
[2017-07-21] MEDS ORDERED: epoetin 20,000 units/ml inj IV ONE (08:50)
[2017-07-21] MEDS: K and/or MAG REPLACEMENT MC SCH (08:51)
[2017-07-21] MEDS: NUT.TX.GLUC.INTOLER,LAC-FR,REG (BOOST GLUCOSE CONTROL) 237 ML PO SCH ×3 (08:53→19:56)
[2017-07-21] MEDS ORDERED: heparin 1,000 units/ml 10ml inj HE ONE ×2 (08:55)
[2017-07-21] MEDS: multivitamins, therapeutics tablet PO SCH (08:59)
[2017-07-21] MEDS: lactobacillus rhamnosus 10,000 MMU CELLS/CAPSULE PO SCH ×2 (08:59→19:55)
[2017-07-21] MEDS: pregabalin 25mg capsule PO SCH ×2 (08:59→19:55)
[2017-07-21] MEDS: tamsulosin 0.4mg capsule PO SCH (08:59)
[2017-07-21] MEDS: aspirin 81mg tab.chew PO SCH (09:02)
[2017-07-21 11:00] VITALS: BP 138/80
[2017-07-21 19:00] VITALS: BP 140/77
[2017-07-21] MEDS: sennosides/docusate sodium tablet PO SCH (19:55)
[2017-07-21] MEDS: HYDROcodone/acetaminophen 5mg/325mg tablet PO PRN (19:56)
[2017-07-22] VITALS: BP 118/45
[2017-07-22 05:32] LABS: BASOPHILS # (AUTO) 0.1 X10'3 (0-0.2); BASOPHILS % (AUTO) 0.5 % (0-1); EOSINOPHILS # (AUTO) 0.4 X10'3 (0-0.9); HEMATOCRIT 28.6 % (42.0-52.0); HEMOGLOBIN 9.1 g/dl (14.0-17.9); LYMPHOCYTES # (AUTO) 2.8 X10'3 (1.1-4.8); LYMPHOCYTES % (AUTO) 25.6 % (21-51); MEAN CORPUSCULAR HEMOGLOBIN 24.4 PG (27.0-31.0); MEAN CORPUSCULAR VOLUME 76.3 FL (78-98); MEAN PLATELET VOLUME 7.8 FL (7.4-10.4); MONOCYTES % (AUTO) 9.1 % (2-12); NEUTROPHILS # (AUTO) 6.5 X10'3 (1.8-7.7); NEUTROPHILS % (AUTO) 60.8 % (42-75); PLATELET COUNT 482 X10'3 (140-440); RED BLOOD COUNT 3.75 X10'6 (4.70-6.10); RED CELL DISTRIBUTION WIDTH 19.5 % (11.5-14.5); WHITE BLOOD COUNT 10.8 X10'3 (4.5-11.0)
[2017-07-22 05:58] LABS: ALANINE AMINOTRANSFERASE 36 U/L (12-78); ALBUMIN/GLOBULIN RATIO 0.3 (1.1-1.5); ALKALINE PHOSPHATASE 157 IU/L (46-116); ANION GAP 10 (8-16); ASPARTATE AMINO TRANSFERASE 50 U/L (10-37); BILIRUBIN,TOTAL 0.6 MG/DL (0.1-1.0); BLOOD UREA NITROGEN 28 MG/DL (7-18); BUN/CREATININE RATIO 8.2 (5.4-32.0); CALCIUM 9.2 MG/DL (8.5-10.1); CHLORIDE 100 MMOL/L (99-107); CREATININE 3.43 MG/DL (0.60-1.10); GLUCOSE 131 MG/DL (70-104); POTASSIUM 4.5 MMOL/L (3.5-5.1); SODIUM 137 MMOL/L (135-145); TOTAL CARBON DIOXIDE 27.4 MMOL/L (24-32); TOTAL PROTEIN 8.9 G/DL (6.4-8.2); eGFR 22 ML/MIN
[2017-07-22 06:00] VITALS: BP 143/54
[2017-07-22] MEDS: atorvastatin 10mg tablet PO SCH (07:22)
[2017-07-22] MEDS: docusate sod 100mg capsule PO SCH ×2 (07:22→21:55)
[2017-07-22] MEDS: ferrous sulfate 325mg tablet PO SCH (07:22)
[2017-07-22] MEDS: carvedilol 6.25mg tablet PO SCH ×2 (07:22→22:00)
[2017-07-22] MEDS: isosorbide mononitrate 30mg tab.SR.24H PO SCH (07:22)
[2017-07-22] MEDS: lactobacillus rhamnosus 10,000 MMU CELLS/CAPSULE PO SCH ×2 (07:22→21:53)
[2017-07-22] MEDS: tamsulosin 0.4mg capsule PO SCH (07:22)
[2017-07-22] MEDS: pantoprazole 40mg Tablet.DR PO SCH (07:22)
[2017-07-22] MEDS: pregabalin 25mg capsule PO SCH ×2 (07:23→21:53)
[2017-07-22] MEDS: clopidogrel 75mg tablet PO SCH (07:23)
[2017-07-22] MEDS: multivitamins, therapeutics tablet PO SCH (07:23)
[2017-07-22] MEDS: HYDROcodone/acetaminophen 5mg/325mg tablet PO PRN ×2 (07:24→11:36)
[2017-07-22] MEDS: K and/or MAG REPLACEMENT MC SCH (08:00)
[2017-07-22] MEDS: NUT.TX.GLUC.INTOLER,LAC-FR,REG (BOOST GLUCOSE CONTROL) 237 ML PO SCH ×3 (08:00→18:00)
[2017-07-22] MEDS: aspirin 81mg tab.chew PO SCH (09:55)
[2017-07-22 14:00] VITALS: BP 101/47
[2017-07-22 18:30] VITALS: BP 127/54
[2017-07-22] MEDS: acetaminophen 325mg tablet PO PRN (21:54)
[2017-07-22] MEDS: sennosides/docusate sodium tablet PO SCH (21:54)
[2017-07-22 22:00] VITALS: BP 135/49
[2017-07-22 23:30] VITALS: BP 112/50
[2017-07-23 05:18] LABS: BASOPHILS % (AUTO) 0 % (0-1); EOSINOPHILS # (AUTO) 0.5 X10'3 (0-0.9); EOSINOPHILS % (AUTO) 4.1 % (0-6); HEMATOCRIT 27.7 % (42.0-52.0); HEMOGLOBIN 8.9 g/dl (14.0-17.9); LYMPHOCYTES # (AUTO) 2.6 X10'3 (1.1-4.8); LYMPHOCYTES % (AUTO) 23.2 % (21-51); MEAN CORPUSCULAR HEMOGLOBIN 24.2 PG (27.0-31.0); MEAN CORPUSCULAR HGB CONC 32.1 % (33.0-36.5); MEAN CORPUSCULAR VOLUME 75.4 FL (78-98); MEAN PLATELET VOLUME 7.7 FL (7.4-10.4); MONOCYTES % (AUTO) 9.2 % (2-12); NEUTROPHILS # (AUTO) 7.1 X10'3 (1.8-7.7); NEUTROPHILS % (AUTO) 63.5 % (42-75); PLATELET COUNT 466 X10'3 (140-440); RED BLOOD COUNT 3.67 X10'6 (4.70-6.10); RED CELL DISTRIBUTION WIDTH 19.8 % (11.5-14.5); WHITE BLOOD COUNT 11.2 X10'3 (4.5-11.0)
[2017-07-23] MEDS: HYDROcodone/acetaminophen 5mg/325mg tablet PO PRN ×2 (05:25→22:26)
[2017-07-23 05:48] LABS: ALANINE AMINOTRANSFERASE 38 U/L (12-78); ALBUMIN/GLOBULIN RATIO 0.3 (1.1-1.5); ALKALINE PHOSPHATASE 160 IU/L (46-116); ANION GAP 10 (8-16); ASPARTATE AMINO TRANSFERASE 61 U/L (10-37); BILIRUBIN,TOTAL 0.6 MG/DL (0.1-1.0); BLOOD UREA NITROGEN 45 MG/DL (7-18); BUN/CREATININE RATIO 9.1 (5.4-32.0); CALCIUM 9.2 MG/DL (8.5-10.1); CHLORIDE 101 MMOL/L (99-107); CREATININE 4.97 MG/DL (0.60-1.10); GLUCOSE 140 MG/DL (70-104); POTASSIUM 4.9 MMOL/L (3.5-5.1); SODIUM 137 MMOL/L (135-145); TOTAL CARBON DIOXIDE 26.1 MMOL/L (24-32); TOTAL PROTEIN 8.8 G/DL (6.4-8.2); eGFR 14 ML/MIN
[2017-07-23 06:01] LABS: % IRON SATURATION 9 % (11-46); IRON 14 UG/DL (53-167); TOTAL IRON BINDING CAPACITY 156 UG/DL (259-388)
[2017-07-23 07:00] VITALS: BP 141/57
[2017-07-23] MEDS: acetaminophen 325mg tablet PO PRN (07:45)
[2017-07-23] MEDS: K and/or MAG REPLACEMENT MC SCH (08:00)
[2017-07-23] MEDS: multivitamins, therapeutics tablet PO SCH (10:10)
[2017-07-23] MEDS: NUT.TX.GLUC.INTOLER,LAC-FR,REG (BOOST GLUCOSE CONTROL) 237 ML PO SCH ×3 (10:10→18:00)
[2017-07-23] MEDS: pregabalin 25mg capsule PO SCH ×2 (10:10→22:25)
[2017-07-23] MEDS: aspirin 81mg tab.chew PO SCH (10:10)
[2017-07-23] MEDS: lactobacillus rhamnosus 10,000 MMU CELLS/CAPSULE PO SCH ×2 (10:11→22:25)
[2017-07-23] MEDS: isosorbide mononitrate 30mg tab.SR.24H PO SCH (10:11)
[2017-07-23] MEDS: ferrous sulfate 325mg tablet PO SCH (10:11)
[2017-07-23] MEDS: carvedilol 6.25mg tablet PO SCH ×2 (10:11→22:25)
[2017-07-23] MEDS: clopidogrel 75mg tablet PO SCH (10:11)
[2017-07-23] MEDS: pantoprazole 40mg Tablet.DR PO SCH (10:12)
[2017-07-23] MEDS: docusate sod 100mg capsule PO SCH ×2 (10:12→22:25)
[2017-07-23] MEDS: atorvastatin 10mg tablet PO SCH (10:17)
[2017-07-23] MEDS: tamsulosin 0.4mg capsule PO SCH (10:18)
[2017-07-23 11:31] VITALS: BP 106/50
[2017-07-23 19:00] VITALS: BP 112/39
[2017-07-23 22:15] VITALS: BP 146/58
[2017-07-23] MEDS: sennosides/docusate sodium tablet PO SCH (22:27)
[2017-07-24] VITALS: BP 144/56
[2017-07-24] MEDS: HYDROcodone/acetaminophen 5mg/325mg tablet PO PRN ×3 (03:26→22:35)
[2017-07-24 05:05] LABS: BASOPHILS % (AUTO) 0.4 % (0-1); EOSINOPHILS # (AUTO) 0.4 X10'3 (0-0.9); EOSINOPHILS % (AUTO) 3.2 % (0-6); HEMATOCRIT 27.2 % (42.0-52.0); HEMOGLOBIN 8.7 g/dl (14.0-17.9); LYMPHOCYTES # (AUTO) 2.8 X10'3 (1.1-4.8); LYMPHOCYTES % (AUTO) 22.4 % (21-51); MEAN CORPUSCULAR HEMOGLOBIN 23.8 PG (27.0-31.0); MEAN CORPUSCULAR HGB CONC 31.9 % (33.0-36.5); MEAN CORPUSCULAR VOLUME 74.6 FL (78-98); MEAN PLATELET VOLUME 7.6 FL (7.4-10.4); MONOCYTES # (AUTO) 1.2 X10'3 (0-0.9); MONOCYTES % (AUTO) 9.3 % (2-12); NEUTROPHILS % (AUTO) 64.7 % (42-75); PLATELET COUNT 476 X10'3 (140-440); RED BLOOD COUNT 3.65 X10'6 (4.70-6.10); RED CELL DISTRIBUTION WIDTH 19.8 % (11.5-14.5); WHITE BLOOD COUNT 12.4 X10'3 (4.5-11.0)
[2017-07-24 05:42] LABS: ALANINE AMINOTRANSFERASE 37 U/L (12-78); ALBUMIN 1.9 G/DL (3.4-5.0); ALBUMIN/GLOBULIN RATIO 0.3 (1.1-1.5); ALKALINE PHOSPHATASE 162 IU/L (46-116); ANION GAP 13 (8-16); ASPARTATE AMINO TRANSFERASE 49 U/L (10-37); BILIRUBIN,TOTAL 0.6 MG/DL (0.1-1.0); BLOOD UREA NITROGEN 63 MG/DL (7-18); BUN/CREATININE RATIO 10.1 (5.4-32.0); CALCIUM 9.3 MG/DL (8.5-10.1); CHLORIDE 100 MMOL/L (99-107); CREATININE 6.21 MG/DL (0.60-1.10); GLUCOSE 142 MG/DL (70-104); POTASSIUM 5.1 MMOL/L (3.5-5.1); SODIUM 138 MMOL/L (135-145); TOTAL CARBON DIOXIDE 25.2 MMOL/L (24-32); TOTAL PROTEIN 8.7 G/DL (6.4-8.2); eGFR 11 ML/MIN
[2017-07-24] MEDS: pantoprazole 40mg Tablet.DR PO SCH (07:27)
[2017-07-24] MEDS: NUT.TX.GLUC.INTOLER,LAC-FR,REG (BOOST GLUCOSE CONTROL) 237 ML PO SCH ×3 (08:00→18:00)
[2017-07-24] MEDS: isosorbide mononitrate 30mg tab.SR.24H PO SCH (08:00)
[2017-07-24] MEDS: carvedilol 6.25mg tablet PO SCH ×2 (08:00→22:30)
[2017-07-24] MEDS: K and/or MAG REPLACEMENT MC SCH (08:00)
[2017-07-24 08:01] VITALS: BP 111/44
[2017-07-24] MEDS ORDERED: heparin 1,000unit/ml 10ml vial 10 ML IV ONE (08:14)
[2017-07-24] MEDS ORDERED: epoetin 20,000 units/ml inj IV ONE (08:15)
[2017-07-24] MEDS ORDERED: heparin 1,000 units/ml 10ml inj HE ONE ×2 (08:20)
[2017-07-24] MEDS: multivitamins, therapeutics tablet PO SCH (10:48)
[2017-07-24] MEDS: ferrous sulfate 325mg tablet PO SCH (10:48)
[2017-07-24] MEDS: pregabalin 25mg capsule PO SCH ×2 (10:48→22:30)
[2017-07-24] MEDS: aspirin 81mg tab.chew PO SCH (10:48)
[2017-07-24] MEDS: docusate sod 100mg capsule PO SCH ×2 (10:48→22:30)
[2017-07-24] MEDS: tamsulosin 0.4mg capsule PO SCH (10:49)
[2017-07-24] MEDS: atorvastatin 10mg tablet PO SCH (10:49)
[2017-07-24] MEDS: clopidogrel 75mg tablet PO SCH (10:49)
[2017-07-24] MEDS: lactobacillus rhamnosus 10,000 MMU CELLS/CAPSULE PO SCH (10:49)
[2017-07-24 11:21] VITALS: BP 127/54
[2017-07-24 19:00] VITALS: BP 141/70
[2017-07-24] MEDS: sennosides/docusate sodium tablet PO SCH (22:30)
[2017-07-25] VITALS: BP 141/57
[2017-07-25 05:16] LABS: BASOPHILS % (AUTO) 0.2 % (0-1); EOSINOPHILS # (AUTO) 0.4 X10'3 (0-0.9); EOSINOPHILS % (AUTO) 3.3 % (0-6); HEMATOCRIT 27.1 % (42.0-52.0); HEMOGLOBIN 8.6 g/dl (14.0-17.9); LYMPHOCYTES # (AUTO) 2.5 X10'3 (1.1-4.8); LYMPHOCYTES % (AUTO) 23.6 % (21-51); MEAN CORPUSCULAR HEMOGLOBIN 23.8 PG (27.0-31.0); MEAN CORPUSCULAR HGB CONC 31.9 % (33.0-36.5); MEAN CORPUSCULAR VOLUME 74.7 FL (78-98); MEAN PLATELET VOLUME 7.8 FL (7.4-10.4); MONOCYTES # (AUTO) 1.2 X10'3 (0-0.9); MONOCYTES % (AUTO) 11.1 % (2-12); NEUTROPHILS # (AUTO) 6.7 X10'3 (1.8-7.7); NEUTROPHILS % (AUTO) 61.8 % (42-75); PLATELET COUNT 485 X10'3 (140-440); RED BLOOD COUNT 3.63 X10'6 (4.70-6.10); RED CELL DISTRIBUTION WIDTH 19.1 % (11.5-14.5); WHITE BLOOD COUNT 10.8 X10'3 (4.5-11.0)
[2017-07-25 05:18] LABS: CYTOMEGALOVIRUS AB, IGG >10.00 U/mL (0.00-0.59); CYTOMEGALOVIRUS AB, IGM <30.0 AU/mL (0.0-29.9)
[2017-07-25] MEDS: HYDROcodone/acetaminophen 5mg/325mg tablet PO PRN ×2 (05:23→22:04)
[2017-07-25 05:48] LABS: ALANINE AMINOTRANSFERASE 31 U/L (12-78); ALBUMIN 1.9 G/DL (3.4-5.0); ALBUMIN/GLOBULIN RATIO 0.3 (1.1-1.5); ALKALINE PHOSPHATASE 167 IU/L (46-116); ANION GAP 10 (8-16); ASPARTATE AMINO TRANSFERASE 37 U/L (10-37); BILIRUBIN,TOTAL 0.6 MG/DL (0.1-1.0); BLOOD UREA NITROGEN 38 MG/DL (7-18); BUN/CREATININE RATIO 9.7 (5.4-32.0); CHLORIDE 98 MMOL/L (99-107); CREATININE 3.92 MG/DL (0.60-1.10); GLUCOSE 123 MG/DL (70-104); POTASSIUM 4.7 MMOL/L (3.5-5.1); SODIUM 135 MMOL/L (135-145); TOTAL CARBON DIOXIDE 27.5 MMOL/L (24-32); TOTAL PROTEIN 8.7 G/DL (6.4-8.2); eGFR 19 ML/MIN
[2017-07-25 06:25] LABS: CLARITY,URINE TURBID (Clear); COLOR,URINE YELLOW (Yellow); GLUCOSE, URINE NEGATIVE (Neg); KETONES,URINE NEGATIVE (Neg); LEUKOCYTE ESTERASE ,URINE LARGE (Neg); NITRITES, URINE NEGATIVE (Neg); OCCULT BLOOD,URINE LARGE (Neg); PROTEIN,URINE >=300 mg/dl (Neg); UROBILINOGEN,URINE 0.2 E.U/dL (0.2-1.0)
[2017-07-25 06:33] LABS: UA COLLECTION TYPE STRAIGHT CATH
[2017-07-25 06:37] LABS: WBC,URINE TNTC /HPF (0-4)
[2017-07-25 06:38] LABS: BACTERIA,URINE 2+ /HPF (Neg); SQUAMOUS EPITHELIAL CELL,UR NONE SEEN /LPF (FEW)
[2017-07-25 07:00] VITALS: BP 126/56
[2017-07-25] MEDS: docusate sod 100mg capsule PO SCH ×2 (07:24→22:03)
[2017-07-25] MEDS: carvedilol 6.25mg tablet PO SCH ×2 (07:24→22:03)
[2017-07-25] MEDS: multivitamins, therapeutics tablet PO SCH (07:24)
[2017-07-25] MEDS: isosorbide mononitrate 30mg tab.SR.24H PO SCH (07:24)
[2017-07-25] MEDS: pantoprazole 40mg Tablet.DR PO SCH (07:24)
[2017-07-25] MEDS: pregabalin 25mg capsule PO SCH ×2 (07:24→22:03)
[2017-07-25] MEDS: clopidogrel 75mg tablet PO SCH (07:25)
[2017-07-25] MEDS: tamsulosin 0.4mg capsule PO SCH (07:25)
[2017-07-25] MEDS: ferrous sulfate 325mg tablet PO SCH (07:25)
[2017-07-25] MEDS: atorvastatin 10mg tablet PO SCH (07:25)
[2017-07-25] MEDS: K and/or MAG REPLACEMENT MC SCH (07:27)
[2017-07-25] MEDS: aspirin 81mg tab.chew PO SCH (07:27)
[2017-07-25] MEDS: NUT.TX.GLUC.INTOLER,LAC-FR,REG (BOOST GLUCOSE CONTROL) 237 ML PO SCH ×3 (07:52→22:14)
[2017-07-25 11:19] VITALS: BP 101/48
[2017-07-25 19:30] VITALS: BP 146/57
[2017-07-25] MEDS: sennosides/docusate sodium tablet PO SCH (22:03)
[2017-07-26] VITALS: BP 144/53
[2017-07-26 05:36] LABS: BASOPHILS % (AUTO) 0.1 % (0-1); EOSINOPHILS # (AUTO) 0.3 X10'3 (0-0.9); EOSINOPHILS % (AUTO) 2.5 % (0-6); HEMATOCRIT 26.8 % (42.0-52.0); HEMOGLOBIN 8.6 g/dl (14.0-17.9); LYMPHOCYTES # (AUTO) 2.6 X10'3 (1.1-4.8); LYMPHOCYTES % (AUTO) 22.8 % (21-51); MEAN CORPUSCULAR HEMOGLOBIN 23.8 PG (27.0-31.0); MEAN CORPUSCULAR VOLUME 74.4 FL (78-98); MEAN PLATELET VOLUME 7.7 FL (7.4-10.4); MONOCYTES # (AUTO) 1.2 X10'3 (0-0.9); MONOCYTES % (AUTO) 10.4 % (2-12); NEUTROPHILS # (AUTO) 7.3 X10'3 (1.8-7.7); NEUTROPHILS % (AUTO) 64.2 % (42-75); PLATELET COUNT 517 X10'3 (140-440); RED CELL DISTRIBUTION WIDTH 19.8 % (11.5-14.5); WHITE BLOOD COUNT 11.4 X10'3 (4.5-11.0)
[2017-07-26] MEDS: HYDROcodone/acetaminophen 5mg/325mg tablet PO PRN ×2 (06:11→21:21)
[2017-07-26 06:19] LABS: ALANINE AMINOTRANSFERASE 26 U/L (12-78); ALBUMIN 1.9 G/DL (3.4-5.0); ALBUMIN/GLOBULIN RATIO 0.3 (1.1-1.5); ALKALINE PHOSPHATASE 151 IU/L (46-116); ANION GAP 12 (8-16); ASPARTATE AMINO TRANSFERASE 31 U/L (10-37); BILIRUBIN,TOTAL 0.5 MG/DL (0.1-1.0); BLOOD UREA NITROGEN 56 MG/DL (7-18); BUN/CREATININE RATIO 10.5 (5.4-32.0); CALCIUM 9.3 MG/DL (8.5-10.1); CHLORIDE 98 MMOL/L (99-107); CREATININE 5.35 MG/DL (0.60-1.10); GLUCOSE 132 MG/DL (70-104); POTASSIUM 4.8 MMOL/L (3.5-5.1); SODIUM 135 MMOL/L (135-145); TOTAL CARBON DIOXIDE 25.2 MMOL/L (24-32); TOTAL PROTEIN 8.7 G/DL (6.4-8.2); eGFR 13 ML/MIN
[2017-07-26] MEDS: isosorbide mononitrate 30mg tab.SR.24H PO SCH (08:00)
[2017-07-26] MEDS: carvedilol 6.25mg tablet PO SCH ×2 (08:00→21:21)
[2017-07-26] MEDS ORDERED: epoetin 20,000 units/ml inj IV ONE (08:00)
[2017-07-26] MEDS: K and/or MAG REPLACEMENT MC SCH (08:00)
[2017-07-26] MEDS ORDERED: heparin 1,000 units/ml 10ml inj HE ONE ×2 (08:00)
[2017-07-26] MEDS ORDERED: heparin 1,000unit/ml 10ml vial 10 ML IV ONE (08:00)
[2017-07-26] MEDS ORDERED: normal saline 1000ml 250 ML IV PRN (08:00)
[2017-07-26] MEDS: atorvastatin 10mg tablet PO SCH (08:37)
[2017-07-26] MEDS: pantoprazole 40mg Tablet.DR PO SCH (08:37)
[2017-07-26] MEDS: ferrous sulfate 325mg tablet PO SCH (08:37)
[2017-07-26] MEDS: clopidogrel 75mg tablet PO SCH (08:37)
[2017-07-26] MEDS: multivitamins, therapeutics tablet PO SCH (08:37)
[2017-07-26] MEDS: aspirin 81mg tab.chew PO SCH (08:37)
[2017-07-26] MEDS: tamsulosin 0.4mg capsule PO SCH (08:37)
[2017-07-26] MEDS: docusate sod 100mg capsule PO SCH ×2 (08:37→21:21)
[2017-07-26] MEDS: pregabalin 25mg capsule PO SCH ×2 (08:37→21:21)
[2017-07-26] MEDS: NUT.TX.GLUC.INTOLER,LAC-FR,REG (BOOST GLUCOSE CONTROL) 237 ML PO SCH ×3 (08:45→18:00)
[2017-07-26 09:12] VITALS: BP 147/54
[2017-07-26 13:12] VITALS: BP 124/62
[2017-07-26 18:00] VITALS: BP 125/80
[2017-07-26] MEDS: sennosides/docusate sodium tablet PO SCH (21:21)
[2017-07-27] VITALS: BP 137/46
[2017-07-27 05:23] LABS: BASOPHILS # (AUTO) 0.1 X10'3 (0-0.2); BASOPHILS % (AUTO) 0.7 % (0-1); EOSINOPHILS # (AUTO) 0.4 X10'3 (0-0.9); HEMATOCRIT 26.9 % (42.0-52.0); HEMOGLOBIN 8.6 g/dl (14.0-17.9); LYMPHOCYTES # (AUTO) 3.1 X10'3 (1.1-4.8); LYMPHOCYTES % (AUTO) 26.7 % (21-51); MEAN CORPUSCULAR HEMOGLOBIN 23.6 PG (27.0-31.0); MEAN CORPUSCULAR HGB CONC 32.1 % (33.0-36.5); MEAN CORPUSCULAR VOLUME 73.5 FL (78-98); MEAN PLATELET VOLUME 7.4 FL (7.4-10.4); MONOCYTES # (AUTO) 1.3 X10'3 (0-0.9); MONOCYTES % (AUTO) 11.3 % (2-12); NEUTROPHILS # (AUTO) 6.8 X10'3 (1.8-7.7); NEUTROPHILS % (AUTO) 58.3 % (42-75); PLATELET COUNT 526 X10'3 (140-440); RED BLOOD COUNT 3.66 X10'6 (4.70-6.10); RED CELL DISTRIBUTION WIDTH 19.5 % (11.5-14.5); WHITE BLOOD COUNT 11.7 X10'3 (4.5-11.0)
[2017-07-27 05:32] LABS: ALANINE AMINOTRANSFERASE 29 U/L (12-78); ALBUMIN 1.9 G/DL (3.4-5.0); ALBUMIN/GLOBULIN RATIO 0.3 (1.1-1.5); ALKALINE PHOSPHATASE 162 IU/L (46-116); ANION GAP 9 (8-16); ASPARTATE AMINO TRANSFERASE 36 U/L (10-37); BILIRUBIN,TOTAL 0.5 MG/DL (0.1-1.0); BLOOD UREA NITROGEN 27 MG/DL (7-18); BUN/CREATININE RATIO 8.4 (5.4-32.0); CALCIUM 9.1 MG/DL (8.5-10.1); CHLORIDE 101 MMOL/L (99-107); CREATININE 3.22 MG/DL (0.60-1.10); GLUCOSE 124 MG/DL (70-104); SODIUM 139 MMOL/L (135-145); TOTAL CARBON DIOXIDE 28.6 MMOL/L (24-32); TOTAL PROTEIN 8.8 G/DL (6.4-8.2); eGFR 23 ML/MIN
[2017-07-27 07:05] VITALS: BP 153/51
[2017-07-27] MEDS: K and/or MAG REPLACEMENT MC SCH (08:00)
[2017-07-27] MEDS: docusate sod 100mg capsule PO SCH ×2 (08:53→20:28)
[2017-07-27] MEDS: pregabalin 25mg capsule PO SCH ×2 (08:53→20:28)
[2017-07-27] MEDS: ferrous sulfate 325mg tablet PO SCH (08:53)
[2017-07-27] MEDS: pantoprazole 40mg Tablet.DR PO SCH (08:53)
[2017-07-27] MEDS: clopidogrel 75mg tablet PO SCH (08:54)
[2017-07-27] MEDS: aspirin 81mg tab.chew PO SCH (08:54)
[2017-07-27] MEDS: multivitamins, therapeutics tablet PO SCH (08:54)
[2017-07-27] MEDS: carvedilol 6.25mg tablet PO SCH ×2 (08:54→20:28)
[2017-07-27] MEDS: atorvastatin 10mg tablet PO SCH (08:54)
[2017-07-27] MEDS: tamsulosin 0.4mg capsule PO SCH (08:55)
[2017-07-27] MEDS: isosorbide mononitrate 30mg tab.SR.24H PO SCH (08:55)
[2017-07-27] MEDS: HYDROcodone/acetaminophen 5mg/325mg tablet PO PRN ×2 (08:56→19:19)
[2017-07-27] MEDS: NUT.TX.GLUC.INTOLER,LAC-FR,REG (BOOST GLUCOSE CONTROL) 237 ML PO SCH ×3 (08:57→19:16)
[2017-07-27 11:00] VITALS: BP 113/47
[2017-07-27 19:00] VITALS: BP 151/51
[2017-07-27] MEDS: sennosides/docusate sodium tablet PO SCH (20:28)
[2017-07-28] VITALS: BP 144/51
[2017-07-28 05:06] LABS: BASOPHILS # (AUTO) 0.1 X10'3 (0-0.2); BASOPHILS % (AUTO) 0.5 % (0-1); EOSINOPHILS # (AUTO) 0.4 X10'3 (0-0.9); EOSINOPHILS % (AUTO) 2.9 % (0-6); HEMATOCRIT 26.1 % (42.0-52.0); HEMOGLOBIN 8.3 g/dl (14.0-17.9); LYMPHOCYTES # (AUTO) 2.9 X10'3 (1.1-4.8); LYMPHOCYTES % (AUTO) 22.7 % (21-51); MEAN CORPUSCULAR HEMOGLOBIN 23.5 PG (27.0-31.0); MEAN CORPUSCULAR HGB CONC 31.9 % (33.0-36.5); MEAN CORPUSCULAR VOLUME 73.6 FL (78-98); MEAN PLATELET VOLUME 7.2 FL (7.4-10.4); MONOCYTES # (AUTO) 1.3 X10'3 (0-0.9); MONOCYTES % (AUTO) 10.1 % (2-12); NEUTROPHILS # (AUTO) 8.1 X10'3 (1.8-7.7); NEUTROPHILS % (AUTO) 63.8 % (42-75); PLATELET COUNT 565 X10'3 (140-440); RED BLOOD COUNT 3.55 X10'6 (4.70-6.10); RED CELL DISTRIBUTION WIDTH 19.9 % (11.5-14.5); WHITE BLOOD COUNT 12.7 X10'3 (4.5-11.0)
[2017-07-28 05:50] LABS: ALANINE AMINOTRANSFERASE 29 U/L (12-78); ALBUMIN 1.9 G/DL (3.4-5.0); ALBUMIN/GLOBULIN RATIO 0.3 (1.1-1.5); ALKALINE PHOSPHATASE 171 IU/L (46-116); ANION GAP 12 (8-16); ASPARTATE AMINO TRANSFERASE 40 U/L (10-37); BILIRUBIN,TOTAL 0.5 MG/DL (0.1-1.0); BLOOD UREA NITROGEN 50 MG/DL (7-18); BUN/CREATININE RATIO 10.5 (5.4-32.0); CALCIUM 9.4 MG/DL (8.5-10.1); CHLORIDE 100 MMOL/L (99-107); CREATININE 4.78 MG/DL (0.60-1.10); GLUCOSE 120 MG/DL (70-104); POTASSIUM 4.6 MMOL/L (3.5-5.1); SODIUM 138 MMOL/L (135-145); TOTAL CARBON DIOXIDE 26.4 MMOL/L (24-32); TOTAL PROTEIN 8.8 G/DL (6.4-8.2); eGFR 15 ML/MIN
[2017-07-28 07:00] VITALS: BP 144/53
[2017-07-28] MEDS: HYDROcodone/acetaminophen 5mg/325mg tablet PO PRN ×2 (07:03→20:05)
[2017-07-28] MEDS ORDERED: epoetin 20,000 units/ml inj IV ONE ×2 (08:00→16:35)
[2017-07-28] MEDS ORDERED: heparin 1,000 units/ml 10ml inj HE ONE ×2 (08:00)
[2017-07-28] MEDS: K and/or MAG REPLACEMENT MC SCH (08:00)
[2017-07-28] MEDS ORDERED: normal saline 1000ml 250 ML IV PRN (08:00)
[2017-07-28] MEDS ORDERED: heparin 1,000unit/ml 10ml vial 10 ML IV ONE (08:00)
[2017-07-28] MEDS: multivitamins, therapeutics tablet PO SCH (10:31)
[2017-07-28] MEDS: carvedilol 6.25mg tablet PO SCH ×2 (10:32→20:00)
[2017-07-28] MEDS: tamsulosin 0.4mg capsule PO SCH (10:32)
[2017-07-28] MEDS: ferrous sulfate 325mg tablet PO SCH (10:32)
[2017-07-28] MEDS: isosorbide mononitrate 30mg tab.SR.24H PO SCH (10:32)
[2017-07-28] MEDS: clopidogrel 75mg tablet PO SCH (10:33)
[2017-07-28] MEDS: atorvastatin 10mg tablet PO SCH (10:33)
[2017-07-28] MEDS: aspirin 81mg tab.chew PO SCH (10:33)
[2017-07-28] MEDS: pregabalin 25mg capsule PO SCH ×2 (10:33→20:05)
[2017-07-28] MEDS: docusate sod 100mg capsule PO SCH ×2 (10:34→20:05)
[2017-07-28] MEDS: pantoprazole 40mg Tablet.DR PO SCH (10:34)
[2017-07-28] MEDS: acetaminophen 325mg tablet PO PRN (10:34)
[2017-07-28] MEDS: NUT.TX.GLUC.INTOLER,LAC-FR,REG (BOOST GLUCOSE CONTROL) 237 ML PO SCH ×3 (10:35→18:00)
[2017-07-28 11:00] VITALS: BP 144/53
[2017-07-28 19:00] VITALS: BP 98/47
[2017-07-28] MEDS: sennosides/docusate sodium tablet PO SCH (21:06)
[2017-07-29] VITALS: BP 150/58
[2017-07-29 05:34] LABS: BASOPHILS # (AUTO) 0.1 X10'3 (0-0.2); BASOPHILS % (AUTO) 0.6 % (0-1); EOSINOPHILS # (AUTO) 0.3 X10'3 (0-0.9); EOSINOPHILS % (AUTO) 2.5 % (0-6); HEMATOCRIT 27.1 % (42.0-52.0); HEMOGLOBIN 8.5 g/dl (14.0-17.9); LYMPHOCYTES % (AUTO) 18.4 % (21-51); MEAN CORPUSCULAR HEMOGLOBIN 23.5 PG (27.0-31.0); MEAN CORPUSCULAR HGB CONC 31.4 % (33.0-36.5); MEAN CORPUSCULAR VOLUME 74.8 FL (78-98); MEAN PLATELET VOLUME 7.3 FL (7.4-10.4); MONOCYTES # (AUTO) 0.9 X10'3 (0-0.9); MONOCYTES % (AUTO) 8.5 % (2-12); NEUTROPHILS # (AUTO) 7.6 X10'3 (1.8-7.7); PLATELET COUNT 535 X10'3 (140-440); RED BLOOD COUNT 3.62 X10'6 (4.70-6.10); RED CELL DISTRIBUTION WIDTH 19.9 % (11.5-14.5); WHITE BLOOD COUNT 10.8 X10'3 (4.5-11.0)
[2017-07-29] MEDS: carvedilol 6.25mg tablet PO SCH ×2 (07:31→20:39)
[2017-07-29] MEDS: ferrous sulfate 325mg tablet PO SCH (07:31)
[2017-07-29] MEDS: isosorbide mononitrate 30mg tab.SR.24H PO SCH (07:32)
[2017-07-29] MEDS: clopidogrel 75mg tablet PO SCH (07:32)
[2017-07-29] MEDS: tamsulosin 0.4mg capsule PO SCH (07:32)
[2017-07-29] MEDS: pantoprazole 40mg Tablet.DR PO SCH (07:32)
[2017-07-29] MEDS: multivitamins, therapeutics tablet PO SCH (07:32)
[2017-07-29] MEDS: docusate sod 100mg capsule PO SCH ×2 (07:33→20:39)
[2017-07-29] MEDS: atorvastatin 10mg tablet PO SCH (07:33)
[2017-07-29] MEDS: aspirin 81mg tab.chew PO SCH (07:33)
[2017-07-29] MEDS: pregabalin 25mg capsule PO SCH ×2 (07:33→20:39)
[2017-07-29] MEDS: HYDROcodone/acetaminophen 5mg/325mg tablet PO PRN ×4 (07:34→23:06)
[2017-07-29] MEDS: K and/or MAG REPLACEMENT MC SCH (07:34)
[2017-07-29 07:50] VITALS: BP 146/59
[2017-07-29] MEDS: NUT.TX.GLUC.INTOLER,LAC-FR,REG (BOOST GLUCOSE CONTROL) 237 ML PO SCH ×3 (08:09→19:23)
[2017-07-29 14:52] VITALS: BP 113/43
[2017-07-29 19:00] VITALS: BP 140/53
[2017-07-29] MEDS: sennosides/docusate sodium tablet PO SCH (20:39)
[2017-07-30] VITALS: BP 157/56
[2017-07-30] MEDS: HYDROcodone/acetaminophen 5mg/325mg tablet PO PRN ×4 (06:38→20:20)
[2017-07-30 07:00] VITALS: BP 163/64
[2017-07-30] MEDS: K and/or MAG REPLACEMENT MC SCH (08:00)
[2017-07-30] MEDS: atorvastatin 10mg tablet PO SCH (09:56)
[2017-07-30] MEDS: isosorbide mononitrate 30mg tab.SR.24H PO SCH (09:56)
[2017-07-30] MEDS: pantoprazole 40mg Tablet.DR PO SCH (09:56)
[2017-07-30] MEDS: tamsulosin 0.4mg capsule PO SCH (09:57)
[2017-07-30] MEDS: pregabalin 25mg capsule PO SCH ×2 (09:57→20:19)
[2017-07-30] MEDS: carvedilol 6.25mg tablet PO SCH ×2 (09:57→20:19)
[2017-07-30] MEDS: aspirin 81mg tab.chew PO SCH (09:57)
[2017-07-30] MEDS: clopidogrel 75mg tablet PO SCH (09:57)
[2017-07-30] MEDS: multivitamins, therapeutics tablet PO SCH (09:58)
[2017-07-30] MEDS: docusate sod 100mg capsule PO SCH ×2 (09:58→20:20)
[2017-07-30] MEDS: NUT.TX.GLUC.INTOLER,LAC-FR,REG (BOOST GLUCOSE CONTROL) 237 ML PO SCH ×3 (09:58→20:30)
[2017-07-30] MEDS: ferrous sulfate 325mg tablet PO SCH (09:58)
[2017-07-30 11:00] VITALS: BP 121/45
[2017-07-30 20:00] VITALS: BP 145/52
[2017-07-30] MEDS: sennosides/docusate sodium tablet PO SCH (20:20)
[2017-07-31] VITALS: BP 137/59
[2017-07-31] MEDS: HYDROcodone/acetaminophen 5mg/325mg tablet PO PRN ×3 (00:22→19:39)
[2017-07-31 05:18] LABS: BASOPHILS % (AUTO) 0.2 % (0-1); EOSINOPHILS # (AUTO) 0.6 X10'3 (0-0.9); EOSINOPHILS % (AUTO) 4.9 % (0-6); HEMATOCRIT 25.9 % (42.0-52.0); HEMOGLOBIN 8.2 g/dl (14.0-17.9); LYMPHOCYTES # (AUTO) 2.7 X10'3 (1.1-4.8); LYMPHOCYTES % (AUTO) 21.9 % (21-51); MEAN CORPUSCULAR HEMOGLOBIN 23.2 PG (27.0-31.0); MEAN CORPUSCULAR HGB CONC 31.7 % (33.0-36.5); MEAN CORPUSCULAR VOLUME 73.3 FL (78-98); MEAN PLATELET VOLUME 7.5 FL (7.4-10.4); MONOCYTES # (AUTO) 0.9 X10'3 (0-0.9); MONOCYTES % (AUTO) 7.5 % (2-12); NEUTROPHILS # (AUTO) 7.9 X10'3 (1.8-7.7); NEUTROPHILS % (AUTO) 65.5 % (42-75); PLATELET COUNT 557 X10'3 (140-440); RED BLOOD COUNT 3.53 X10'6 (4.70-6.10); RED CELL DISTRIBUTION WIDTH 19.3 % (11.5-14.5); WHITE BLOOD COUNT 12.1 X10'3 (4.5-11.0)
[2017-07-31 05:38] LABS: ALBUMIN 1.9 G/DL (3.4-5.0); ANION GAP 12 (8-16); BLOOD UREA NITROGEN 64 MG/DL (7-18); BUN/CREATININE RATIO 11.4 (5.4-32.0); CALCIUM 9.4 MG/DL (8.5-10.1); CHLORIDE 99 MMOL/L (99-107); CREATININE 5.62 MG/DL (0.60-1.10); GLUCOSE 128 MG/DL (70-104); SODIUM 137 MMOL/L (135-145); eGFR 12 ML/MIN
[2017-07-31] MEDS: pantoprazole 40mg Tablet.DR PO SCH (07:30)
[2017-07-31 08:00] VITALS: BP 98/53
[2017-07-31] MEDS ORDERED: heparin 1,000 units/ml 10ml inj HE ONE ×2 (08:00)
[2017-07-31] MEDS: K and/or MAG REPLACEMENT MC SCH (08:00)
[2017-07-31] MEDS ORDERED: epoetin 20,000 units/ml inj IV ONE (08:00)
[2017-07-31] MEDS ORDERED: heparin 1,000unit/ml 10ml vial 10 ML IV ONE (08:00)
[2017-07-31] MEDS ORDERED: normal saline 1000ml 250 ML IV PRN (08:00)
[2017-07-31] MEDS: NUT.TX.GLUC.INTOLER,LAC-FR,REG (BOOST GLUCOSE CONTROL) 237 ML PO SCH ×3 (08:11→18:21)
[2017-07-31] MEDS: atorvastatin 10mg tablet PO SCH (09:53)
[2017-07-31] MEDS: isosorbide mononitrate 30mg tab.SR.24H PO SCH (09:53)
[2017-07-31] MEDS: ferrous sulfate 325mg tablet PO SCH (09:53)
[2017-07-31] MEDS: tamsulosin 0.4mg capsule PO SCH (09:53)
[2017-07-31] MEDS: clopidogrel 75mg tablet PO SCH (09:54)
[2017-07-31] MEDS: aspirin 81mg tab.chew PO SCH (09:54)
[2017-07-31] MEDS: carvedilol 6.25mg tablet PO SCH ×2 (09:54→21:15)
[2017-07-31] MEDS: pregabalin 25mg capsule PO SCH ×2 (09:54→21:14)
[2017-07-31] MEDS: docusate sod 100mg capsule PO SCH ×2 (09:54→21:14)
[2017-07-31] MEDS: multivitamins, therapeutics tablet PO SCH (09:54)
[2017-07-31 12:00] VITALS: BP 100/52
[2017-07-31 20:00] VITALS: BP_SYST 113; BP_SYST 124; BP_DIAS 73; BP_DIAS 75
[2017-07-31] MEDS: sennosides/docusate sodium tablet PO SCH (21:14)
[2017-07-31] MEDS: oxyCODONE IR 5mg (immed. release) tablet PO PRN (22:03)
[2017-08-01] VITALS: BP 139/49
[2017-08-01] MEDS: oxyCODONE IR 5mg (immed. release) tablet PO PRN ×4 (03:31→20:43)
[2017-08-01 08:00] VITALS: BP 136/52
[2017-08-01] MEDS: NUT.TX.GLUC.INTOLER,LAC-FR,REG (BOOST GLUCOSE CONTROL) 237 ML PO SCH ×3 (08:00→18:22)
[2017-08-01] MEDS: K and/or MAG REPLACEMENT MC SCH (08:00)
[2017-08-01] MEDS: multivitamins, therapeutics tablet PO SCH (09:03)
[2017-08-01] MEDS: atorvastatin 10mg tablet PO SCH (09:03)
[2017-08-01] MEDS: pregabalin 25mg capsule PO SCH ×2 (09:03→20:40)
[2017-08-01] MEDS: docusate sod 100mg capsule PO SCH ×2 (09:04→20:40)
[2017-08-01] MEDS: clopidogrel 75mg tablet PO SCH (09:04)
[2017-08-01] MEDS: tamsulosin 0.4mg capsule PO SCH (09:04)
[2017-08-01] MEDS: isosorbide mononitrate 30mg tab.SR.24H PO SCH (09:04)
[2017-08-01] MEDS: ferrous sulfate 325mg tablet PO SCH (09:05)
[2017-08-01] MEDS: carvedilol 6.25mg tablet PO SCH ×2 (09:05→20:40)
[2017-08-01] MEDS: aspirin 81mg tab.chew PO SCH (09:05)
[2017-08-01] MEDS: pantoprazole 40mg Tablet.DR PO SCH (09:11)
[2017-08-01 11:00] VITALS: BP 122/47
[2017-08-01 11:21] LABS: HBSAG SCREEN Negative (Negative)
[2017-08-01 20:00] VITALS: BP 128/59
[2017-08-01] MEDS: sennosides/docusate sodium tablet PO SCH (20:40)
[2017-08-02] VITALS: BP 141/54
[2017-08-02] MEDS: oxyCODONE IR 5mg (immed. release) tablet PO PRN ×2 (02:44→20:26)
[2017-08-02] MEDS: acetaminophen 325mg tablet PO PRN (02:45)
[2017-08-02 06:53] VITALS: BP 146/56
[2017-08-02] MEDS: K and/or MAG REPLACEMENT MC SCH (07:06)
[2017-08-02 07:18] LABS: BASOPHILS % (AUTO) 0.2 % (0-1); EOSINOPHILS # (AUTO) 0.2 X10'3 (0-0.9); EOSINOPHILS % (AUTO) 1.6 % (0-6); HEMATOCRIT 24.7 % (42.0-52.0); HEMOGLOBIN 7.9 g/dl (14.0-17.9); LYMPHOCYTES % (AUTO) 22.3 % (21-51); MEAN CORPUSCULAR HEMOGLOBIN 23.3 PG (27.0-31.0); MEAN CORPUSCULAR HGB CONC 31.9 % (33.0-36.5); MEAN CORPUSCULAR VOLUME 72.9 FL (78-98); MEAN PLATELET VOLUME 6.7 FL (7.4-10.4); MONOCYTES # (AUTO) 1.2 X10'3 (0-0.9); MONOCYTES % (AUTO) 8.9 % (2-12); NEUTROPHILS # (AUTO) 8.9 X10'3 (1.8-7.7); PLATELET COUNT 513 X10'3 (140-440); RED BLOOD COUNT 3.39 X10'6 (4.70-6.10); RED CELL DISTRIBUTION WIDTH 19.6 % (11.5-14.5); WHITE BLOOD COUNT 13.3 X10'3 (4.5-11.0)
[2017-08-02] MEDS: multivitamins, therapeutics tablet PO SCH (07:39)
[2017-08-02] MEDS: isosorbide mononitrate 30mg tab.SR.24H PO SCH (07:39)
[2017-08-02] MEDS: pantoprazole 40mg Tablet.DR PO SCH (07:40)
[2017-08-02] MEDS: carvedilol 6.25mg tablet PO SCH ×2 (07:40→20:25)
[2017-08-02] MEDS: atorvastatin 10mg tablet PO SCH (07:40)
[2017-08-02] MEDS: docusate sod 100mg capsule PO SCH ×2 (07:40→20:26)
[2017-08-02] MEDS: clopidogrel 75mg tablet PO SCH (07:40)
[2017-08-02] MEDS: HYDROcodone/acetaminophen 5mg/325mg tablet PO PRN (07:40)
[2017-08-02] MEDS: pregabalin 25mg capsule PO SCH ×2 (07:40→20:26)
[2017-08-02] MEDS: tamsulosin 0.4mg capsule PO SCH (07:40)
[2017-08-02] MEDS: ferrous sulfate 325mg tablet PO SCH (07:40)
[2017-08-02] MEDS: NUT.TX.GLUC.INTOLER,LAC-FR,REG (BOOST GLUCOSE CONTROL) 237 ML PO SCH ×3 (07:41→20:25)
[2017-08-02] MEDS: aspirin 81mg tab.chew PO SCH (07:41)
[2017-08-02] MEDS ORDERED: epoetin 20,000 units/ml inj IV ONE (08:00)
[2017-08-02] MEDS ORDERED: albumin (human) 25% 100ml IV 100 ML IV PRN (08:00)
[2017-08-02] MEDS ORDERED: heparin 1,000unit/ml 10ml vial 10 ML IV ONE (08:00)
[2017-08-02] MEDS ORDERED: heparin 1,000 units/ml 10ml inj IV ONE (08:00)
[2017-08-02] MEDS ORDERED: heparin 1,000 units/ml 10ml inj HE ONE ×2 (08:00)
[2017-08-02 11:38] LABS: ANISOCYTOSIS 2+; PLATELET ESTIMATE INCREASED
[2017-08-02 11:39] LABS: POLYCHROMASIA FEW; SCHISTOCYTES FEW; TARGET CELLS 2+
[2017-08-02 11:40] LABS: HYPOCHROMASIA 2+
[2017-08-02 11:47] VITALS: BP 126/45
[2017-08-02 20:00] VITALS: BP 134/48
[2017-08-02] MEDS: sennosides/docusate sodium tablet PO SCH (20:26)
[2017-08-03] VITALS: BP 131/43
[2017-08-03] MEDS: oxyCODONE IR 5mg (immed. release) tablet PO PRN ×4 (00:46→17:48)
[2017-08-03 07:14] VITALS: BP 137/51
[2017-08-03] MEDS: K and/or MAG REPLACEMENT MC SCH (08:00)
[2017-08-03] MEDS: carvedilol 6.25mg tablet PO SCH ×2 (08:12→20:27)
[2017-08-03] MEDS: tamsulosin 0.4mg capsule PO SCH (08:12)
[2017-08-03] MEDS: pregabalin 25mg capsule PO SCH ×2 (08:12→20:27)
[2017-08-03] MEDS: isosorbide mononitrate 30mg tab.SR.24H PO SCH (08:12)
[2017-08-03] MEDS: clopidogrel 75mg tablet PO SCH (08:13)
[2017-08-03] MEDS: atorvastatin 10mg tablet PO SCH (08:13)
[2017-08-03] MEDS: ferrous sulfate 325mg tablet PO SCH (08:13)
[2017-08-03] MEDS: aspirin 81mg tab.chew PO SCH (08:13)
[2017-08-03] MEDS: pantoprazole 40mg Tablet.DR PO SCH (08:13)
[2017-08-03] MEDS: docusate sod 100mg capsule PO SCH ×2 (08:13→20:26)
[2017-08-03] MEDS: multivitamins, therapeutics tablet PO SCH (08:13)
[2017-08-03] MEDS: NUT.TX.GLUC.INTOLER,LAC-FR,REG (BOOST GLUCOSE CONTROL) 237 ML PO SCH ×3 (08:35→18:02)
[2017-08-03 11:30] VITALS: BP 130/50
[2017-08-03 14:32] VITALS: BP 110/47
[2017-08-03 20:00] VITALS: BP 125/39
[2017-08-03] MEDS: sennosides/docusate sodium tablet PO SCH (20:27)
[2017-08-03] MEDS: HYDROcodone/acetaminophen 5mg/325mg tablet PO PRN (20:28)
[2017-08-04 00:01] VITALS: BP 116/42
[2017-08-04] MEDS: acetaminophen 325mg tablet PO PRN (01:17)
[2017-08-04] MEDS: HYDROcodone/acetaminophen 5mg/325mg tablet PO PRN (06:28)
[2017-08-04] MEDS ORDERED: heparin 1,000 units/ml 10ml inj HE ONE ×2 (08:00)
[2017-08-04] MEDS: NUT.TX.GLUC.INTOLER,LAC-FR,REG (BOOST GLUCOSE CONTROL) 237 ML PO SCH ×3 (08:00→20:43)
[2017-08-04] MEDS ORDERED: epoetin 20,000 units/ml inj IV ONE (08:00)
[2017-08-04] MEDS ORDERED: normal saline 1000ml 250 ML IV PRN (08:00)
[2017-08-04] MEDS ORDERED: heparin 1,000 units/ml 10ml inj IV ONE (08:00)
[2017-08-04] MEDS ORDERED: LIDOcaine 1% (10mg/ml) 2ml vial SQ ONE (08:00)
[2017-08-04] MEDS ORDERED: heparin 1,000unit/ml 10ml vial 10 ML IV ONE (08:00)
[2017-08-04] MEDS: K and/or MAG REPLACEMENT MC SCH (08:00)
[2017-08-04] MEDS: atorvastatin 10mg tablet PO SCH (09:25)
[2017-08-04] MEDS: carvedilol 6.25mg tablet PO SCH ×2 (09:25→20:43)
[2017-08-04] MEDS: pregabalin 25mg capsule PO SCH ×2 (09:25→20:45)
[2017-08-04] MEDS: pantoprazole 40mg Tablet.DR PO SCH (09:25)
[2017-08-04] MEDS: isosorbide mononitrate 30mg tab.SR.24H PO SCH (09:25)
[2017-08-04] MEDS: docusate sod 100mg capsule PO SCH ×2 (09:25→20:44)
[2017-08-04] MEDS: tamsulosin 0.4mg capsule PO SCH (09:25)
[2017-08-04] MEDS: ferrous sulfate 325mg tablet PO SCH (09:25)
[2017-08-04] MEDS: multivitamins, therapeutics tablet PO SCH (09:26)
[2017-08-04] MEDS: clopidogrel 75mg tablet PO SCH (09:26)
[2017-08-04] MEDS: aspirin 81mg tab.chew PO SCH (09:26)
[2017-08-04 09:45] VITALS: BP 108/41
[2017-08-04 09:52] LABS: BASOPHILS # (AUTO) 0.1 X10'3 (0-0.2); BASOPHILS % (AUTO) 0.7 % (0-1); EOSINOPHILS # (AUTO) 0.4 X10'3 (0-0.9); HEMATOCRIT 23.8 % (42.0-52.0); HEMOGLOBIN 7.6 g/dl (14.0-17.9); LYMPHOCYTES # (AUTO) 2.8 X10'3 (1.1-4.8); LYMPHOCYTES % (AUTO) 20.6 % (21-51); MEAN CORPUSCULAR HEMOGLOBIN 22.9 PG (27.0-31.0); MEAN CORPUSCULAR VOLUME 71.7 FL (78-98); MEAN PLATELET VOLUME 7.4 FL (7.4-10.4); MONOCYTES # (AUTO) 1.3 X10'3 (0-0.9); MONOCYTES % (AUTO) 9.5 % (2-12); NEUTROPHILS # (AUTO) 8.8 X10'3 (1.8-7.7); NEUTROPHILS % (AUTO) 66.2 % (42-75); PLATELET COUNT 574 X10'3 (140-440); RED BLOOD COUNT 3.31 X10'6 (4.70-6.10); RED CELL DISTRIBUTION WIDTH 19.4 % (11.5-14.5); WHITE BLOOD COUNT 13.4 X10'3 (4.5-11.0)
[2017-08-04 11:08] LABS: ALANINE AMINOTRANSFERASE 21 U/L (12-78); ALBUMIN 1.8 G/DL (3.4-5.0); ALBUMIN/GLOBULIN RATIO 0.3 (1.1-1.5); ALKALINE PHOSPHATASE 160 IU/L (46-116); ANION GAP 11 (8-16); ASPARTATE AMINO TRANSFERASE 33 U/L (10-37); BILIRUBIN,TOTAL 0.7 MG/DL (0.1-1.0); BLOOD UREA NITROGEN 48 MG/DL (7-18); BUN/CREATININE RATIO 9.4 (5.4-32.0); CALCIUM 9.3 MG/DL (8.5-10.1); CHLORIDE 100 MMOL/L (99-107); GLUCOSE 148 MG/DL (70-104); POTASSIUM 4.8 MMOL/L (3.5-5.1); SODIUM 139 MMOL/L (135-145); TOTAL CARBON DIOXIDE 28.5 MMOL/L (24-32); TOTAL PROTEIN 8.6 G/DL (6.4-8.2); eGFR 14 ML/MIN
[2017-08-04 11:49] VITALS: BP 118/44
[2017-08-04 18:00] VITALS: BP 135/48
[2017-08-04] MEDS: sennosides/docusate sodium tablet PO SCH (20:43)
[2017-08-04] MEDS: oxyCODONE IR 5mg (immed. release) tablet PO PRN (20:45)
[2017-08-05] VITALS: BP 123/44
[2017-08-05] MEDS: acetaminophen 325mg tablet PO PRN ×2 (01:14→07:29)
[2017-08-05] MEDS: oxyCODONE IR 5mg (immed. release) tablet PO PRN (05:30)
[2017-08-05 07:06] VITALS: BP 123/48
[2017-08-05] MEDS: pregabalin 25mg capsule PO SCH ×2 (07:19→19:58)
[2017-08-05] MEDS: docusate sod 100mg capsule PO SCH ×2 (07:19→19:58)
[2017-08-05] MEDS: atorvastatin 10mg tablet PO SCH (07:19)
[2017-08-05] MEDS: carvedilol 6.25mg tablet PO SCH ×2 (07:19→19:58)
[2017-08-05] MEDS: isosorbide mononitrate 30mg tab.SR.24H PO SCH (07:19)
[2017-08-05] MEDS: clopidogrel 75mg tablet PO SCH (07:20)
[2017-08-05] MEDS: pantoprazole 40mg Tablet.DR PO SCH (07:20)
[2017-08-05] MEDS: tamsulosin 0.4mg capsule PO SCH (07:20)
[2017-08-05] MEDS: ferrous sulfate 325mg tablet PO SCH (07:20)
[2017-08-05] MEDS: multivitamins, therapeutics tablet PO SCH (07:20)
[2017-08-05] MEDS: K and/or MAG REPLACEMENT MC SCH (08:00)
[2017-08-05] MEDS: NUT.TX.GLUC.INTOLER,LAC-FR,REG (BOOST GLUCOSE CONTROL) 237 ML PO SCH ×2 (08:30→13:11)
[2017-08-05] MEDS: aspirin 81mg tab.chew PO SCH (08:34)
[2017-08-05 08:37] VITALS: BP 107/43
[2017-08-05 10:30] LABS: BASOPHILS % (AUTO) 0 % (0-1); EOSINOPHILS # (AUTO) 0.3 X10'3 (0-0.9); EOSINOPHILS % (AUTO) 3.9 % (0-6); HEMATOCRIT 24.1 % (42.0-52.0); HEMOGLOBIN 7.6 g/dl (14.0-17.9); LYMPHOCYTES # (AUTO) 0.4 X10'3 (1.1-4.8); MEAN CORPUSCULAR HEMOGLOBIN 22.7 PG (27.0-31.0); MEAN CORPUSCULAR HGB CONC 31.8 % (33.0-36.5); MEAN CORPUSCULAR VOLUME 71.6 FL (78-98); MEAN PLATELET VOLUME 7.4 FL (7.4-10.4); MONOCYTES # (AUTO) 0.1 X10'3 (0-0.9); MONOCYTES % (AUTO) 0.8 % (2-12); NEUTROPHILS # (AUTO) 7.6 X10'3 (1.8-7.7); NEUTROPHILS % (AUTO) 90.3 % (42-75); PLATELET COUNT 530 X10'3 (140-440); RED BLOOD COUNT 3.36 X10'6 (4.70-6.10); RED CELL DISTRIBUTION WIDTH 19.7 % (11.5-14.5); WHITE BLOOD COUNT 8.5 X10'3 (4.5-11.0)
[2017-08-05 10:45] LABS: ALANINE AMINOTRANSFERASE 23 U/L (12-78); ALBUMIN 1.8 G/DL (3.4-5.0); ALBUMIN/GLOBULIN RATIO 0.3 (1.1-1.5); ALKALINE PHOSPHATASE 182 IU/L (46-116); ANION GAP 9 (8-16); ASPARTATE AMINO TRANSFERASE 50 U/L (10-37); BILIRUBIN,TOTAL 0.8 MG/DL (0.1-1.0); BLOOD UREA NITROGEN 34 MG/DL (7-18); BUN/CREATININE RATIO 8.9 (5.4-32.0); CALCIUM 9.2 MG/DL (8.5-10.1); CHLORIDE 98 MMOL/L (99-107); CREATININE 3.83 MG/DL (0.60-1.10); GLUCOSE 145 MG/DL (70-104); SODIUM 135 MMOL/L (135-145); TOTAL CARBON DIOXIDE 27.7 MMOL/L (24-32); TOTAL PROTEIN 8.8 G/DL (6.4-8.2); eGFR 19 ML/MIN
[2017-08-05 10:47] LABS: POTASSIUM 4.5 MMOL/L (3.5-5.1)
[2017-08-05 11:03] LABS: ANISOCYTOSIS 2+; BANDS% (MANUAL) 13.2 % (0-10); EOSINOPHILS % (MANUAL) 1.1 % (0-6); HYPOCHROMASIA 1+; LYMPHOCYTES % (MANUAL) 7.7 % (21-51); MICROCYTOSIS 2+; NUCLEATED RED BLOOD CELLS 3 /100WBC (0-0); PLATELET ESTIMATE INCREASED; TOTAL CELLS COUNTED 91
[2017-08-05 11:04] LABS: LARGE PLATELETS FEW; POIKILOCYTOSIS FEW; POLYCHROMASIA 2+; TARGET CELLS 2+
[2017-08-05 11:25] VITALS: BP 112/40
[2017-08-05] MEDS: HYDROcodone/acetaminophen 5mg/325mg tablet PO PRN (13:42)
[2017-08-05 18:00] VITALS: BP_SYST 114; BP_SYST 117; BP_DIAS 41; BP_DIAS 81
[2017-08-05] MEDS ORDERED: spironolactone 25 MG tablet PO ONE (19:55)
[2017-08-05] MEDS: sennosides/docusate sodium tablet PO SCH (20:00)
[2017-08-05] MEDS ORDERED: furosemide 20 MG/2 ML vial IV SCH (20:00)
[2017-08-06] VITALS: BP 117/47
[2017-08-06] MEDS: oxyCODONE IR 5mg (immed. release) tablet PO PRN (06:50)
[2017-08-06] MEDS: ferrous sulfate 325mg tablet PO SCH (06:55)
[2017-08-06] MEDS: docusate sod 100mg capsule PO SCH (06:55)
[2017-08-06] MEDS: carvedilol 6.25mg tablet PO SCH (06:55)
[2017-08-06] MEDS: atorvastatin 10mg tablet PO SCH (06:56)
[2017-08-06] MEDS: tamsulosin 0.4mg capsule PO SCH (06:56)
[2017-08-06] MEDS: isosorbide mononitrate 30mg tab.SR.24H PO SCH (06:56)
[2017-08-06] MEDS: pregabalin 25mg capsule PO SCH (06:56)
[2017-08-06] MEDS: aspirin 81mg tab.chew PO SCH (06:57)
[2017-08-06] MEDS: clopidogrel 75mg tablet PO SCH (06:57)
[2017-08-06] MEDS: multivitamins, therapeutics tablet PO SCH (06:57)
[2017-08-06] MEDS: K and/or MAG REPLACEMENT MC SCH (07:02)
[2017-08-06 07:11] VITALS: BP 112/68
[2017-08-06] MEDS ORDERED: spironolactone 25 MG tablet PO SCH (08:30)
[2017-08-06] MEDS: HYDROcodone/acetaminophen 5mg/325mg tablet PO PRN (09:33)
== END 2017-08-06 09:30 | disposition short-term general hospital (02) | DRG 853 ==
LOC: ER 10:46 → ED HOLD 14:56 → EDBEDREQ 15:49 → SUR 3N 16:39 → PACU 06-13 14:16 → SUR 3N 06-13 15:59
PROVIDERS: ADMIT Internal Medicine; ATTEND Legal Medicine
PROC: 5A1D70Z Performance of Urinary Filtration, Intermittent, Less than 6 Hours Per Day (ICD-10-PCS; 2017-05-26)
PROC: 5A1D70Z Performance of Urinary Filtration, Intermittent, Less than 6 Hours Per Day (ICD-10-PCS; 2017-05-29)
PROC: 0JB70ZZ Excision of Back Subcutaneous Tissue and Fascia, Open Approach (ICD-10-PCS; principal; 2017-05-29 13:49)
PROC: 5A1D70Z Performance of Urinary Filtration, Intermittent, Less than 6 Hours Per Day (ICD-10-PCS; 2017-05-31)
PROC: 5A1D70Z Performance of Urinary Filtration, Intermittent, Less than 6 Hours Per Day (ICD-10-PCS; 2017-06-03)
PROC: 5A1D70Z Performance of Urinary Filtration, Intermittent, Less than 6 Hours Per Day (ICD-10-PCS; 2017-06-05)
PROC: 5A1D70Z Performance of Urinary Filtration, Intermittent, Less than 6 Hours Per Day (ICD-10-PCS; 2017-06-07)
PROC: 5A1D70Z Performance of Urinary Filtration, Intermittent, Less than 6 Hours Per Day (ICD-10-PCS; 2017-06-09)
PROC: 5A1D70Z Performance of Urinary Filtration, Intermittent, Less than 6 Hours Per Day (ICD-10-PCS; 2017-06-12)
PROC: 0JD70ZZ Extraction of Back Subcutaneous Tissue and Fascia, Open Approach (ICD-10-PCS; 2017-06-13)
PROC: 5A1D70Z Performance of Urinary Filtration, Intermittent, Less than 6 Hours Per Day (ICD-10-PCS; 2017-06-14)
PROC: 5A1D70Z Performance of Urinary Filtration, Intermittent, Less than 6 Hours Per Day (ICD-10-PCS; 2017-06-16)
PROC: 5A1D70Z Performance of Urinary Filtration, Intermittent, Less than 6 Hours Per Day (ICD-10-PCS; 2017-06-19)
PROC: 5A1D70Z Performance of Urinary Filtration, Intermittent, Less than 6 Hours Per Day (ICD-10-PCS; 2017-06-21)
PROC: 5A1D70Z Performance of Urinary Filtration, Intermittent, Less than 6 Hours Per Day (ICD-10-PCS; 2017-06-23)
PROC: 5A1D70Z Performance of Urinary Filtration, Intermittent, Less than 6 Hours Per Day (ICD-10-PCS; 2017-06-26)
PROC: 5A1D70Z Performance of Urinary Filtration, Intermittent, Less than 6 Hours Per Day (ICD-10-PCS; 2017-06-28)
PROC: 5A1D70Z Performance of Urinary Filtration, Intermittent, Less than 6 Hours Per Day (ICD-10-PCS; 2017-06-30)
PROC: 5A1D70Z Performance of Urinary Filtration, Intermittent, Less than 6 Hours Per Day (ICD-10-PCS; 2017-07-03)
PROC: 5A1D70Z Performance of Urinary Filtration, Intermittent, Less than 6 Hours Per Day (ICD-10-PCS; 2017-07-05)
PROC: 5A1D70Z Performance of Urinary Filtration, Intermittent, Less than 6 Hours Per Day (ICD-10-PCS; 2017-07-07)
PROC: 5A1D70Z Performance of Urinary Filtration, Intermittent, Less than 6 Hours Per Day (ICD-10-PCS; 2017-07-10)
PROC: 0JB70ZZ Excision of Back Subcutaneous Tissue and Fascia, Open Approach (ICD-10-PCS; 2017-07-11)
PROC: 5A1D70Z Performance of Urinary Filtration, Intermittent, Less than 6 Hours Per Day (ICD-10-PCS; 2017-07-12)
PROC: 5A1D70Z Performance of Urinary Filtration, Intermittent, Less than 6 Hours Per Day (ICD-10-PCS; 2017-07-14)
PROC: 5A1D70Z Performance of Urinary Filtration, Intermittent, Less than 6 Hours Per Day (ICD-10-PCS; 2017-07-17)
PROC: 5A1D70Z Performance of Urinary Filtration, Intermittent, Less than 6 Hours Per Day (ICD-10-PCS; 2017-07-19)
PROC: 5A1D70Z Performance of Urinary Filtration, Intermittent, Less than 6 Hours Per Day (ICD-10-PCS; 2017-07-21)
PROC: 5A1D70Z Performance of Urinary Filtration, Intermittent, Less than 6 Hours Per Day (ICD-10-PCS; 2017-07-24)
PROC: 5A1D70Z Performance of Urinary Filtration, Intermittent, Less than 6 Hours Per Day (ICD-10-PCS; 2017-07-26)
PROC: 5A1D70Z Performance of Urinary Filtration, Intermittent, Less than 6 Hours Per Day (ICD-10-PCS; 2017-07-28)
PROC: 5A1D70Z Performance of Urinary Filtration, Intermittent, Less than 6 Hours Per Day (ICD-10-PCS; 2017-07-31)
PROC: 5A1D70Z Performance of Urinary Filtration, Intermittent, Less than 6 Hours Per Day (ICD-10-PCS; 2017-08-02)
PROC: 5A1D70Z Performance of Urinary Filtration, Intermittent, Less than 6 Hours Per Day (ICD-10-PCS; 2017-08-04)
DX: A41.9 Sepsis, unspecified organism (principal); L89.154 Pressure ulcer of sacral region, stage 4; I13.2 Hypertensive heart and chronic kidney disease with heart failure and with stage 5 chronic kidney disease, or end stage renal disease; E46 Unspecified protein-calorie malnutrition; G92 Toxic encephalopathy; N17.9 Acute kidney failure, unspecified; E11.22 Type 2 diabetes mellitus with diabetic chronic kidney disease; L89.313 Pressure ulcer of right buttock, stage 3; N18.6 End stage renal disease; M86.68 Other chronic osteomyelitis, other site; R18.8 Other ascites; I50.22 Chronic systolic (congestive) heart failure; E11.40 Type 2 diabetes mellitus with diabetic neuropathy, unspecified; B95.2 Enterococcus as the cause of diseases classified elsewhere; N40.0 Benign prostatic hyperplasia without lower urinary tract symptoms; B95.8 Unspecified staphylococcus as the cause of diseases classified elsewhere; G89.29 Other chronic pain; R25.1 Tremor, unspecified; R79.89 Other specified abnormal findings of blood chemistry; I25.10 Atherosclerotic heart disease of native coronary artery without angina pectoris; R14.0 Abdominal distension (gaseous); E11.51 Type 2 diabetes mellitus with diabetic peripheral angiopathy without gangrene; E11.69 Type 2 diabetes mellitus with other specified complication; E78.00 Pure hypercholesterolemia, unspecified; E78.5 Hyperlipidemia, unspecified; E86.0 Dehydration; E87.6 Hypokalemia; B19.20 Unspecified viral hepatitis C without hepatic coma; D63.8 Anemia in other chronic diseases classified elsewhere; K74.60 Unspecified cirrhosis of liver; Z99.2 Dependence on renal dialysis; Z74.01 Bed confinement status; Z79.899 Other long term (current) drug therapy; Z79.82 Long term (current) use of aspirin; Z79.4 Long term (current) use of insulin; Z86.19 Personal history of other infectious and parasitic diseases; Z86.73 Personal history of transient ischemic attack (TIA), and cerebral infarction without residual deficits; Z80.2 Family history of malignant neoplasm of other respiratory and intrathoracic organs; Z75.1 Person awaiting admission to adequate facility elsewhere; Z68.24 Body mass index [BMI] 24.0-24.9, adult
CPT/HCPCS: 36415; 70551; 71045; 72170; 74176; 76700; 76705; 80048; 80053; 80202; 81001; 82103; 82565; 82728; 82948; 83036; 83540; 83550; 83605; 83615; 83735; 84132; 84145; 84439; 84443; 85025; 85027; 85610; 85651; 85730; 86140; 86430; 86480; 86644; 86645; 86663; 86664; 86665; 86694; 86885; 86900; 86901; 86920; 87040; 87070; 87077; 87088; 87186; 87340; 90935; 92616; 93005; 93970; 97110; 97112; 97116; 97162; 97530; 97535; 99285; A4315; A4333; A4353; A4649; A6196; A6209; A6212; A6213; A6223; A6253; A6255; A6257; A6258; A6446; A6449; A7000; C9113; G0257; J0171; J0690; J0692; J0885; J1644; J1650; J2001; J2250; J2270; J2405; J2704; J2710; J3010; J3370; J3490; J7030; J7040; J7120; Q9963